=== PATIENT | male | born 1975 | race Caucasian/White ===

== ENCOUNTER 2021-08-07 06:22 | Outpatient (REF) | payer OTHER, SELFPAY ==
[2021-08-07 07:19] LABS: MANUAL DIFF FLAG NO
[2021-08-07 07:29] LABS: Basophils Percent Auto 0.8 % (0-2); Eosinophils Absolute Auto 0.1 X10*3/uL (0.0-0.4); Eosinophils Percent Auto 3.3 % (0-4); Hematocrit 48.2 % (42-52); Hemoglobin 16.3 g/dl (14.0-18.0); Imm Gran Abs Auto 0.02 X10*3/uL (0.00-0.03); Imm Gran Pct Auto 0.5 % (0.0-0.4); Lymphocytes Absolute Auto 1.2 X10*3/uL (1.2-4.9); Lymphocytes Percent Auto 30.5 % (20-40); Mean Corpuscular HGB Conc 33.8 g/dl (31.0-36.0); Mean Corpuscular Hemoglobin 33.2 pg (27.0-33.0); Mean Corpuscular Volume 98.2 fL (80-98); Mean Platelet Volume 10.4 fL (9.4-12.4); Monocytes Absolute Auto 0.6 X10*3/uL (0.1-1.2); Neutrophils Percent Auto 50.9 % (45-73); Platelet Count 190 X10*3/uL (160-400); Red Blood Count 4.91 X10*6/uL (4.60-5.80); Red Cell Distribution Width 12.1 % (11.0-16.0); White Blood Count 3.9 X10*3/uL (4.8-10.8)
[2021-08-07 07:57] LABS: Alanine Aminotransferase 101 U/L (0-40); Albumin Level 4.3 g/dL (3.5-5.0); Alkaline Phosphatase 64 U/L (39-117); Anion Gap 16 (12-20); Aspartate Amino Transferase 91 U/L (5-37); Bilirubin Total 0.4 mg/dL (0.0-1.0); Blood Urea Nitrogen 9 mg/dL (9-16); Calcium 9.1 mg/dL (8.4-10.2); Carbon Dioxide 24 mmol/L (22-29); Chloride 105 mmol/L (96-108); Cholesterol 131 mg/dL; Estimated Glomerular Filt Rate > 60; Glucose Random 103 mg/dL (60-115); HDL Cholesterol 44 mg/dL; Iron 99 mcg/dL (45-160); LDL Cholesterol Calculated 56 mg/dl; Percent Iron Saturation 26 % (15-50); Potassium 4.1 mmol/L (3.3-5.1); Sodium 141 mmol/L (135-145); Total Iron Binding Capacity 388 mcg/dL (228-428); Total Protein 7.3 g/dL (6.5-8.0); Triglycerides 159 mg/dL; Unsaturated Iron Binding 289 ug/dL
[2021-08-07 08:13] LABS: Ferritin 243 ng/mL (20-250); TSH reflex Free T4 1.36 uIU/mL (0.32-4.0)
== END 2021-08-07 06:23 | disposition home or self-care (01) ==
LOC: HO.LAB 06:22
PROVIDERS: PCP Internal Medicine; Visit Provider Internal Medicine
DX: Z00.00 Encounter for general adult medical examination without abnormal findings (principal); I10 Essential (primary) hypertension; K62.9 Disease of anus and rectum, unspecified; R53.0 Neoplastic (malignant) related fatigue
CPT/HCPCS: 36415; 80053; 80061; 82043; 82728; 83540; 84443; 85025

== ENCOUNTER → 2022-11-05 13:42 | Outpatient (BNVA) | payer SELFPAY | PROVIDERS: PCP Internal Medicine; Visit Provider Internal Medicine | DX: Z02.79 Encounter for issue of other medical certificate (principal) ==

== ENCOUNTER 2023-09-17 10:07 | Outpatient (REF) | payer OTHER, SELFPAY ==
--- NOTE | ~2023-09-17 | MR_ITS ---
EXAMINATION: MR ABDOMEN WITHOUT AND WITH CONTRAST CLINICAL INFORMATION: Colorectal carcinoma, history of perineal abscess, new liver lesion found on outside examination COMPARISON: CT scan of chest on 09/10/2023 at [facility] TECHNIQUE: Examination was performed in a high field strength MRI scanner. Multiplanar multiphasic imaging of the abdomen was performed without IV contrast enhancement. Multiphasic Axial T1 weighted fat suppressed images of the upper abdomen were obtained after IV injection of 10 mL Eovist. Coronal T1 weighted fat-suppressed images of the abdomen were obtained following the dynamic axial series. FINDINGS: LIVER: The liver is mildly enlarged, measuring 21.4 cm in vertical length. In anterior medial border of left hepatic lobe segment 3, a hypoenhancing observation is seen measuring 3.0 cm in AP and transverse diameter showing no signs of hepatobiliary phase signal hyperintensity. The lesion shows mild to moderate T2 hyperintensity, win enhancement. The calculated hepatic fat percentage is 0.7%, compatible with normal. HEPATOBILIARY: Gallbladder is normal without filling defects. Common bile duct is not dilated. PANCREAS: No focal pancreatic lesion with abnormal signal can be seen. SPLEEN: Spleen is borderline enlarged, measuring 12.8 cm in oblique vertical length without focal lesion. ADRENAL: Bilateral adrenal glands are normal in shape and size. KIDNEYS: Bilateral kidneys are normal in size without focal lesion. MR/MR abdomen wo/w con IMPRESSION: 1. Findings confirm the presence of mass lesion at anterior medial border of left hepatic lobe segment 3 showing no hepatobiliary contrast filling. Findings are not diagnostic for focal nodular hyperplasia. There are imaging findings favoring LR-M lesion. 2. No evidence of gallstones or hepatobiliary duct dilatation. 3. No focal pancreatic lesion is found.
[2023-09-17] MEDS: Gadoxetate Disodium 10 ML VIAL IVPUSH (11:30)
== END 2023-09-17 10:08 | disposition home or self-care (01) ==
LOC: HO.MRI 10:07
PROVIDERS: PCP Internal Medicine; Visit Provider Internal Medicine
DX: K76.9 Liver disease, unspecified (principal); C20 Malignant neoplasm of rectum
CPT/HCPCS: 74183; A9581

== ENCOUNTER → 2023-09-21 15:40 | Outpatient (BNV) | payer OTHER, SELFPAY | PROVIDERS: PCP Internal Medicine; Visit Provider Internal Medicine | DX: C20 Malignant neoplasm of rectum (principal) | CPT/HCPCS: 99214; 99215; G2211 ==

== ENCOUNTER → 2023-11-03 07:54 | Outpatient (BNVA) | payer SELFPAY | PROVIDERS: PCP Internal Medicine; Visit Provider Internal Medicine | DX: Z02.79 Encounter for issue of other medical certificate (principal) ==

== ENCOUNTER 2024-04-04 10:43 | Outpatient (AMB) | payer OTHER, SELFPAY ==
[2024-04-04 10:46] VITALS: BP 102/70; PULSE 90; O2SAT 97; BMI 33.7
--- NOTE | 2024-04-04 10:46 | MHC.OFFVIS ---
Vital Signs 04/04/24 10:46 Height 5 ft 11 in Weight 242 lb BMI 33.7 BP 102/70 Blood Pressure Location Lt brachial Position Sitting Pulse 90 Pulse Source Pulse Oximeter Pulse Oximetry (%) 97 Oxygen Delivery Method Room Air Intake Visit Reasons: sleep apnea Intake Note: pt is here new patient for KRYSTLE, pt has lost 40 lbs and is questioning if he still needs it. Has not used since February, post surgery. Foreign Student Adviser Required: No Allergies lisinopril Allergy (Verified 04/04/24 11:12) Cough Medication List - Last Reconciled 04/04/24 by Sujit Deleon MD losartan 100 mg PO DAILY metoprolol succinate ER 50 mg PO DAILY ondansetron 8 mg PO Q8H PRN Do you need a note to return to daycare/school/sports/work: No HPI HPI sleep apnea: Details: This the 1st visit of this 48 years old very pleasant gentleman, related to his history of obstructive sleep apnea.. Back in 2018 he had a home-based sleep study which was positive for severe obstructive sleep apnea with total sleep time RDI 68. He had symptoms of frequent snoring and respiratory pauses, as noted by his at that time. He also had some daytime sleepiness. After the diagnosis of obstructive sleep apnea he had CPAP titration in the sleep lab, and started on CPAP of 14 cm. He was followed up by sleep medicine services of [facility], he was very compliant and did well. In year 2022 he was diagnosed to have colon cancer with liver Mets. Initially treated at [facility] and received chemo radiation therapy. Then he went to [facility], where he had resection of the metastatic lesion in the liver and also colon resection. This was done only about 2 months ago. He is now receiving chemotherapy at our oncology service by Dr. Almaraz . He is tolerating the chemotherapy. And is very happy , not having any significant GI symptoms. He is also happy that he is not having any significant side effects from the chemotherapy. During all this ordeal he has lost more than 40 lb of weight. Since about 6 weeks he has not use the CPAP and is sleeping well. His has not complained to him about snoring or any respiratory pauses. He comes today to discuss if he would still need to use the CPAP are not. This gentleman is nonsmoker and also does not have any ongoing respiratory problems. [facility] Medical History KRYSTLE (obstructive sleep apnea) Obesity (BMI 30-39.9) Abscess, scrotum HBP (high blood pressure) Family History Brother Testicular cancer Maternal Aunt Breast CA Paternal Grandmother Uterine cancer Maternal Grandmother Cervical ca Social History Household Members: Spouse Patient Tobacco Use Status: Never used Tobacco service: Yes Current occupational status: employed Review of Systems Const All systems reviewed & are unremarkable except as noted in HPI and below Denies snoring Eyes Reports no additional complaints ENT Reports no additional complaints Card Denies chest pain, Denies syncope, Denies irregular heart rhythm, Denies leg edema and Denies dyspnea on exertion Resp Reports no additional complaints, Denies cough, Denies dyspnea on exertion, Denies snoring and Denies wheezing GI Reports no additional complaints Reports no additional complaints Musc Reports no additional complaints Skin/Breast Reports system reviewed and no additional complaints, except as documented Neuro Reports no additional complaints and Denies syncope Psych Reports no additional complaints Endo Reports no additional complaints Aller/Immun Denies wheezing Physical Exam Vital Signs: Last Vital Signs Pulse 90 04/04/24 10:46 BP 102/70 04/04/24 10:46 Pulse Ox 97 04/04/24 10:46 Oxygen Delivery Method Room Air 04/04/24 10:46 BMI result Body Mass Index 33.7 Const General: healthy appearing, comfortable, no acute distress, alert and awake Orientation/consciousness: patient oriented x3 HEENT Head: Yes normal to inspection General nose exam: No nasal polyps present and No nasal discharge present Face and sinus: Yes sinuses nontender Mouth: oropharynx normal (Mallampati class 2) Throat: Yes posterior oropharynx normal Eyes General: appearance normal, both eyes and all related structures Neck Neck: Yes normal visual inspection, Yes no lymphadenopathy, Yes trachea midline, Yes no JVD and Yes other (Neck circumference 17 in) Thyroid: Thyroid normal Chest Chest palpation & inspection: normal inspection of the chest, normal palpation of entire chest wall and no tenderness Resp Effort & Inspection: normal respiratory effort Auscultation: clear to auscultation bilaterally, no crackles, no rhonchi and no wheezes Cardio Palpation: normal PMI Rate: regular rate Rhythm: regular rhythm Heart sounds: no gallops and no murmurs Peripheral pulses: Peripheral pulses 2+ throughout GI Palpation (GI): Soft to palpation, nontender, No hepatosplenomegaly present and no masses Auscultation: normal bowel sounds Back/Spine/Pelvis Thoracic/Lumbar Spine: thoracic and lumbar spine normal to inspection Skin General skin exam: no rashes or lesions noted Neuro General: patient oriented x3 and no focal motor deficits Cranial nerves: Yes CN's II-XII intact bilaterally Extrem General: Yes normal to inspection, Yes no clubbing, cyanosis or edema and Yes no calf tenderness Psych Speech and movement: Normal speech and movement present Assessment & Plan Assessment & Plan (1) Obesity (BMI 30-39.9): Comment: He is only moderately overweight with BMI of 33.8. He has lost about 40+ lb in the last few months. Code(s): E66.9 - Obesity, unspecified Category: Medical Plan: Discussed about the weight and it will be beneficial if he could lose another 10-15 lb. But at least he should make sure he does not start putting on weight (2) KRYSTLE (obstructive sleep apnea): Comment: He does have history of obstructive sleep apnea which was relatively severe to start with. It responded very well to the treatment with CPAP, and he was very compliant before recent surgery. Now because of weight loss of more than 40 lb he is wondering if he still needs CPAP. At present he does not have any active symptoms of sleep apnea. Code(s): G47.33 - Obstructive sleep apnea (adult) (pediatric) Category: Medical Plan: Plan is to do a home-based sleep study, to see if he has and how much of residual sleep apnea. Then we can discuss and decide if he should restart using the CPAP. Orders: Orders RT home sleep study Today E66.9 - Obesity, unspecified, G47.33 - Obstructive sleep apnea (adult) (pediatric) Medications: Discontinued dexamethasone for 2 days after chemo Discontinued Reason: Patient Completed Course 4 mg PO BID 30 tabs 3RF Coding Level of Care Code New Pt Level 3 (33555) Diagnoses Obesity (BMI 30-39.9) E66.9 KRYSTLE (obstructive sleep apnea) G47.33
== END 2024-04-04 11:10 | disposition home or self-care (01) ==
PROVIDERS: PCP Internal Medicine; Visit Provider Internal Medicine
DX: E66.9 Obesity, unspecified (principal); G47.33 Obstructive sleep apnea (adult) (pediatric)
CPT/HCPCS: 99203

== ENCOUNTER → 2024-04-04 10:43 | Outpatient (BNVA) | payer OTHER, SELFPAY | PROVIDERS: PCP Internal Medicine; Visit Provider Internal Medicine ==

== ENCOUNTER → 2024-05-16 10:01 | Outpatient (REF) | payer OTHER, SELFPAY | LOC: HO.SL 10:01 | PROVIDERS: PCP Internal Medicine; Visit Provider Internal Medicine | DX: G47.33 Obstructive sleep apnea (adult) (pediatric) (principal); E66.9 Obesity, unspecified | CPT/HCPCS: 95806 ==

== ENCOUNTER → 2024-05-16 10:19 | Outpatient (BNV) | payer OTHER, SELFPAY | PROVIDERS: PCP Internal Medicine; Visit Provider Internal Medicine | DX: G47.33 Obstructive sleep apnea (adult) (pediatric) (principal) | CPT/HCPCS: 95806 ==

== ENCOUNTER 2024-06-05 15:51 | Outpatient (AMB) | payer OTHER, SELFPAY ==
[2024-06-05 16:01] VITALS: BP 110/80; PULSE 84; O2SAT 98; BMI 35.7
--- NOTE | 2024-06-05 16:01 | A.OFFVIS_ITS ---
Vital Signs 06/05/24 16:01 Height 5 ft 11 in Weight 255 lb 11.779 oz BMI 35.7 BP 110/80 Blood Pressure Location Lt brachial Position Sitting Pulse 84 Pulse Source Pulse Oximeter Pulse Oximetry (%) 98 Oxygen Delivery Method Room Air Intake Visit Reasons: Obstructive sleep apnea Intake Note: pt is here for follow up and feels good, here for follow up of sleep study. 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 In 2022 diagnosed to have colon cancer with Mets, treated with chemotherapy successfully. He had lost 40 lb of weight. And had stop using the CPAP. Recently seen by me because he started having increased snoring and fragmented of the sleep with some daytime sleepiness. We did his home-based sleep study and he is here to discuss the results. He claims that he sleeps most of the time on his back. And is sleeping fairly well. [facility] Medical History KRYSTLE (obstructive sleep apnea) Obesity (BMI 30-39.9) Abscess, scrotum HBP (high blood pressure) Family History Brother Testicular cancer Maternal Aunt Breast CA Paternal Grandmother Uterine cancer Maternal Grandmother Cervical ca Social History Household Members: Spouse Patient Tobacco Use Status: Never used Tobacco service: Yes Current occupational status: employed Review of Systems Const All systems reviewed & are unremarkable except as noted in HPI and below Denies snoring Eyes Reports no additional complaints ENT Reports no additional complaints Card Denies chest pain, Denies syncope, Denies irregular heart rhythm, Denies leg edema and Denies dyspnea on exertion Resp Reports no additional complaints, Denies cough, Denies dyspnea on exertion, Denies snoring and Denies wheezing GI Reports no additional complaints Reports no additional complaints Musc Reports no additional complaints Skin/Breast Reports system reviewed and no additional complaints, except as documented Neuro Reports no additional complaints and Denies syncope Psych Reports no additional complaints Endo Reports no additional complaints Aller/Immun Denies wheezing Physical Exam Vital Signs: Last Vital Signs Pulse 84 06/05/24 16:01 BP 110/80 06/05/24 16:01 Pulse Ox 98 06/05/24 16:01 Oxygen Delivery Method Room Air 06/05/24 16:01 BMI result Body Mass Index 35.7 Const General: healthy appearing, comfortable, no acute distress, alert and awake Orientation/consciousness: patient oriented x3 HEENT Head: Yes normal to inspection General nose exam: No nasal polyps present and No nasal discharge present Face and sinus: Yes sinuses nontender Mouth: oropharynx normal (Mallampati class 2) Throat: Yes posterior oropharynx normal Eyes General: appearance normal, both eyes and all related structures Neck Neck: Yes normal visual inspection, Yes no lymphadenopathy, Yes trachea midline, Yes no JVD and Yes other (Neck circumference 17 in) Thyroid: Thyroid normal Chest Chest palpation & inspection: normal inspection of the chest, normal palpation of entire chest wall and no tenderness Resp Effort & Inspection: normal respiratory effort Auscultation: clear to auscultation bilaterally, no crackles, no rhonchi and no wheezes Cardio Palpation: normal PMI Rate: regular rate Rhythm: regular rhythm Heart sounds: no gallops and no murmurs Peripheral pulses: Peripheral pulses 2+ throughout GI Palpation (GI): Soft to palpation, nontender, No hepatosplenomegaly present and no masses Auscultation: normal bowel sounds Back/Spine/Pelvis Thoracic/Lumbar Spine: thoracic and lumbar spine normal to inspection Skin General skin exam: no rashes or lesions noted Neuro General: patient oriented x3 and no focal motor deficits Cranial nerves: Yes CN's II-XII intact bilaterally Extrem General: Yes normal to inspection, Yes no clubbing, cyanosis or edema and Yes no calf tenderness Psych Speech and movement: Normal speech and movement present Results Reviewed Results Reviewed: Home-based sleep study, positive for rather severe degree of obstructive sleep apnea with nocturnal hypoxemia. O2 sat was below 88% for 51 minute. Assessment & Plan Assessment & Plan (1) Obesity (BMI 30-39.9): Comment: He is only moderately overweight with BMI of 35.7 He has lost about 40+ lb in the past 6 months . Now it is at a stand still . Code(s): E66.9 - Obesity, unspecified Category: Medical Plan: Advised to continue watching his diet and, make sure not to start putting on the weight again. (2) KRYSTLE (obstructive sleep apnea): Comment: He does have history of obstructive sleep apnea which was relatively severe to start with. It responded very well to the treatment with CPAP, and he was very compliant before recent surgery. Now because of weight loss of more than 40 lb he is wondering if he still needs CPAP. As noted above the repeat sleep study has shown that he still has rather severe degree of KRYSTLE, and nocturnal hypoxemia. Code(s): G47.33 - Obstructive sleep apnea (adult) (pediatric) Category: Medical Plan: Discuss the results with the patient and I have advise that he should go back on CPAP . Therapy CPAP with auto PAP mode and pressure setting 6-20 cm is ordered. He will start with fullface mask and later on may be changed to nasal mask or nasal pillows. Once he starts using CPAP regularly, we will get overnight oximetry recording to make sure that hypoxemia is corrected. Coding Level of Care Code Est Pt Level 3 (04454) Diagnoses Obesity (BMI 30-39.9) E66.9 KRYSTLE (obstructive sleep apnea) G47.33
== END 2024-06-05 16:28 | disposition home or self-care (01) ==
PROVIDERS: PCP Internal Medicine; Visit Provider Internal Medicine
DX: E66.9 Obesity, unspecified (principal); G47.33 Obstructive sleep apnea (adult) (pediatric)
CPT/HCPCS: 99213

== ENCOUNTER → 2024-06-05 15:51 | Outpatient (BNVA) | payer OTHER, SELFPAY | PROVIDERS: PCP Internal Medicine; Visit Provider Internal Medicine ==

== ENCOUNTER 2024-07-29 08:18 | Outpatient (REF) | payer OTHER, SELFPAY ==
[2024-07-29 08:46] LABS: MANUAL DIFF FLAG NO
[2024-07-29 09:26] LABS: Appearance Urine Clear; Color Urine Yellow; Glucose Urine UA Negative (Negative); Leukocyte Esterase Urine Negative (Negative); Nitrite Urine Negative (Negative); Specific Gravity - Urine <= 1.005 (1.005-1.025); Urine Blood Negative (Negative); Urine Ketones Negative (Negative); Urine Protein Negative (Neg-Trace)
[2024-07-29 09:29] LABS: Basophils Percent Auto 0.6 % (0-2); Eosinophils Absolute Auto 0.1 X10*3/uL (0.0-0.4); Eosinophils Percent Auto 1.9 % (0-4); Hematocrit 34.7 % (42.0-52.0); Hemoglobin 11.1 g/dl (14.0-18.0); Imm Gran Abs Auto 0.02 X10*3/uL (0.00-0.03); Imm Gran Pct Auto 0.6 % (0.0-0.4); Lymphocytes Absolute Auto 0.5 X10*3/uL (1.2-4.9); Lymphocytes Percent Auto 14.9 % (20-40); Mean Corpuscular Hemoglobin 26.2 pg (27.0-33.0); Mean Corpuscular Volume 81.8 fL (80.0-98.0); Mean Platelet Volume 9.5 fL (9.4-12.4); Monocytes Absolute Auto 0.6 X10*3/uL (0.1-1.2); Monocytes Percent Auto 17.1 % (2-11); Neutrophils Absolute Auto 2.4 x10*3/uL (2.0-8.3); Neutrophils Percent Auto 64.9 % (45-73); Platelet Count 208 X10*3/uL (160-400); Red Blood Count 4.24 X10*6/uL (4.60-5.80); Red Cell Distribution Width 20.4 % (11.0-16.0); White Blood Count 3.6 X10*3/uL (4.8-10.8)
[2024-07-29 10:02] LABS: Alanine Aminotransferase 17 U/L (0-40); Albumin Level 3.9 g/dL (3.5-5.0); Alkaline Phosphatase 120 U/L (39-117); Anion Gap 15 (12-20); Aspartate Amino Transferase 20 U/L (5-37); Bilirubin Total 0.3 mg/dL (0.0-1.0); Blood Urea Nitrogen 6 mg/dL (9-16); Calcium 9.2 mg/dL (8.4-10.2); Carbon Dioxide 24 mmol/L (22-29); Chloride 106 mmol/L (96-108); Estimated Glomerular Filt Rate > 60; Glucose Random 111 mg/dL (60-115); Potassium 3.6 mmol/L (3.3-5.1); Sodium 141 mmol/L (135-145); Total Protein 6.8 g/dL (6.5-8.0)
== END 2024-07-29 08:19 | disposition home or self-care (01) ==
LOC: HO.LAB 08:18
PROVIDERS: PCP Internal Medicine; Visit Provider Internal Medicine
DX: C20 Malignant neoplasm of rectum (principal)
CPT/HCPCS: 36415; 80053; 81003; 85025

== ENCOUNTER 2024-08-01 15:08 | Outpatient (AMB) | payer OTHER, SELFPAY ==
--- NOTE | 2024-08-01 15:10 | A.OFFVIS_ITS ---
Vital Signs 08/01/24 15:11 Weight 253 lb 8.505 oz BP 128/78 Blood Pressure Location Rt brachial Position Sitting Pulse 87 Pulse Source Pulse Oximeter Pulse Oximetry (%) 96 Oxygen Delivery Method Room Air Intake Visit Reasons: krystle Allergies lisinopril Allergy (Verified 08/01/24 15:26) Cough bee pollen [bee stings] Adverse Reaction (Verified 08/01/24 15:26) Swelling Medication List - Last Reconciled 08/01/24 by Teri Saravia LPN dexamethasone 4 mg PO BID diphenoxylate-atropine 2.5-0.025 mg (Lomotil) 1 tab PO DAILY metoprolol succinate ER 50 mg PO DAILY ondansetron 8 mg PO Q8H PRN Do you need a note to return to daycare/school/sports/work: No HPI HPI krystle: Details: Mitch, 48 years old gentleman, grossly obese, and has obstructive sleep apnea. Initially had stopped using the CPAP because he had lost about 40 lb of weight, during his ordeal with metastatic colon cancer. Repeat sleep study showed that he still had significant degree of obstructive sleep apnea. Since last visit he was prescribed CPAP device. He started using it on July 02 and since then has been using regularly. He loves his CPAP, and say is that actually without CPAP he would not be able to sleep. The current nasal mask that he has is much more comfortable than his previous 1. He sleeps good and denies any daytime sleepiness. His weight is holding at the same level , this is partly because he is on dexamethasone 4 mg b.i.d. as part of his ongoing chemotherapy for metastatic cancer. [facility] Medical History KRYSTLE (obstructive sleep apnea) Obesity (BMI 30-39.9) Abscess, scrotum HBP (high blood pressure) Family History Brother Testicular cancer Maternal Aunt Breast CA Paternal Grandmother Uterine cancer Maternal Grandmother Cervical ca Social History Household Members: Spouse Patient Tobacco Use Status: Never used Tobacco service: Yes Current occupational status: employed Review of Systems Const All systems reviewed & are unremarkable except as noted in HPI and below Denies snoring Eyes Reports no additional complaints ENT Reports no additional complaints Card Denies chest pain, Denies syncope, Denies irregular heart rhythm, Denies leg edema and Denies dyspnea on exertion Resp Reports no additional complaints, Denies cough, Denies dyspnea on exertion, Denies snoring and Denies wheezing GI Reports no additional complaints Reports no additional complaints Musc Reports no additional complaints Skin/Breast Reports system reviewed and no additional complaints, except as documented Neuro Reports no additional complaints and Denies syncope Psych Reports no additional complaints Endo Reports no additional complaints Aller/Immun Denies wheezing Physical Exam Vital Signs: Last Vital Signs Pulse 87 08/01/24 15:11 BP 128/78 08/01/24 15:11 Pulse Ox 96 08/01/24 15:11 Oxygen Delivery Method Room Air 08/01/24 15:11 Const General: healthy appearing, comfortable, no acute distress, alert and awake Orientation/consciousness: patient oriented x3 HEENT Head: Yes normal to inspection General nose exam: No nasal polyps present and No nasal discharge present Face and sinus: Yes sinuses nontender Mouth: oropharynx normal (Mallampati class 2) Throat: Yes posterior oropharynx normal Eyes General: appearance normal, both eyes and all related structures Neck Neck: Yes normal visual inspection, Yes no lymphadenopathy, Yes trachea midline, Yes no JVD and Yes other (Neck circumference 17 in) Thyroid: Thyroid normal Chest Chest palpation & inspection: normal inspection of the chest, normal palpation of entire chest wall and no tenderness Resp Effort & Inspection: normal respiratory effort Auscultation: clear to auscultation bilaterally, no crackles, no rhonchi and no wheezes Cardio Palpation: normal PMI Rate: regular rate Rhythm: regular rhythm Heart sounds: no gallops and no murmurs Peripheral pulses: Peripheral pulses 2+ throughout GI Palpation (GI): Soft to palpation, nontender, No hepatosplenomegaly present and no masses Auscultation: normal bowel sounds Back/Spine/Pelvis Thoracic/Lumbar Spine: thoracic and lumbar spine normal to inspection Skin General skin exam: no rashes or lesions noted Neuro General: patient oriented x3 and no focal motor deficits Cranial nerves: Yes CN's II-XII intact bilaterally Extrem General: Yes normal to inspection, Yes no clubbing, cyanosis or edema and Yes no calf tenderness Psych Speech and movement: Normal speech and movement present Results Reviewed Results Reviewed: Compliance report reviewed and he has used 18/30 nights because he started on July 10. Since then he is using 100% of the nights. Average use it per night 7 hours 7 minutes. Pressure used is 7-8 cm. There is minimal air leak, Residual AHI 0.4 Assessment & Plan Assessment & Plan (1) Obesity (BMI 30-39.9): Comment: He is only moderately overweight with BMI of 35.7 He had lost about 40+ lb in the past 6 months . Now it is at a stand still . Code(s): E66.9 - Obesity, unspecified Category: Medical Plan: I do not think he can be in active weight reduction program. Try to maintain. At a stable level (2) KRYSTLE (obstructive sleep apnea): Comment: He does have history of obstructive sleep apnea which was relatively severe to start with. It responded very well to the treatment with CPAP, and he was very compliant before recent surgery. Now because of weight loss of more than 40 lb he is wondering if he still needs CPAP. As noted above the repeat sleep study did show that he still has relatively severe KRYSTLE. Has been started on CPAP therapy which he likes very much, and feels better. Code(s): G47.33 - Obstructive sleep apnea (adult) (pediatric) Category: Medical Plan: Commended for good compliance and advised to continue using CPAP every night regularly (3) Rectal adenocarcinoma: Comment: He has history of metastatic adeno carcinoma of rectum. Being treated successfully with chemotherapy. He is very appreciative of the care that he is getting at oncology service. Code(s): C20 - Malignant neoplasm of rectum Category: Medical Plan: Continue close follow-up by the oncology service Coding Level of Care Code Est Pt Level 3 (08855) Diagnoses Obesity (BMI 30-39.9) E66.9 KRYSTLE (obstructive sleep apnea) G47.33 Rectal adenocarcinoma C20
[2024-08-01 15:11] VITALS: BP 128/78; PULSE 87; O2SAT 96
== END 2024-08-01 15:27 | disposition home or self-care (01) ==
PROVIDERS: PCP Internal Medicine; Visit Provider Internal Medicine
DX: E66.9 Obesity, unspecified (principal); G47.33 Obstructive sleep apnea (adult) (pediatric); C20 Malignant neoplasm of rectum
CPT/HCPCS: 99213

== ENCOUNTER → 2024-08-01 15:08 | Outpatient (BNVA) | payer OTHER, SELFPAY | PROVIDERS: PCP Internal Medicine; Visit Provider Internal Medicine ==

== ENCOUNTER 2024-10-07 07:54 | Outpatient (REF) | payer OTHER, SELFPAY ==
[2024-10-07 08:08] LABS: MANUAL DIFF FLAG NO
[2024-10-07 08:15] LABS: Appearance Urine Clear; Color Urine Yellow; Glucose Urine UA Negative (Negative); Leukocyte Esterase Urine Negative (Negative); Nitrite Urine Negative (Negative); Specific Gravity - Urine <= 1.005 (1.005-1.025); Urine Blood Negative (Negative); Urine Ketones Negative (Negative); Urine Protein Negative (Neg-Trace)
[2024-10-07 08:19] LABS: Basophils Percent Auto 0.6 % (0-2); Eosinophils Absolute Auto 0.1 X10*3/uL (0.0-0.4); Eosinophils Percent Auto 2.1 % (0-4); Hematocrit 34.2 % (42.0-52.0); Hemoglobin 11.2 g/dl (14.0-18.0); Imm Gran Abs Auto 0.01 X10*3/uL (0.00-0.03); Imm Gran Pct Auto 0.3 % (0.0-0.4); Lymphocytes Absolute Auto 0.6 X10*3/uL (1.2-4.9); Lymphocytes Percent Auto 18.3 % (20-40); Mean Corpuscular HGB Conc 32.7 g/dl (31.0-36.0); Mean Corpuscular Hemoglobin 29.3 pg (27.0-33.0); Mean Corpuscular Volume 89.5 fL (80.0-98.0); Mean Platelet Volume 9.1 fL (9.4-12.4); Monocytes Absolute Auto 0.6 X10*3/uL (0.1-1.2); Monocytes Percent Auto 18.3 % (2-11); Neutrophils Percent Auto 60.4 % (45-73); Platelet Count 161 X10*3/uL (160-400); Red Blood Count 3.82 X10*6/uL (4.60-5.80); Red Cell Distribution Width 21.2 % (11.0-16.0); White Blood Count 3.3 X10*3/uL (4.8-10.8)
[2024-10-07 08:27] LABS: Alanine Aminotransferase 23 U/L (0-40); Albumin Level 3.6 g/dL (3.5-5.0); Alkaline Phosphatase 108 U/L (39-117); Anion Gap 18 (12-20); Aspartate Amino Transferase 26 U/L (5-37); Bilirubin Total 0.4 mg/dL (0.0-1.0); Blood Urea Nitrogen 6 mg/dL (9-16); Calcium 8.9 mg/dL (8.4-10.2); Carbon Dioxide 20 mmol/L (22-29); Chloride 104 mmol/L (96-108); Estimated Glomerular Filt Rate > 60; Glucose Random 116 mg/dL (60-115); Sodium 138 mmol/L (135-145); Total Protein 6.2 g/dL (6.5-8.0)
== END 2024-10-07 07:55 | disposition home or self-care (01) ==
LOC: HO.LAB 07:54
PROVIDERS: PCP Internal Medicine; Visit Provider Internal Medicine
DX: C20 Malignant neoplasm of rectum (principal)
CPT/HCPCS: 36415; 80053; 81003; 85025

== ENCOUNTER 2024-10-21 07:11 | Outpatient (REF) | payer OTHER, SELFPAY ==
[2024-10-21 07:53] LABS: MANUAL DIFF FLAG NO
[2024-10-21 09:06] LABS: Basophils Percent Auto 0.3 % (0-2); Eosinophils Percent Auto 1.2 % (0-4); Hematocrit 33.7 % (42.0-52.0); Hemoglobin 11.1 g/dl (14.0-18.0); Imm Gran Abs Auto 0.02 X10*3/uL (0.00-0.03); Imm Gran Pct Auto 0.6 % (0.0-0.4); Lymphocytes Absolute Auto 0.4 X10*3/uL (1.2-4.9); Lymphocytes Percent Auto 13.6 % (20-40); Mean Corpuscular HGB Conc 32.9 g/dl (31.0-36.0); Mean Corpuscular Hemoglobin 30.5 pg (27.0-33.0); Mean Corpuscular Volume 92.6 fL (80.0-98.0); Mean Platelet Volume 9.7 fL (9.4-12.4); Monocytes Absolute Auto 0.6 X10*3/uL (0.1-1.2); Neutrophils Absolute Auto 2.2 x10*3/uL (2.0-8.3); Neutrophils Percent Auto 67.3 % (45-73); Platelet Count 156 X10*3/uL (160-400); Red Blood Count 3.64 X10*6/uL (4.60-5.80); Red Cell Distribution Width 19.9 % (11.0-16.0); White Blood Count 3.2 X10*3/uL (4.8-10.8)
[2024-10-21 09:44] LABS: Alanine Aminotransferase 17 U/L (0-40); Albumin Level 3.8 g/dL (3.5-5.0); Alkaline Phosphatase 88 U/L (39-117); Anion Gap 16 (12-20); Aspartate Amino Transferase 22 U/L (5-37); Bilirubin Total 0.3 mg/dL (0.0-1.0); Blood Urea Nitrogen 9 mg/dL (9-16); Calcium 8.9 mg/dL (8.4-10.2); Carbon Dioxide 23 mmol/L (22-29); Chloride 106 mmol/L (96-108); Estimated Glomerular Filt Rate > 60; Glucose Random 103 mg/dL (60-115); Potassium 3.8 mmol/L (3.3-5.1); Sodium 141 mmol/L (135-145); Total Protein 6.6 g/dL (6.5-8.0)
[2024-10-21 09:57] LABS: Appearance Urine Clear; Color Urine Yellow; Glucose Urine UA Negative (Negative); Leukocyte Esterase Urine Negative (Negative); Nitrite Urine Negative (Negative); PH 5.5 (5.0-9.0); Urine Blood Negative (Negative); Urine Ketones Negative (Negative); Urine Protein Trace mg/dL (Neg-Trace)
== END 2024-10-21 07:12 | disposition home or self-care (01) ==
LOC: HO.LAB 07:11
PROVIDERS: PCP Internal Medicine; Visit Provider Internal Medicine
DX: C20 Malignant neoplasm of rectum (principal)
CPT/HCPCS: 36415; 80053; 81003; 85025

== ENCOUNTER → 2024-10-27 12:56 | Outpatient (BNVA) | payer SELFPAY | PROVIDERS: PCP Internal Medicine; Visit Provider Registered Nurse | DX: Z02.79 Encounter for issue of other medical certificate (principal) ==

== ENCOUNTER 2024-12-04 15:20 | Outpatient (AMB) | payer OTHER, SELFPAY ==
[2024-12-04 15:29] VITALS: BP 110/72; PULSE 98; O2SAT 97; BMI 36.1
--- NOTE | 2024-12-04 15:29 | MHC.OFFVIS ---
Vital Signs 12/04/24 15:29 Height 5 ft 11 in Weight 259 lb 0.69 oz BMI 36.1 BP 110/72 Blood Pressure Location Lt brachial Position Sitting Pulse 98 Pulse Source Pulse Oximeter Pulse Oximetry (%) 97 Oxygen Delivery Method Room Air Intake Visit Reasons: krystle Intake Note: pt is here for follow up and states he is doing well with cpap Allergies lisinopril Allergy (Verified 12/04/24 15:49) Cough bee pollen [bee stings] Adverse Reaction (Verified 12/04/24 15:49) Swelling Medication List - Last Reviewed 12/04/24 by SARAHY Harkins apixaban 10 mg PO DAILY dexamethasone 4 mg PO BID diphenoxylate-atropine 2.5-0.025 mg 1 tab PO BID PRN metoprolol succinate ER 50 mg PO DAILY ondansetron 8 mg PO Q8H PRN Do you need a note to return to daycare/school/sports/work: No HPI HPI krystle: Details: TRISHA IS 48 YEARS OLD GENTLEMAN GROSSLY OBESE, WITH A KNOWN HISTORY OF COLON CANCER AND LIVER METS. HE HAS HAD RESECTION OF THE LIVER METS WELL RESECTION OF THE COLON AT [facility], AND IS BEING TREATED WITH CHEMOTHERAPY AT OUR ON ONCOLOGY SERVICE/ DR BROWN . HE IS DOING VERY WELL. HE HAS NOT LOST ANY WEIGHT. CONTINUES TO HAVE OBSTRUCTIVE SLEEP APNEA, WHICH IS WELL TREATED WITH THE USE OF CPAP. HIS CURRENT FULLFACE MASK IS VERY COMFORTABLE AND HE LIKES TO USE IT. RECENTLY FOUND TO HAVE PULMONARY EMBOLI ON THE CT SCAN . AT [facility] AND HE IS ON APIXABAN 10 MG DAILY. THIS GENTLEMAN DOES NOT HAVE ANY CHRONIC PULMONARY DISEASE SUCH ASTHMA OR COPD. [facility] Medical History KRYSTLE (obstructive sleep apnea) Obesity (BMI 30-39.9) Abscess, scrotum HBP (high blood pressure) Family History Brother Testicular cancer Maternal Aunt Breast CA Paternal Grandmother Uterine cancer Maternal Grandmother Cervical ca Social History Household Members: Spouse Patient Tobacco Use Status: Never used Tobacco service: Yes Current occupational status: employed Review of Systems Const All systems reviewed & are unremarkable except as noted in HPI and below Denies snoring Eyes Reports no additional complaints ENT Reports no additional complaints Card Denies chest pain, Denies syncope, Denies irregular heart rhythm, Denies leg edema and Denies dyspnea on exertion Resp Reports no additional complaints, Denies cough, Denies dyspnea on exertion, Denies snoring and Denies wheezing GI Reports no additional complaints Reports no additional complaints Musc Reports no additional complaints Skin/Breast Reports system reviewed and no additional complaints, except as documented Neuro Reports no additional complaints and Denies syncope Psych Reports no additional complaints Endo Reports no additional complaints Aller/Immun Denies wheezing Physical Exam Const General: healthy appearing, comfortable, no acute distress, alert and awake Orientation/consciousness: patient oriented x3 HEENT Head: Yes normal to inspection General nose exam: No nasal polyps present and No nasal discharge present Face and sinus: Yes sinuses nontender Mouth: oropharynx normal (Mallampati class 2) Throat: Yes posterior oropharynx normal Eyes General: appearance normal, both eyes and all related structures Neck Neck: Yes normal visual inspection, Yes no lymphadenopathy, Yes trachea midline, Yes no JVD and Yes other (Neck circumference 17 in) Thyroid: Thyroid normal Chest Chest palpation & inspection: normal inspection of the chest, normal palpation of entire chest wall and no tenderness Resp Effort & Inspection: normal respiratory effort Auscultation: clear to auscultation bilaterally, no crackles, no rhonchi and no wheezes Cardio Palpation: normal PMI Rate: regular rate Rhythm: regular rhythm Heart sounds: no gallops and no murmurs Peripheral pulses: Peripheral pulses 2+ throughout GI Palpation (GI): Soft to palpation, nontender, No hepatosplenomegaly present and no masses Auscultation: normal bowel sounds Back/Spine/Pelvis Thoracic/Lumbar Spine: thoracic and lumbar spine normal to inspection Skin General skin exam: no rashes or lesions noted Neuro General: patient oriented x3 and no focal motor deficits Cranial nerves: Yes CN's II-XII intact bilaterally Extrem General: Yes normal to inspection, Yes no clubbing, cyanosis or edema and Yes no calf tenderness Psych Speech and movement: Normal speech and movement present Results Reviewed Results Reviewed: COMPLIANCE REPORT FOR THE LAST 30 NIGHTS INDICATES THAT HE HAS USED 100% OF THE NIGHTS, AVERAGE USE IT PER NIGHT 6 HOURS 52 MINUTES. THERE IS NO SIGNIFICANT AIR LEAK AND RESIDUAL AHI IS ONLY 0.8 Assessment & Plan Assessment & Plan (1) Obesity (BMI 30-39.9): Comment: He is only moderately overweight with BMI of 36.1 He had lost about 40+ lb in the past 6 months . Now it is at a stand still . Code(s): E66.9 - Obesity, unspecified Category: Medical Plan: DISCUSSED ABOUT DIET, AND NEED TO LOSE WEIGHT. (2) KRYSTLE (obstructive sleep apnea): Comment: He does have history of obstructive sleep apnea which was relatively severe to start with. It responded very well to the treatment with CPAP, and he was very compliant before recent surgery. Now because of weight loss of more than 40 lb he was retested and found to severe obstructive sleep apnea. Since 2023 he is started on a new CPAP device with auto PAP settings. He uses CPAP very regularly and benefiting, with sleep of about 7 hours per night. No issues with the mask and CPAP device at this time. Code(s): G47.33 - Obstructive sleep apnea (adult) (pediatric) Category: Medical Plan: Commended for good compliance. Encouraged to keep on using the CPAP every night (3) Rectal adenocarcinoma: Comment: He has history of metastatic adeno carcinoma of rectum. Being treated successfully with chemotherapy. He is very appreciative of the care that he is getting at oncology service. Code(s): C20 - Malignant neoplasm of rectum Category: Medical Plan: Encouraged to keep on getting his treatment . Coding Level of Care Code Est Pt Level 3 (99146) Diagnoses Obesity (BMI 30-39.9) E66.9 KRYSTLE (obstructive sleep apnea) G47.33 Rectal adenocarcinoma C20
== END 2024-12-04 15:44 | disposition home or self-care (01) ==
PROVIDERS: PCP Internal Medicine; Visit Provider Internal Medicine
DX: E66.9 Obesity, unspecified (principal); G47.33 Obstructive sleep apnea (adult) (pediatric); C20 Malignant neoplasm of rectum
CPT/HCPCS: 99213

== ENCOUNTER 2024-12-09 07:22 | Outpatient (REF) | payer OTHER, SELFPAY ==
[2024-12-09 07:37] LABS: MANUAL DIFF FLAG NO
[2024-12-09 08:12] LABS: Appearance Urine Clear; Color Urine Yellow; Glucose Urine UA Negative (Negative); Leukocyte Esterase Urine Negative (Negative); Nitrite Urine Negative (Negative); PH 5.5 (5.0-9.0); Urine Blood Negative (Negative); Urine Ketones Negative (Negative); Urine Protein Negative (Neg-Trace)
[2024-12-09 08:17] LABS: Basophils Percent Auto 0.3 % (0-2); Eosinophils Percent Auto 0.9 % (0-4); Hematocrit 35.7 % (42.0-52.0); Hemoglobin 11.8 g/dl (14.0-18.0); Imm Gran Abs Auto 0.02 X10*3/uL (0.00-0.03); Imm Gran Pct Auto 0.6 % (0.0-0.4); Lymphocytes Absolute Auto 0.6 X10*3/uL (1.2-4.9); Lymphocytes Percent Auto 17.7 % (20-40); Mean Corpuscular HGB Conc 33.1 g/dl (31.0-36.0); Mean Corpuscular Hemoglobin 30.9 pg (27.0-33.0); Mean Corpuscular Volume 93.5 fL (80.0-98.0); Mean Platelet Volume 10.7 fL (9.4-12.4); Monocytes Absolute Auto 0.6 X10*3/uL (0.1-1.2); Neutrophils Percent Auto 62.5 % (45-73); Platelet Count 182 X10*3/uL (160-400); Red Blood Count 3.82 X10*6/uL (4.60-5.80); Red Cell Distribution Width 16.8 % (11.0-16.0); White Blood Count 3.3 X10*3/uL (4.8-10.8)
[2024-12-09 08:38] LABS: Alanine Aminotransferase 22 U/L (0-40); Albumin Level 3.7 g/dL (3.5-5.0); Alkaline Phosphatase 101 U/L (39-117); Anion Gap 11 (12-20); Aspartate Amino Transferase 28 U/L (5-37); Bilirubin Total 0.2 mg/dL (0.0-1.0); Blood Urea Nitrogen 5 mg/dL (9-16); Calcium 8.5 mg/dL (8.4-10.2); Carbon Dioxide 27 mmol/L (22-29); Chloride 105 mmol/L (96-108); Estimated Glomerular Filt Rate > 60; Glucose Random 113 mg/dL (60-115); Potassium 3.7 mmol/L (3.3-5.1); Sodium 139 mmol/L (135-145); Total Protein 6.6 g/dL (6.5-8.0)
== END 2024-12-09 07:23 | disposition home or self-care (01) ==
LOC: HO.LAB 07:22
PROVIDERS: PCP Internal Medicine; Visit Provider Internal Medicine
DX: C20 Malignant neoplasm of rectum (principal)
CPT/HCPCS: 36415; 80053; 81003; 85025

== ENCOUNTER 2025-01-06 07:18 | Outpatient (REF) | payer OTHER, SELFPAY ==
--- OUTSIDE RECORDS SUMMARY | 2025-01-06 07:21 | XMS_ITS ---
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 Past Plans ONCOLOGY INFUSION THERAPY Plan Name Start Date Discontinue Date Treatment Medications Discontinue Reason Plan Provider [facility] OP IV FLUIDS (HYDRATION) 06/07/2023 01/18/2024 sodium chloride 0.9% bolus (NS) Therapy Complete Quynh Dotson MD Radiation Treatments * No radiation treatments are documented for this patient in [facility]. Treatments may have been administered in another system.
--- OUTSIDE RECORDS SUMMARY | 2025-01-06 07:21 | XMS_ITS | Clinical Summary ---
Author Organization [facility] Address [address] [place] [address] Care Team Providers Care Program Advisor Name Role Phone Denis Issa MD Primary Care Provider Unavail able Allergies Active Allergy Reactions Criticality Noted Date Comments Bee Sting 05/21/2023 Medications Medication Sig Dispensed Refills Start Date End Date Status docusate sodium (COLACE) 100 MG capsule TAKE 1 CAPSULE BY MOUTH TWICE A DAY NEEDED FOR ADJUNCT TO NARCOTIC ANALGESIA 0 05/05/2023 Active losartan (COZAAR) 100 MG tablet Take 1 tablet (100 mg total) by mouth daily. 0 04/20/2023 Active metoprolol succinate (TOPROL-XL) 24 hr tablet 100 mg Take 1 tablet (100 mg total) by mouth daily. 0 04/20/2023 Active diphenoxylate-atropi ne (LOMOTIL) 2.5-0.025 MG per tablet Take 1 tablet by mouth 4 (four) times a day as needed for diarrhea. 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 06/18/2023 High creatinine 06/18/2023 Rectal cancer 05/07/2023 Family History Medical History Relation Name Comments Cancer Brother testicular Cancer Maternal Aunt Cancer Maternal Grandmother cevical Cancer Paternal Grandmother uterine Relation Name Status Comments Brother Maternal Aunt Maternal Grandmother Paternal Grandmother Social History Tobacco Use Types Packs/Day Years Used Date Smoking Tobacco: Never Smokeless Tobacco: Never Alcohol Use Standard Drinks/Week Comments Yes 5 (1 standard drink = 0.6 oz pur e alcohol) Sex and Gender Information Value Date Recorded Sex Assigned at Male 05/07/2023 1:26 PM EDT Gender Identity Not on file Sexual Orientation Not on file Job Start Date Occupation Industry Not on file Not on file Not on file Last Filed Vital Signs Vital Sign Reading Time Taken Comments Blood Pressure 103/53 07/16/2023 1:38 PM EDT Pulse 60 07/16/2023 1:38 PM EDT Temperature 37 ??C (98.6 ??F) 07/16/2023 1:38 PM EDT Respiratory Rate - - Oxygen Saturation 99% 07/16/2023 1:38 PM EDT Inhaled Oxygen Concentration - - Weight 122.5 kg (270 lb) 07/16/2023 1:38 PM EDT Height 179.1 cm (5' 10.5 ) 07/02/2023 1:09 PM ED T Body Mass Index 38.19 07/02/2023 1:09 PM EDT Plan of Treatment Health Maintenance Due Date Last Done Comments Hepatitis B Vaccines (1 of 3 - 3-dose series) 1974 Hepatitis C Screening 1974 COVID-19 Vaccine (#1) 1979 Pneumococcal Vaccine (1 of 2 - PCV) 1980 Depression Screening 1986 BMI Counseling 1992 Preventative Health Evaluation 1992 DTap / Tdap / Td (1 - Tdap) 1993 Shingrix-Zoster Vaccine (1 of 2) 1993 Colon Cancer Screening (Colonoscopy) 2019 Influenza Vaccine (#1) 2024 RSV Ped < 20 months Aged Out No longe r eligible based on patient's age to complete this topic Care Teams Program Advisor Relationship Specialty Start Date End Date Denis Issa MD PCP - General Internal Medicine 05/07/23
--- OUTSIDE RECORDS SUMMARY | 2025-01-06 07:21 | XMS_ITS | Clinical Summary ---
Author Organization [facility] [place] [address] Care Team Providers Care Automotive Accessory Installer Name Role Phone Denis Issa MD Primary Care Provider [phone] Surgical History Surgery Date Site/Laterality Comments VARICOCELECTOMY PROCEDURE:VARICOCELE EXCISION Medical History Medical History Date Comments Hypertension DX:Hypertension Enlarged aorta (CMS/HCC) DX:Enla rged aorta (HCC) Family History Medical History Relation Name Comments Cancer Brother testicular Cancer Maternal Grandmother cevical Cancer Mother's Sister Cancer Paternal Grandmother uterine Relation Name Status Comments Brother Maternal Grandmother Mother's Sister Paternal Grandmother Social History Tobacco Use Types Packs/Day Years Used Date Smoking Tobacco: Never Smokeless Tobacco: Never Alcohol Use Standard Drinks/Week Comments Yes 5 (1 standard drink = 0.6 oz pur e alcohol) Sex and Gender Information Value Date Recorded Sex Assigned at Not on file Legal Sex Male 10:56 PM EST Gender Identity Not on file Sexual Orientation Not on file Obstetrics History Last Filed Vital Signs Vital Sign Reading Time Taken Comments Blood Pressure 104/65 08/20/2023 8:33 AM EDT Pulse 64 08/20/2023 8:33 AM EDT Temperature - - Respiratory Rate - - Oxygen Saturation - - Inhaled Oxygen Concentration - - Weight 125 kg (275 lb 8 oz) 08/20/2023 8:33 AM E DT Height 180.3 cm (5' 11 ) 08/20/2023 8:33 AM EDT Body Mass Index 38.42 08/20/2023 8:33 AM EDT Plan of Treatment Health Maintenance Due Date Last Done Comments COVID-19 Vaccine (#1) 1979 DTaP,Tdap,and Td Vaccines (1 - Tdap) 1993 Hepatitis B Vaccines (1 of 3 - 19+ 3-dose series) 1993 Pneumococcal Vaccine: 50+ Ye ars (1 of 2 - PCV) 1993 Pneumococcal Vaccine: Pediat rics (0 to 5 Years) and At-Risk Patients (6 to 64 Years) (1 of 2 - PCV) 1993 Zoster Vaccines (1 of 2) 1993 Cholesterol Screening (Lipid Panel) 10/18/2022 Colorectal Cancer Screening: Colonoscopy 10/18/2022 Depression Screening 10/18/2022 HIV Screening 10/18/2022 Hepatitis C Screening 10/18/2022 Social Influencers of Health Screening 10/18/2022 Influenza Vaccine (#1) 2024 HIB Vaccines Aged Out No longer eligi ble based on patient's age to complete this topic HPV Vaccines Aged Out No longer eligi ble based on patient's age to complete this topic Hepatitis A Vaccines Aged Out No long er eligible based on patient's age to complete this topic IPV Vaccines Aged Out No longer eligi ble based on patient's age to complete this topic MMR Vaccines Aged Out No longer eligi ble based on patient's age to complete this topic Meningococcal ACWY Vaccine Aged Out N o longer eligible based on patient's age to complete this topic Meningococcal B Vacine Aged Out No lo nger eligible based on patient's age to complete this topic RSV Immunization Patients Un iban 20 months Aged Out No longer eligible b ased on patient's age to complete this topic Varicella Vaccines Aged Out No longer eligible based on patient's age to complete this topic Care Teams Automotive Accessory Installer Relationship Specialty Start Date End Date Denis Issa MD PCP - General Internal Medicine 04/03/21
[2025-01-06 08:09] LABS: Basophils Percent Auto 0.5 % (0-2); Eosinophils Absolute Auto 0.1 X10*3/uL (0.0-0.4); Eosinophils Percent Auto 2.6 % (0-4); Hematocrit 37.7 % (42.0-52.0); Hemoglobin 12.5 g/dl (14.0-18.0); Lymphocytes Absolute Auto 0.3 X10*3/uL (1.2-4.9); Lymphocytes Percent Auto 14.9 % (20-40); MANUAL DIFF FLAG SCAN; Mean Corpuscular HGB Conc 33.2 g/dl (31.0-36.0); Mean Corpuscular Hemoglobin 30.6 pg (27.0-33.0); Mean Corpuscular Volume 92.4 fL (80.0-98.0); Mean Platelet Volume 9.7 fL (9.4-12.4); Monocytes Absolute Auto 0.3 X10*3/uL (0.1-1.2); Monocytes Percent Auto 15.9 % (2-11); Neutrophils Absolute Auto 1.3 x10*3/uL (2.0-8.3); Neutrophils Percent Auto 66.1 % (45-73); Platelet Count 139 X10*3/uL (160-400); Red Blood Count 4.08 X10*6/uL (4.60-5.80); Red Cell Distribution Width 17.1 % (11.0-16.0); SCAN SMEAR FLAG 1
[2025-01-06 09:03] LABS: SLIDE REVIEW VERIFIED
[2025-01-06 09:14] LABS: Alanine Aminotransferase 22 U/L (0-40); Albumin Level 3.7 g/dL (3.5-5.0); Alkaline Phosphatase 100 U/L (39-117); Anion Gap 13 (12-20); Aspartate Amino Transferase 28 U/L (5-37); Bilirubin Total 0.4 mg/dL (0.0-1.0); Blood Urea Nitrogen 5 mg/dL (9-16); Calcium 8.9 mg/dL (8.4-10.2); Carbon Dioxide 25 mmol/L (22-29); Chloride 104 mmol/L (96-108); Estimated Glomerular Filt Rate > 60; Glucose Random 115 mg/dL (60-115); Potassium 3.4 mmol/L (3.3-5.1); Sodium 139 mmol/L (135-145); Total Protein 6.9 g/dL (6.5-8.0)
[2025-01-06 09:23] LABS: Appearance Urine Clear; Color Urine Yellow; Glucose Urine UA Negative (Negative); Leukocyte Esterase Urine Negative (Negative); Nitrite Urine Negative (Negative); PH 5.5 (5.0-9.0); Specific Gravity - Urine 1.015 (1.005-1.025); UMIC TRIGGER UA YES; Urine Blood Negative (Negative); Urine Ketones Negative (Negative); Urine Protein 30 (1+) mg/dL (Neg-Trace)
[2025-01-06 09:30] LABS: Bacteria Urine None Seen (None Seen); Hyaline Casts Urine 0-2 /LPF (0-2); RBC Urine 0-2 /HPF (0-2); WBC Urine 0-5 /HPF (0-5)
== END 2025-01-06 07:19 | disposition home or self-care (01) ==
LOC: HO.LAB 07:18
PROVIDERS: PCP Internal Medicine; Visit Provider Internal Medicine
DX: C20 Malignant neoplasm of rectum (principal)
CPT/HCPCS: 36415; 80053; 81001; 85025

== ENCOUNTER 2025-01-20 07:12 | Outpatient (REF) | payer OTHER, SELFPAY ==
[2025-01-20 07:48] LABS: MANUAL DIFF FLAG NO
[2025-01-20 08:29] LABS: Basophils Percent Auto 0.7 % (0-2); Eosinophils Absolute Auto 0.1 X10*3/uL (0.0-0.4); Eosinophils Percent Auto 2.9 % (0-4); Hematocrit 35.8 % (42.0-52.0); Hemoglobin 11.8 g/dl (14.0-18.0); Imm Gran Abs Auto 0.01 X10*3/uL (0.00-0.03); Imm Gran Pct Auto 0.4 % (0.0-0.4); Lymphocytes Absolute Auto 0.4 X10*3/uL (1.2-4.9); Lymphocytes Percent Auto 14.6 % (20-40); Mean Corpuscular Hemoglobin 30.4 pg (27.0-33.0); Mean Corpuscular Volume 92.3 fL (80.0-98.0); Mean Platelet Volume 9.9 fL (9.4-12.4); Monocytes Absolute Auto 0.5 X10*3/uL (0.1-1.2); Monocytes Percent Auto 19.7 % (2-11); Neutrophils Absolute Auto 1.7 x10*3/uL (2.0-8.3); Neutrophils Percent Auto 61.7 % (45-73); Platelet Count 133 X10*3/uL (160-400); Red Blood Count 3.88 X10*6/uL (4.60-5.80); Red Cell Distribution Width 17.9 % (11.0-16.0); White Blood Count 2.7 X10*3/uL (4.8-10.8)
[2025-01-20 08:41] LABS: Appearance Urine Clear; Color Urine Yellow; Glucose Urine UA Negative (Negative); Leukocyte Esterase Urine Negative (Negative); Nitrite Urine Negative (Negative); PH 5.5 (5.0-9.0); Specific Gravity - Urine 1.015 (1.005-1.025); UMIC TRIGGER UA YES; Urine Blood Negative (Negative); Urine Ketones Trace mg/dL (Negative); Urine Protein 30 (1+) mg/dL (Neg-Trace)
[2025-01-20 08:46] LABS: Bacteria Urine None Seen (None Seen); Hyaline Casts Urine 0-2 /LPF (0-2); RBC Urine 0-2 /HPF (0-2); WBC Urine 0-5 /HPF (0-5)
[2025-01-20 09:07] LABS: Alanine Aminotransferase 23 U/L (0-40); Albumin Level 3.7 g/dL (3.5-5.0); Alkaline Phosphatase 112 U/L (39-117); Anion Gap 14 (12-20); Aspartate Amino Transferase 35 U/L (5-37); Bilirubin Total 0.5 mg/dL (0.0-1.0); Blood Urea Nitrogen 5 mg/dL (9-16); Calcium 8.8 mg/dL (8.4-10.2); Carbon Dioxide 25 mmol/L (22-29); Chloride 103 mmol/L (96-108); Estimated Glomerular Filt Rate > 60; Glucose Random 154 mg/dL (60-115); Potassium 3.8 mmol/L (3.3-5.1); Sodium 138 mmol/L (135-145); Total Protein 6.9 g/dL (6.5-8.0)
== END 2025-01-20 07:13 | disposition home or self-care (01) ==
LOC: HO.LAB 07:12
PROVIDERS: PCP Internal Medicine; Visit Provider Internal Medicine
DX: C20 Malignant neoplasm of rectum (principal)
CPT/HCPCS: 36415; 80053; 81001; 85025

== ENCOUNTER 2025-03-31 07:14 | Outpatient (REF) | payer OTHER, SELFPAY ==
--- OUTSIDE RECORDS SUMMARY | 2025-03-31 07:16 | XMS_ITS | Clinical Summary ---
Author Organization [facility] Address [address] [place] [address] Care Team Providers Care Commercial Roofing Estimator Name Role Phone Denis Issa MD Primary [...] age to complete this topic Care Teams Commercial Roofing Estimator Relationship Specialty Start Date End Date Denis Issa MD PCP - General Internal Medicine 05/07/23
--- OUTSIDE RECORDS SUMMARY | 2025-03-31 07:16 | XMS_ITS ---
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 Past Plans ONCOLOGY INFUSION THERAPY Plan Name Start Date Discontinue Date Treatment Medications Discontinue Reason Plan Provider [facility] OP IV FLUIDS (HYDRATION) 06/07/2023 01/18/2024 sodium chloride 0.9% bolus (NS) Therapy Complete Quynh Dotson MD Radiation Treatments * No radiation treatments are documented for this patient in [facility]. Treatments may have been administered in another system.
--- OUTSIDE RECORDS SUMMARY | 2025-03-31 07:16 | XMS_ITS | Clinical Summary ---
Author Organization [facility] [place] [address] Care Team Providers Care Developer Architect Name Role Phone Denis Issa MD Primary Care Provider [phone] Surgical History Surgery Date Site/Laterality Comments VARICOCELECTOMY PROCEDURE:VARICOCELE EXCISION Medical History Medical History Date Comments Hypertension DX:Hypertension Enlarged aorta (CMS/HCC V24) DX: Enlarged aorta (HCC) Family History Medical History Relation [...] Td Vaccines (1 - Tdap) 1993 Hepatitis A Vaccines (1 of 2 - Risk 2-dose series) 1993 Hepatitis B Vaccines (1 of 3 [...] Influencers of Health Screening 10/18/2022 Influenza Vaccine (Season Ended) 2025 HIB Vaccines Aged Out No longer eligi [...] age to complete this topic Meningococcal B Vaccine Aged Out No l onger eligible based on patient's age to complete this topic RSV Immunization Patients Un iban 20 months Aged Out No longer eligible b ased on patient's age to complete this topic Varicella Vaccines Aged Out No longer eligible based on patient's age to complete this topic Care Teams Developer Architect Relationship Specialty Start Date End Date Denis Issa MD PCP - General Internal Medicine 04/03/21
[2025-03-31 08:13] LABS: Appearance Urine Clear; Color Urine Yellow; Glucose Urine UA Negative (Negative); Leukocyte Esterase Urine Negative (Negative); Nitrite Urine Negative (Negative); PH 5.5 (5.0-9.0); Urine Blood Negative (Negative); Urine Ketones Trace mg/dL (Negative); Urine Protein Trace mg/dL (Neg-Trace)
[2025-03-31 08:17] LABS: Basophils Percent Auto 0.4 % (0-2); Eosinophils Percent Auto 1.6 % (0-4); Hematocrit 34.5 % (42.0-52.0); Hemoglobin 11.3 g/dl (14.0-18.0); Imm Gran Abs Auto 0.01 X10*3/uL (0.00-0.03); Imm Gran Pct Auto 0.4 % (0.0-0.4); Lymphocytes Absolute Auto 0.6 X10*3/uL (1.2-4.9); Lymphocytes Percent Auto 24.3 % (20-40); MANUAL DIFF FLAG SCAN; Mean Corpuscular HGB Conc 32.8 g/dl (31.0-36.0); Mean Corpuscular Hemoglobin 31.6 pg (27.0-33.0); Mean Corpuscular Volume 96.4 fL (80.0-98.0); Mean Platelet Volume 11.1 fL (9.4-12.4); Monocytes Absolute Auto 0.7 X10*3/uL (0.1-1.2); Monocytes Percent Auto 25.5 % (2-11); Neutrophils Absolute Auto 1.2 x10*3/uL (2.0-8.3); Neutrophils Percent Auto 47.8 % (45-73); Platelet Count 137 X10*3/uL (160-400); Red Blood Count 3.58 X10*6/uL (4.60-5.80); Red Cell Distribution Width 18.7 % (11.0-16.0); SCAN SMEAR FLAG 1; White Blood Count 2.6 X10*3/uL (4.8-10.8)
[2025-03-31 08:22] LABS: NRBC Pct Auto 1.2 /100WBC (0.0-0.2)
[2025-03-31 08:54] LABS: Alanine Aminotransferase 43 U/L (0-40); Albumin Level 3.9 g/dL (3.5-5.0); Alkaline Phosphatase 121 U/L (39-117); Anion Gap 17 (12-20); Aspartate Amino Transferase 45 U/L (5-37); Bilirubin Total 0.6 mg/dL (0.0-1.0); Blood Urea Nitrogen 6 mg/dL (9-16); Calcium 8.9 mg/dL (8.4-10.2); Carbon Dioxide 23 mmol/L (22-29); Chloride 104 mmol/L (96-108); Estimated Glomerular Filt Rate > 60; Glucose Random 120 mg/dL (60-115); Magnesium 1.7 mg/dL (1.6-2.6); Potassium 3.5 mmol/L (3.3-5.1); Sodium 140 mmol/L (135-145); Total Protein 6.6 g/dL (6.5-8.0)
[2025-03-31 08:57] LABS: SLIDE REVIEW VERIFIED
== END 2025-03-31 07:15 | disposition home or self-care (01) ==
LOC: HO.LAB 07:14
PROVIDERS: PCP Internal Medicine; Visit Provider Internal Medicine
DX: C20 Malignant neoplasm of rectum (principal)
CPT/HCPCS: 36415; 80053; 81003; 83735; 85025

== ENCOUNTER 2025-06-02 07:03 | Outpatient (REF) | payer OTHER, SELFPAY ==
--- OUTSIDE RECORDS SUMMARY | 2025-06-02 07:05 | XMS_ITS | Encounter Summary ---
Author Organization [facility] Address [address] [place] [id number] Phone Care Team Providers Care Microsoft Crm Developer Name Role Phone Denis Issa MD Primary Care Provider [phone] August Tolliver MD Unavailable [phone] Teri Nova MD Unavailable [phone] Willian Moss MD Unavailable [phone] Guerita Madrid MD Unavailable [phone] Quynh Chapman MD Unavailable [phone] Guerita Clayton MD Unavailable Conchita Almaraz MD Unavailable [phone] Encounter Details Date Type Department Care Team (Late st Contact Info) Description 05/17/2025 Documentation [facility] Blood Donor [facility] [address] [facility] 1st [place] [address] Palma Venegas PA-C [address] [facility] Transfusion Med, [facility] [place] [address] [email or web address] Social History Tobacco Use Types Packs/Day Years Used Date Smoking Tobacco: Some Days Cigars Passive Smoke Exposure: Past Smokeless Tobacco: Never Comments:Cigar on special oc casions Alcohol Use Standard Drinks/Week Comments Not Currently 2 (1 standard drink = 0.6 oz pur e alcohol) Child or Family Care Answer Date Record ed Do you have problems with on e of the following making it difficult for you to work, study, or receive health care? No 09/04/2023 Education Answer Date Recorded Are you interested in help w ith more adult education (for example, completing high school, GED, job training, learning the [place] language, technical skills, or developing parenting skills)? No 09/04/2023 Are you concerned about learning? Not on file 09/04/2023 No 09/04/2023 Yes 09/04/2023 Food Answer Date Recorded Within the past 6 months we worried whether our food would run out before we got money to buy more. Never True 02/16/2024 Within the past 6 months the food we bought just didn't last and we didn't have enough money to get more. Never True Residential Stability Answer Date Recor ded What is your housing situation today? I have [facility] 02/16/2024 How many times have you move d in the past 12 months? Zero (I did not move) 02/16/2024 Paying for Meds Answer Date Recorded Do you have trouble paying for medicines? No 02/16/2024 Paying Utility Bills Answer Date Record ed Do you have trouble paying your heating or elect ricity bill? No 02/16/2024 Transportation Answer Date Recorded Has the lack of transportati on kept you from medical appointments or from getting medications? No 02/16/2024 Digital Access Answer Date Recorded No 02/16/2024 Yes 02/16/2024 Do you have reliable internet access at home? Ye s 02/16/2024 Do you have a device (e.g., phone, tablet, computer) with a working camera? Yes 02/16/2024 Intimate Partner Violence Answer Date R ecorded Are you denied basic needs s uch as food, clothing, or medical care? No 10/17/2024 In the past 12 months have y ou been in a relationship with a person who hurts, threatens, or tries to control you? No 10/17/2024 Are you denied basic needs s uch as food, clothing, or medical care? No 10/17/2024 In the past 12 months have y ou been in a relationship with a person who hurts, threatens, or tries to control you? No 10/17/2024 Sex and Gender Information Value Date Recorded Sex Assigned at Male 08/05/2023 1:17 PM EDT Legal Sex Male 9:29 PM EDT Gender Identity Male 08/05/2023 1:17 PM EDT Sexual Orientation Straight 08/05/2023 1: 17 PM EDT documented as of this encounter Progress Notes * Palma Venegas PA-C - 05/17/2025 8:58 AM EDT Apheresis Collection Suitability Name: ?Mitch Barton MRN: ?[id number] Indication: ?[facility] research [id number] iso rectal adenocarcinoma Tentative Collection Date: ?05/21/25 Date of mobilization: N/A Has the donor been tested for evidence of communicable infectious diseases in accordance with FDA/AABB guidelines: ?yes ?If female, is the donor surgically sterile? N/A If yes, explain: If female, is the donor older than 54? N/A If female, is the donor post menopausal? N/A HCG: N/A ? Relevant Past Medical History: ?Cardiac (Atrial fibrillation or flutter, sick sinus syndrome, or ventricular arrhythmias, CAD/AZ, CHF, HTN, heart valve disease, diastolic dysfunction, peripheral edema). None Endocrine (NIDDM/IDDM, thyroid disease, Adrenal disorders, ???). None Heme (Coagulopathy, Anemia, Hemoglobinopathies, ITP/TTP,???). ? None Neuro (Cerebrovascular disease-TIA/CVA, Seizure disorders, Migraine headaches). None Psychiatric disorders (Mood disorders, Substance Abuse/Dependence???). None Pulmonary (Asthma, COPD, Pulmonary Embolism, Interstitial lung disease, Pleural/Mediastinal disorders, Tumor). Hx of PE (10/2024), on apixaban ?I, the Transfusion Medicine PA, have deemed the above donor to be medically suitable for [facility] research collection. The information above was collected from a review of patient records. Palma Venegas PA-C Transfusion Medicine PA [facility] Transfusion Medicine Pager: [phone] documented in this encounter Plan of Treatment Upcoming Encounters Date Type Department Care Team (Late st Contact Info) Description 05/21/2025 Procedure Pass [facility] Imaging Department, [facility] [place] [address] [facility], [address] [place] [address] 05/21/2025 Procedure Pass [facility] Imaging Department, [facility] [place] [address] [facility], [address] [place] [address] 07/18/2025 1:40 PM EDT Appointment [facility] Imaging Department, [facility] [place] [address] [facility], [address] [place] [address] Cristian Black MD [address] [place] [phone] [email or web address] 07/18/2025 3:00 PM EDT Office Visit [facility], [address], 10th [place] [address] Cristian Black MD [address] [place] [phone] [email or web address] [email or web address] documented as of this encounter Visit Diagnoses Not on filedocumented in this encounter Care Teams Microsoft Crm Developer Relationship Specialty Start Date End Date Denis Issa MD [address] [facility] [address] [place] [address] PCP - General Internal Medicine 08/05/23 August Tolliver MD [address] [facility] [address] [place] [address] General Surgery 08/05/23 Teri Nova MD [address] [place] [phone] [email or web address] 08/27/23 Willian Moss MD [address] [place] [phone] [email or web address] 10/13/23 Guerita Madrid MD [address] [place] [address] [place] [address] [email or web address] 10/13/23 Quynh Chapman MD [address] [place] [phone] [email or web address] 10/13/23 Guerita Clayton MD [address] [place] [address] [email or web address] 10/13/23 Conchita Almaraz MD [address] [place] [phone] [email or web address] Internal Medicine 10/13/23 documented as of this encounter Additional Source Comments The information contained in this document represents components of the legal health record. It is not the complete legal health record.[facility]
[2025-06-02 08:27] LABS: Hematocrit 36.7 % (42.0-52.0); Hemoglobin 12.5 g/dl (14.0-18.0); Imm Gran Abs Auto 0.01 X10*3/uL (0.00-0.03); Imm Gran Pct Auto 0.5 % (0.0-0.4); Lymphocytes Absolute Auto 0.5 X10*3/uL (1.2-4.9); MANUAL DIFF FLAG SCAN; Mean Corpuscular HGB Conc 34.1 g/dl (31.0-36.0); Mean Corpuscular Hemoglobin 33.7 pg (27.0-33.0); Mean Corpuscular Volume 98.9 fL (80.0-98.0); NRBC Abs Auto 0.020 X10*3/uL (0.0-0.012); NRBC Pct Auto 0.9 /100WBC (0.0-0.2); Platelet Count 149 X10*3/uL (160-400); Red Blood Count 3.71 X10*6/uL (4.60-5.80); SCAN SMEAR FLAG 1
[2025-06-02 08:32] LABS: White Blood Count 2.2 X10*3/uL (4.8-10.8)
[2025-06-02 08:38] LABS: Appearance Urine Clear; Glucose Urine UA Negative (Negative); PH 5.5 (5.0-9.0); Specific Gravity - Urine 1.015 (1.005-1.025)
[2025-06-02 09:12] LABS: Alanine Aminotransferase 120 U/L (0-40); Albumin Level 4.0 g/dL (3.5-5.0); Alkaline Phosphatase 144 U/L (39-117); Anion Gap 15 (12-20); Aspartate Amino Transferase 84 U/L (5-37); Blood Urea Nitrogen 5 mg/dL (9-16); Calcium 8.7 mg/dL (8.4-10.2); Carbon Dioxide 27 mmol/L (22-29); Chloride 101 mmol/L (96-108); Estimated Glomerular Filt Rate > 60; Magnesium 1.6 mg/dL (1.6-2.6); Potassium 3.0 mmol/L (3.3-5.1); Sodium 140 mmol/L (135-145); Total Protein 6.7 g/dL (6.5-8.0)
== END 2025-06-02 07:04 | disposition home or self-care (01) ==
LOC: HO.LAB 07:03
PROVIDERS: Nurse Practitioner Family; PCP Internal Medicine; Visit Provider Internal Medicine
DX: C20 Malignant neoplasm of rectum (principal)
CPT/HCPCS: 36415; 80053; 81003; 83735; 85025

== ENCOUNTER 2025-06-16 07:50 | Outpatient (REF) | payer OTHER, SELFPAY ==
[2025-06-16 08:36] LABS: Hematocrit 35.0 % (42.0-52.0); Hemoglobin 12.0 g/dl (14.0-18.0); Imm Gran Abs Auto 0.01 X10*3/uL (0.00-0.03); Imm Gran Pct Auto 0.4 % (0.0-0.4); Lymphocytes Absolute Auto 0.5 X10*3/uL (1.2-4.9); MANUAL DIFF FLAG SCAN; Mean Corpuscular HGB Conc 34.3 g/dl (31.0-36.0); Mean Corpuscular Hemoglobin 33.7 pg (27.0-33.0); Mean Corpuscular Volume 98.3 fL (80.0-98.0); NRBC Abs Auto 0.020 X10*3/uL (0.0-0.012); NRBC Pct Auto 0.9 /100WBC (0.0-0.2); Platelet Count 131 X10*3/uL (160-400); Red Blood Count 3.56 X10*6/uL (4.60-5.80); SCAN SMEAR FLAG 1
[2025-06-16 08:37] LABS: White Blood Count 2.3 X10*3/uL (4.8-10.8)
[2025-06-16 08:53] LABS: Appearance Urine Clear; Glucose Urine UA Negative (Negative); PH 6.0 (5.0-9.0); Specific Gravity - Urine <= 1.005 (1.005-1.025)
[2025-06-16 09:08] LABS: Alanine Aminotransferase 55 U/L (0-40); Albumin Level 3.7 g/dL (3.5-5.0); Alkaline Phosphatase 144 U/L (39-117); Anion Gap 16 (12-20); Aspartate Amino Transferase 58 U/L (5-37); Blood Urea Nitrogen < 3 mg/dL (9-16); Calcium 8.6 mg/dL (8.4-10.2); Carbon Dioxide 26 mmol/L (22-29); Chloride 102 mmol/L (96-108); Estimated Glomerular Filt Rate > 60; Magnesium 1.7 mg/dL (1.6-2.6); Potassium 3.6 mmol/L (3.3-5.1); Sodium 140 mmol/L (135-145); Total Protein 6.4 g/dL (6.5-8.0)
== END 2025-06-16 07:51 | disposition home or self-care (01) ==
LOC: HO.LAB 07:50
PROVIDERS: PCP Internal Medicine; Visit Provider Internal Medicine
DX: C20 Malignant neoplasm of rectum (principal)
CPT/HCPCS: 36415; 80053; 81003; 83735; 85025

== ENCOUNTER 2025-06-30 07:14 | Outpatient (REF) | payer OTHER, SELFPAY ==
[2025-06-30 07:32] LABS: MANUAL DIFF FLAG NO
[2025-06-30 07:50] LABS: Hematocrit 36.1 % (42.0-52.0); Hemoglobin 12.4 g/dl (14.0-18.0); Imm Gran Abs Auto 0.01 X10*3/uL (0.00-0.03); Imm Gran Pct Auto 0.3 % (0.0-0.4); Lymphocytes Absolute Auto 0.5 X10*3/uL (1.2-4.9); Mean Corpuscular HGB Conc 34.3 g/dl (31.0-36.0); Mean Corpuscular Hemoglobin 33.5 pg (27.0-33.0); Mean Corpuscular Volume 97.6 fL (80.0-98.0); NRBC Abs Auto 0.030 X10*3/uL (0.0-0.012); NRBC Pct Auto 0.9 /100WBC (0.0-0.2); Platelet Count 113 X10*3/uL (160-400); Red Blood Count 3.70 X10*6/uL (4.60-5.80); White Blood Count 3.4 X10*3/uL (4.8-10.8)
[2025-06-30 07:55] LABS: Appearance Urine Clear; Glucose Urine UA Negative (Negative); PH 6.0 (5.0-9.0); Specific Gravity - Urine <= 1.005 (1.005-1.025)
[2025-06-30 08:35] LABS: Alanine Aminotransferase 65 U/L (0-40); Albumin Level 4.0 g/dL (3.5-5.0); Alkaline Phosphatase 149 U/L (39-117); Anion Gap 20 (12-20); Aspartate Amino Transferase 69 U/L (5-37); Blood Urea Nitrogen 3 mg/dL (9-16); Calcium 8.9 mg/dL (8.4-10.2); Carbon Dioxide 28 mmol/L (22-29); Chloride 96 mmol/L (96-108); Estimated Glomerular Filt Rate > 60; Potassium 3.6 mmol/L (3.3-5.1); Sodium 140 mmol/L (135-145); Total Protein 6.5 g/dL (6.5-8.0)
[2025-06-30 08:44] LABS: Magnesium 1.5 mg/dL (1.6-2.6)
== END 2025-06-30 07:15 | disposition home or self-care (01) ==
LOC: HO.LAB 07:14
PROVIDERS: PCP Internal Medicine; Visit Provider Internal Medicine
DX: C20 Malignant neoplasm of rectum (principal)
CPT/HCPCS: 36415; 80053; 81003; 83735; 85025

== ENCOUNTER 2025-07-14 07:22 | Outpatient (REF) | payer OTHER, SELFPAY ==
--- OUTSIDE RECORDS SUMMARY | 2025-07-14 07:24 | XMS_ITS | Encounter Summary ---
Author Organization [facility] Address [address] [address] Phone Care Team Providers Care Replacer Name Role Phone Denis Issa MD Primary Care Provider [phone] August Tolliver MD Unavailable Teri Nova MD Unavailable [phone] Willian Moss MD Unavailable Guerita Madrid MD Unavailable Quynh Chapman MD Unavailable [phone] Guerita Clayton MD Unavailable [phone] Conchita Almaraz MD Unavailable [phone] Encounter Details Date Type Department Care Team (Late st Contact Info) Description 02/16/2025 Procedure Pass [facility] Imaging [facility], [facility] [place], MRI [address] [address] Social History Tobacco Use Types Packs/Day Years [...] high school, GED, job training, learning the Finnish language, technical skills, or developing parenting skills)? [...] PM EDT documented as of this encounter Plan of Treatment Upcoming Encounters Date Type Department Care Team (Late st Contact Info) Description 05/21/2025 Procedure Pass [facility] Imaging Department, [facility], [place] 450 [facility], Floor L1 [place] [address] 05/21/2025 Procedure Pass [facility] Imaging Department, [facility] [place] 450 [facility], Floor [address]1 [place] [address] 07/31/2025 7:40 AM EDT Appointment [facility] Imaging Department, [facility], [place] 450 [facility], Floor L1 [place] [address] Cristian Black MD [address] [place] [address] Geoff contreras@[facility] 07/31/2025 12:00 PM EDT Office Visit [facility], [address], 10th [place] [address] Cristian Black MD [address] [place] [address] Geoff contreras@[facility] documented as of this encounter Visit Diagnoses Not on filedocumented in this encounter Care Teams Replacer Relationship Specialty Start Date End Date Denis Issa MD 222 [facility] 301 [place] [address] PCP - General Internal Medicine 08/05/23 August Tolliver MD 175 [facility] 110 [place] [address] General Surgery 08/05/23 Teri Nova MD [address] [place] [address] Jocelyn@[facility] Medical Oncology 08/27/23 Willian Moss MD [address] [place] [address] honey@[email or web address] Surgical Oncology 10/13/23 Guerita Madrid MD [address] [place] [address] [place] [address] [email or web address] Gastrointestinal Surgery 10/13/23 Quynh Chapman MD [address] [place] [phone] Landy@ [facility] Internal Medicine 10/13/23 Guerita Clayton MD [address] [place] [address] [email or web address] Radiation Oncology 10/13/23 Conchita Almaraz MD [address] [place] [address] [email or web address] Internal Medicine 10/13/23 documented as of this encounter Additional Source Comments The information contained in this document represents components of the legal health record. It is not the complete legal health record.[facility]
--- OUTSIDE RECORDS SUMMARY | 2025-07-14 07:24 | XMS_ITS | Encounter Summary ---
Author Organization [facility] Address 399 [facility] [address] [place] [address] Phone Care Team Providers Care Supervisor Meter Shop Name Role Phone Denis Issa MD Primary Care Provider [phone] August Tolliver MD Unavailable [phone] Teri Nova MD Unavailable Willian Moss MD Unavailable [phone] Guerita Madrid MD Unavailable [phone] Quynh Chapman MD Unavailable [phone] Guerita Clayton MD Unavailable [phone] Conchita Almaraz MD Unavailable [phone] Encounter Details Date Type Department Care Team (Late st Contact Info) Description 03/23/2024 Procedure Pass [facility] Radiology [address] [place] [address] Social History Tobacco Use Types Packs/Day Years [...] high school, GED, job training, learning the Puerto Rican language, technical skills, or developing parenting skills)? [...] computer) with a working camera? Yes 02/16/2024 Sex and Gender Information Value Date Recorded Sex Assigned at Male 08/05/2023 1:17 PM EDT Legal Sex Male 9:29 PM EDT Gender Identity Male 08/05/2023 1:17 PM EDT Sexual Orientation Straight 08/05/2023 1: 17 PM EDT documented as of this encounter Plan of Treatment Upcoming Encounters Date Type Department Care Team (Late st Contact Info) Description 05/21/2025 [facility], [facility] [place] 450 [facility], Floor L1 [place] [address] 05/21/2025 Procedure Pass [facility] Imaging Department, [facility] [place] 450 [facility], Floor L1 [place] [address] 07/31/2025 7:40 AM EDT Appointment [facility] Imaging [facility], [facility], [place] 450 [facility], Floor L1 [place] [address] Cristian Black MD 450 [place] [address] Geoff contreras@[facility] 07/31/2025 12:00 PM EDT Office Visit [facility], [address], 10th [place] [address] Cristian Black MD 450 [place] [address] Geoff contreras@[facility] documented as of this encounter Visit Diagnoses Not on filedocumented in this encounter Care Teams Supervisor Meter Shop Relationship Specialty Start Date End Date Denis Issa MD 222 [facility] 301 [place] [address] PCP - General Internal Medicine 08/05/23 August Tolliver MD 175 [facility] 110 [place] [address] General Surgery 08/05/23 Teri Nova MD [address] [place] [address] Jocelyn@[email or web address] Medical Oncology 08/27/23 Willian Moss MD [address] [place] [address] [email or web address]@[email or web address] Surgical Oncology 10/13/23 Guerita Madrid MD 45 [facility] 3rd [place] [address] [email or web address] Gastrointestinal Surgery 10/13/23 Quynh Chapman MD 271 [place] [phone] Landy@ [facility] Internal Medicine 10/13/23 Guerita Clayton MD 271 [place] [address] [email or web address] Radiation Oncology 10/13/23 Conchita Almaraz MD [address] [place] [address] [email or web address] Internal Medicine 10/13/23 documented as of this encounter Additional Source Comments The information contained in this document represents components of the legal health record. It is not the complete legal health record.[facility]
--- OUTSIDE RECORDS SUMMARY | 2025-07-14 07:24 | XMS_ITS | Encounter Summary ---
Author Organization [facility] Address 399 [facility] [address] [place] [address] Phone Care Team Providers Care Web Solutions Architect Name Role Phone Denis Issa MD Primary Care Provider [phone] August Tolliver MD Unavailable [phone] Teri Nova MD Unavailable [phone] Willian Moss MD Unavailable [phone] Guerita Madrid MD Unavailable [phone] Quynh Chapman MD Unavailable [phone] Guerita Clayton MD Unavailable Conchita Almaraz MD Unavailable [phone] Encounter Details Date Type Department Care Team (Late st Contact Info) Description 06/21/2024 Procedure Pass [facility] Radiology [address] [place] [address] Social History Tobacco Use Types Packs/Day Years [...] high school, GED, job training, learning the Cuban language, technical skills, or developing parenting skills)? [...] st Contact Info) Description 05/21/2025 [facility], [facility] [place] [place] 450 [facility], Floor L1 [place] [address] 05/21/2025 Procedure Pass [facility] Imaging Department, [facility] [place] [place] 450 [facility], Floor L1 [place] [address] 07/31/2025 7:40 AM EDT Appointment [facility] Imaging Department, [facility], [place] 450 [facility], Floor L1 [place] [address] Cristian Black MD 450 [place] [address] Geoff contreras@[facility] 07/31/2025 12:00 PM EDT Office Visit [facility], [address], 10th [place] [address] Cristian Black MD 450 [place] [address] Geoff contreras@[facility] documented as of this encounter Visit Diagnoses Not on filedocumented in this encounter Care Teams Web Solutions Architect Relationship Specialty Start Date End Date Denis Issa MD 222 [facility] 301 [place] [address] PCP - General Internal Medicine 08/05/23 August Tolliver MD 175 [facility] 110 [place] [address] General Surgery 08/05/23 Teri Nova MD [address] [place] [address] Jocelyn@[facility] Medical Oncology 08/27/23 Willian Moss MD [address] [place] [address] [email or web address]@[email or web address] Surgical Oncology 10/13/23 Guerita Madrid MD [address] [facility] 3rd [place] [address] [email or web address] Gastrointestinal Surgery 10/13/23 Quynh Chapman MD 271 [place] [address] Landy@ [facility] Internal Medicine 10/13/23 Guerita Clayton MD 271 [place] [address] [email or web address] Radiation Oncology 10/13/23 Conchita Almaraz MD [address] [place] [address] [email or web address] Internal Medicine 10/13/23 documented as of this encounter Additional Source Comments The information contained in this document represents components of the legal health record. It is not the complete legal health record.[facility]
--- OUTSIDE RECORDS SUMMARY | 2025-07-14 07:24 | XMS_ITS | Encounter Summary ---
Author Organization [facility] Address 399 [facility] [address] [place] [address] Phone Care Team Providers Care Locomotive Repairer Diesel Name Role Phone Denis Issa MD Primary Care Provider [phone] August Tolliver MD Unavailable [phone] Teri Nova MD Unavailable [phone] Willian Moss MD Unavailable [phone] Guerita Madrid MD Unavailable [phone] Quynh Chapman MD Unavailable [phone] Guerita Clayton MD Unavailable [phone] Conchita Almaraz MD Unavailable [phone] Encounter Details Date Type Department Care Team (Late st Contact Info) Description 03/23/2024 Procedure Pass [facility] MR Imaging, [place] [address] [place] [address] Social History Tobacco Use Types Packs/Day Years [...] high school, GED, job training, learning the Zambian language, technical skills, or developing parenting skills)? [...] st Contact Info) Description 05/21/2025 Procedure Pass [facility] Imaging Department, [facility] [place] 450 [facility], Floor L1 [place] [address] 05/21/2025 Procedure Pass [facility] Imaging Department, [facility] [place] [place] 450 [facility], Floor L1 [place] [address] 07/31/2025 7:40 AM EDT Appointment [facility] Imaging Department, [facility], [place] 450 [facility], Floor L1 [place] [address] Cristian Black MD 450 [place] [address] Geoff contreras@[facility] 07/31/2025 12:00 PM EDT Office Visit [facility], [facility] 450 [facility], 10th [place] [address] Cristian Black MD 450 [place] [address] Geoff contreras@[facility] documented as of this encounter Visit Diagnoses Not on filedocumented in this encounter Care Teams Locomotive Repairer Diesel Relationship Specialty Start Date End Date Denis Issa MD [address] [facility] 301 [place] [address] PCP - General Internal Medicine 08/05/23 August Tolliver MD 175 [facility] 110 [place] [address] General Surgery 08/05/23 Teri Nova MD [address] [place] [address] Jocelyn@[email or web address] Medical Oncology 08/27/23 Willian Moss MD [address] [place] [address] [email or web address]@[facility] Surgical Oncology 10/13/23 Guerita Madrid MD 45 [facility] 3rd [place] [address] [email or web address] Gastrointestinal Surgery 10/13/23 Quynh Chapman MD 271 [place] [address] Landy@ [facility] Internal Medicine 10/13/23 Guerita Clayton MD 271 [place] [address] [email or web address] Radiation Oncology 10/13/23 Conchita Almaraz MD [address] [place] [address] [email or web address] Internal Medicine 10/13/23 documented as of this encounter Additional Source Comments The information contained in this document represents components of the legal health record. It is not the complete legal health record.[facility]
--- OUTSIDE RECORDS SUMMARY | 2025-07-14 07:24 | XMS_ITS | Encounter Summary ---
Author Organization [facility] Address 399 [facility] [address] [place] [address] Phone Care Team Providers Care Pompom Maker Name Role Phone Denis Issa MD Primary Care Provider [phone] August Tolliver MD Unavailable Teri Nova MD Unavailable [phone] Willian Moss MD Unavailable [phone] Guerita Madrid MD Unavailable [phone] Quynh Chapman MD Unavailable [phone] Guerita Clayton MD Unavailable [phone] Conchita Almaraz MD Unavailable [phone] Encounter Details Date Type Department Care Team (Late st Contact Info) Description 05/25/[address] [facility] Periop [address] [place] [address] Social History Tobacco Use Types Packs/Day Years [...] high school, GED, job training, learning the Welsh language, technical skills, or developing parenting skills)? [...] PM EDT documented as of this encounter Functional Status * Calculated C-SSRS Risk Score (Lifetime/Recent) Answer Date of Assessment Author No Risk Indicated 05/25/2024 1:00 PM EDT Adri Alicea RN * [place] Suicide Severity Rating Scale (Screener/Recent Self-Report) Question Answer Date of Assessment Author 1. Wish to be (Past 1 Month) No 05/25/2024 1:00 PM EDT Adri Alicea RN 2. Non-Specific Active Suicidal Thoughts (Past 1 Month) No 05/25/2024 1:00 PM EDT Adri Alicea RN 6. Suicidal Behavior (Lifetime) No 05/25/2024 1:00 PM EDT Adri Alicea RN documented as of this encounter Plan of Treatment Upcoming Encounters Date Type Department Care Team (Late st Contact Info) Description 05/21/2025 Procedure Pass [facility] Imaging Department, [facility] [place] 450 [facility], Floor L1 [place] [address] 05/21/2025 Procedure Pass [facility] Imaging Department, [facility] [place] 450 [facility], Floor L1 [place] [address] 07/31/2025 7:40 AM EDT Appointment [facility] Imaging Department, [facility], [place] 450 [facility], Floor L1 [place] [address] Cristian Black MD [address] [place] [address] Geoff contreras@[email or web address] 07/31/2025 12:00 PM EDT Office Visit [facility], [address], 10th [place] [address] Cristian Black MD [address] [place] [address] Geoff contreras@[email or web address] documented as of this encounter Visit Diagnoses Not on filedocumented in this encounter Care Teams Pompom Maker Relationship Specialty Start Date End Date Denis Issa MD [address] [place] [address] PCP - General Internal Medicine 08/05/23 August Tolliver MD [address] [address] General Surgery 08/05/23 Teri Nova MD 450 [place] [address] [email or web address] Medical Oncology 08/27/23 Willian Moss MD [address] [place] [address] [email or web address]@[facility] Surgical Oncology 10/13/23 Guerita Madrid MD [address] [place] [address] [place] [address] [email or web address] Gastrointestinal Surgery 10/13/23 Quynh Chapman MD 271 [place] [address] Landy@ [facility] Internal Medicine 10/13/23 Guerita [place] MD 271 [place] [address] [email or web address] Radiation Oncology 10/13/23 Conchita Almaraz MD [address] [place] [address] [email or web address]@[facility] Internal Medicine 10/13/23 documented as of this encounter Additional Source Comments The information contained in this document represents components of the legal health record. It is not the complete legal health record.[facility]
--- OUTSIDE RECORDS SUMMARY | 2025-07-14 07:24 | XMS_ITS | Encounter Summary ---
Author Organization [facility] Address 399 [facility] [address] [place] [address] Phone Care Team Providers Care Lead Web Developer Name Role Phone Denis Issa MD Primary Care Provider [phone] August Tolliver MD Unavailable Teri Nova MD Unavailable [phone] Willian Moss MD Unavailable [phone] Guerita Madrid MD Unavailable [phone] Quynh Chapman MD Unavailable [phone] Guerita Clayton MD Unavailable Conchita Almaraz MD Unavailable [phone] Encounter Details Date Type Department Care Team (Late st Contact Info) Description 02/16/2024 Procedure Pass [facility] Periop 75 [place] [address] Social History Tobacco Use Types Packs/Day Years Used Date Smoking Tobacco: Some Days Cigars Smokeless Tobacco: Never Comments:Cigar on special oc [...] high school, GED, job training, learning the Nepalese language, technical skills, or developing parenting skills)? [...] Date of Assessment Author No Risk Indicated 02/16/2024 9:00 PM EDT Urmila Abarca, SALINA * [facility] Suicide Severity Rating Scale (Screener/Recent Self-Report) Question Answer Date of Assessment Author 1. Wish to be (Past 1 Month) No 02/16/2024 9:00 PM EDT Andres Abarca, SALINA 2. Non-Specific Active Suicidal Thoughts (Past 1 Month) No 02/16/2024 9:00 PM EDT Andres Abarca, RN 6. Suicidal Behavior (Lifetime) No 02/16/2024 9:00 PM EDT Andres Abarca RN documented as of this encounter Plan of Treatment Upcoming Encounters Date Type Department Care Team (Late st Contact Info) Description 05/21/2025 Procedure Pass [facility] Imaging Department, [facility], [place] 450 [facility], Floor L1 [place] [address] 05/21/2025 Procedure Pass [facility] Imaging Department, [facility], [place] 450 [facility], Floor L1 [place] [address] 07/31/2025 7:40 AM EDT Appointment [facility] Imaging Department, [facility], [place] 450 [facility], Floor L1 [place] [address] Cristian Black MD [address] [place] [address] Geoff contreras@[email or web address] 07/31/2025 12:00 PM EDT Office Visit [facility], [address], 10th [place] [address] Cristian Black MD [address] [place] [address] Geoff contreras@[email or web address] documented as of this encounter Visit Diagnoses Not on filedocumented in this encounter Care Teams Lead Web Developer Relationship Specialty Start Date End Date Denis Issa MD 222 [facility] 301 [place] [address] PCP - General Internal Medicine 08/05/23 August Tolliver MD 175 [facility] 110 [place] [address] General Surgery 08/05/23 Teri Nova MD [address] [place] [address] Jocelyn@[facility] Medical Oncology 08/27/23 Willian Moss MD [address] [place] [address] [email or web address]@[facility] Surgical Oncology 10/13/23 Guerita Madrid MD [address] [place] [address] [address] Elevators [place], [place] [email or web address]@[facility] Gastrointestinal Surgery 10/13/23 Quynh Chapman MD 271 [place] [address] Landy@ [facility] Internal Medicine 10/13/23 Guerita Clayton MD 271 [place] [address] [email or web address] Radiation Oncology 10/13/23 Conchita Almaraz MD [address] [place] [address] [email or web address] Internal Medicine 10/13/23 documented as of this encounter Additional Source Comments The information contained in this document represents components of the legal health record. It is not the complete legal health record.[facility]
--- OUTSIDE RECORDS SUMMARY | 2025-07-14 07:24 | XMS_ITS | Encounter Summary ---
Author Organization [facility] Address [address] [facility] [address] [place] [address] Phone Care Team Providers Care Stiff Leg Derrick Operator Name Role Phone Denis Issa MD Primary Care Provider [phone] August Tolliver MD Unavailable Teri Nova MD Unavailable [phone] Willian Moss MD Unavailable [phone] Guerita Madrid MD Unavailable [phone] Quynh Chapman MD Unavailable [phone] Guerita Clayton MD Unavailable [phone] Conchita Almaraz MD Unavailable [phone] Encounter Details Date Type Department Care Team (Late st Contact Info) Description 06/21/2024 Procedure Pass [facility]'s Web Development Instructor [place] [address] [place] [address] Social History Tobacco Use Types Packs/Day Years [...] st Contact Info) Description 05/21/2025 Procedure Pass [facility] Imaging Department, [facility] [place] [address] [facility], [place] [address]1 [place] [address] 05/21/2025 Procedure Pass [facility] Imaging Department, [facility] [place] [address] [facility], Floor [address]1 [place] [address] 07/31/2025 7:40 AM EDT Appointment [facility], [facility], [place] [address] [facility], Floor [address]1 [place] [address] Cristian Black MD [address] [place] [address] Geoff contreras@[facility] 07/31/2025 12:00 PM EDT Office Visit [facility], [address], 10th [place] [address] Cristian Black MD [address] [place] [address] Geoff contreras@[facility] documented as of this encounter Visit Diagnoses Not on filedocumented in this encounter Care Teams Stiff Leg Derrick Operator Relationship Specialty Start Date End Date Denis Issa MD 222 [facility] 301 [place] [address] PCP - General Internal Medicine 08/05/23 August Tolliver MD 175 [facility] 110 [place] [address] General Surgery 08/05/23 Teri Nova MD [address] [place] [address] Jocelyn@[facility] Medical Oncology 08/27/23 Willian Moss MD [address] [place] [address] [email or web address]@[facility] Surgical Oncology 10/13/23 Guerita Madrid MD [address] [place] [address] [email or web address]@[facility] Gastrointestinal Surgery 10/13/23 Quynh Chapman MD 271 [place] [id number] Landy@ [facility] Internal Medicine 10/13/23 Guerita Clayton MD [address] [place] [address] [email or web address] Radiation Oncology 10/13/23 Conchita Almaraz MD [address] [place] [address] [email or web address] Internal Medicine 10/13/23 documented as of this encounter Additional Source Comments The information contained in this document represents components of the legal health record. It is not the complete legal health record.[facility]
--- OUTSIDE RECORDS SUMMARY | 2025-07-14 07:24 | XMS_ITS | Encounter Summary ---
Author Organization [facility] Address [address] [facility] [address] [place] [address] Phone Care Team Providers Care Correctional Nurse Name Role Phone Deins Issa MD Primary Care Provider [phone] August Tolliver MD Unavailable Teri Nova MD Unavailable [phone] Willian Moss MD Unavailable [phone] Guerita Madrid MD Unavailable [phone] Quynh Chapman MD Unavailable [phone] Guerita Clayton MD Unavailable Conchita Almaraz MD Unavailable [phone] Encounter Details Date Type Department Care Team (Late st Contact Info) Description 05/29/2024 Procedure Pass [facility] Cross Sectional Interventional Radiology [address] [place] [address] Social History Tobacco Use Types Packs/Day Years [...] high school, GED, job training, learning the Panamanian language, technical skills, or developing parenting skills)? [...] st Contact Info) Description 05/21/[address] [facility] Imaging Department, [facility] [place], [place] [address] [facility], Floor [address]1 [place] [address] 05/21/[address] [facility] Imaging Department, [facility] [place] [place] [address] [facility], Floor [address]1 [place] [address] 07/31/2025 7:40 AM EDT Appointment [facility], [facility], [place] [address] [facility], [address]1 [place] [address] Cristian Black MD 450 [place] [address] Geoff contreras@[facility] 07/31/2025 12:00 PM EDT Office Visit [facility], [facility] [address] [facility], 10th [place] [address] Cristian Black MD 450 [place] [address] Geoff contreras@[facility] documented as of this encounter Visit Diagnoses Not on filedocumented in this encounter Care Teams Correctional Nurse Relationship Specialty Start Date End Date Denis Issa MD 222 [facility] 301 [place] [address] PCP - General Internal Medicine 08/05/23 August Tolliver MD 175 [facility] 110 [place] [address] General Surgery 08/05/23 Teri Nova MD [address] [place] [address] Jocelyn@[facility] Medical Oncology 08/27/23 Willian Moss MD [address] [place] [address] [email or web address]@[facility] Surgical Oncology 10/13/23 Guerita Madrid MD 45 [facility] 3rd [place] [address] gopi@[facility] Gastrointestinal Surgery 10/13/23 Quynh Chapman MD 271 [place] [phone] Landy@ [facility].[employer] Internal Medicine 10/13/23 Guerita Clayton MD 271 [place] [address] [email or web address]@[facility] Radiation Oncology 10/13/23 Conchita Almaraz MD [address] [place] [address] [email or web address] hospitalOncoFusion Therapeutics[facility] hospital Internal Medicine 10/13/23 documented as of this encounter Additional Source Comments The information contained in this document represents components of the legal health record. It is not the complete legal health record.[facility]
--- OUTSIDE RECORDS SUMMARY | 2025-07-14 07:24 | XMS_ITS | Encounter Summary ---
Author Organization [facility] Address [address] [facility] [address] [place] [address] Phone Care Team Providers Care Machine Hose Cutter Name Role Phone Denis Issa MD Primary Care Provider [phone] August Tolliver MD Unavailable Teri Nova MD Unavailable [phone] Willian Moss MD Unavailable [phone] Guerita Madrid MD Unavailable [phone] Quynh Chapman MD Unavailable [phone] Guerita Clayton MD Unavailable Conchita Almaraz MD Unavailable [phone] Encounter Details Date Type Department Care Team (Late st Contact Info) Description 04/11/2024 Procedure Pass [facility] Cross Sectional Interventional Radiology [address] [place] [address] Social History Tobacco Use Types Packs/Day Years [...] high school, GED, job training, learning the Nicaraguan language, technical skills, or developing parenting skills)? [...] st Contact Info) Description 05/21/2025 Procedure Pass [facility] Imaging Department, [facility] [place], [place] [address] [facility], Floor [address]1 [place] [address] 05/21/2025 Procedure Pass [facility] Imaging Department, [facility] [place], [place] [address] [facility], Floor [address]1 [place] [address] 07/31/2025 7:40 AM EDT Appointment [facility] Imaging [facility], [facility], [place] [address] [facility], Floor [address]1 [place] [address] Cristian Black MD 450 [place] [address] Geoff contreras@[facility] 07/31/2025 12:00 PM EDT Office Visit [facility], [facility] 450 [facility], 10th [place] [address] Cristian Black MD 450 [place] [address] Geoff contreras@[facility] documented as of this encounter Visit Diagnoses Not on filedocumented in this encounter Care Teams Machine Hose Cutter Relationship Specialty Start Date End Date Denis Issa MD 222 [facility] 301 [place] [address] PCP - General Internal Medicine 08/05/23 August Tolliver MD 175 [facility] 110 [place] [address] General Surgery 08/05/23 Teri Nova MD [address] [place] [address] Jocelyn@[email or web address] Medical Oncology 08/27/23 Willian Moss MD [address] [place] [address] honey@[email or web address] Surgical Oncology 10/13/23 Guerita Madrid MD 45 [facility] 3rd [place] [address] [email or web address]@[email or web address] Gastrointestinal Surgery 10/13/23 Quynh Chapman MD 271 [place] [phone] Landy@ [facility].[employer] Internal Medicine 10/13/23 Guerita Clayton MD 271 [place] [address] [email or web address]@[facility] Radiation Oncology 10/13/23 Conchita Almaraz MD [address] [place] [address] clarence@[facility] medical centerSenova Systemsshriners hospitals for children Internal Medicine 10/13/23 documented as of this encounter Additional Source Comments The information contained in this document represents components of the legal health record. It is not the complete legal health record.[facility]
--- OUTSIDE RECORDS SUMMARY | 2025-07-14 07:24 | XMS_ITS | Encounter Summary ---
Author Organization [facility] Address [address] [facility] [address] [place] [address] Phone Care Team Providers Care Poolroom/Poolhall Manager Name Role Phone Denis Issa MD Primary Care Provider [phone] August Tolliver MD Unavailable Teri Nova MD Unavailable [phone] Willian Moss MD Unavailable [phone] Guerita Madrid MD Unavailable [phone] Quynh Chapman MD Unavailable [phone] Guerita Clayton MD Unavailable [phone] Conchita Almaraz MD Unavailable [phone] Encounter Details Date Type Department Care Team (Late st Contact Info) Description 03/23/2024 Procedure Pass [facility] MR Imaging, [place] [address] [place] [address] Social History Tobacco Use Types Packs/Day Years [...] high school, GED, job training, learning the Emirati language, technical skills, or developing parenting skills)? [...] Info) Description 05/21/2025 Procedure Pass [facility] Imaging Department, [facility] [place], [place] [address] [facility], Floor L1 [place] [address] 05/21/2025 Procedure Pass [facility] Imaging Department, [facility] [place], [place] [address] [facility], Floor L1 [place] [address] 07/31/2025 7:40 AM EDT Appointment [facility], [facility] [facility], Floor L1 [place] [address] Cristian Black MD 450 [place] [address] Geoff contreras@[facility] 07/31/2025 12:00 PM EDT Office Visit [facility], [facility] 450 [facility], 10th [place] [address] Cristian Black MD 450 [place] [address] Geoff contreras@[facility] documented as of this encounter Visit Diagnoses Not on filedocumented in this encounter Care Teams Poolroom/Poolhall Manager Relationship Specialty Start Date End Date Denis Issa MD 222 [facility] 301 [place] [address] PCP - General Internal Medicine 08/05/23 August Tolliver MD 175 [facility] 110 [place] [address] General Surgery 08/05/23 Teri Nova MD [address] [place] [address] Jocelyn@[facility] Medical Oncology 08/27/23 Willian Moss MD [address] [place] [address] honey@[facility] Surgical Oncology 10/13/23 Guerita Madrid MD [address] [facility] 3rd [place] [address] [email or web address] Gastrointestinal Surgery 10/13/23 Quynh Chapman MD 271 [place] [address] Landy@ [facility] Internal Medicine 10/13/23 Guerita Clayton MD 271 [place] [address] [email or web address]@[facility] Radiation Oncology 10/13/23 Conchita Almaraz MD [address] [place] [address] clarence@[facility] Internal Medicine 10/13/23 documented as of this encounter Additional Source Comments The information contained in this document represents components of the legal health record. It is not the complete legal health record.[facility]
--- OUTSIDE RECORDS SUMMARY | 2025-07-14 07:24 | XMS_ITS | Encounter Summary ---
Author Organization [facility] Address 399 [facility] [address] [place] [address] Phone Care Team Providers Care Screw Machine Operator Swiss Type Name Role Phone Denis Issa MD Primary Care Provider [phone] August Tolliver MD Unavailable [phone] Teri Nova MD Unavailable [phone] Willian Moss MD Unavailable [phone] Guerita Madrid MD Unavailable [phone] Quynh Chapman MD Unavailable [phone] Guerita Clayton MD Unavailable Conchita Almaraz MD Unavailable [phone] Encounter Details Date Type Department Care Team (Late st Contact Info) Description 06/21/2024 Procedure Pass [facility] [address] [place] [address] Social History Tobacco Use Types Packs/Day Years [...] high school, GED, job training, learning the Northern Irish language, technical skills, or developing parenting skills)? [...] st Contact Info) Description 05/21/2025 Procedure Pass [facility] Imaging Department, [facility] [place], [place] 450 [facility], Floor L1 [place] [address] 05/21/2025 Procedure Pass [facility] Imaging Department, [facility] [place] [address] [facility], Floor L1 [place] [address] 07/31/2025 7:40 AM EDT Appointment [facility] Imaging [facility], [facility], [place] [address] [facility], Floor L1 [place] [address] Cristian Black MD 450 [place] [address] Geoff contreras@[facility] 07/31/2025 12:00 PM EDT Office Visit [facility], [facility] 450 [facility], 10th [place] [address] Cristian Black MD 450 [place] [address] Geoff contreras@[facility] documented as of this encounter Visit Diagnoses Not on filedocumented in this encounter Care Teams Screw Machine Operator Swiss Type Relationship Specialty Start Date End Date Denis Issa MD 222 [facility] 301 [place] [address] PCP - General Internal Medicine 08/05/23 August Tolliver MD 175 [facility] 110 [place] [address] General Surgery 08/05/23 Teri Nova MD [address] [place] [address] Jocelyn@[facility] Medical Oncology 08/27/23 Willian Moss MD [address] [place] [address] honey@[facility] Surgical Oncology 10/13/23 Guerita Madrid MD 45 [facility] 3rd [place] [address] gopi@[facility] Gastrointestinal Surgery 10/13/23 Quynh Chapman MD 271 [place] [address] Landy@ [facility] Internal Medicine 10/13/23 Guerita Clayton MD 271 [place] [address] racheal@[facility] Radiation Oncology 10/13/23 Conchita Almaraz MD [address] [place] [address] [email or web address]@[email or web address] Internal Medicine 10/13/23 documented as of this encounter Additional Source Comments The information contained in this document represents components of the legal health record. It is not the complete legal health record.[facility]
--- OUTSIDE RECORDS SUMMARY | 2025-07-14 07:24 | XMS_ITS | Encounter Summary ---
Author Organization [facility] Address [address] [facility] [address] [place] [address] Phone Care Team Providers Care Consulting Services Associate Name Role Phone Denis Issa MD Primary Care Provider [phone] August Tolliver MD Unavailable [phone] Teri Nova MD Unavailable [phone] Willian Moss MD Unavailable Guerita Madrid MD Unavailable Quynh Chapman MD Unavailable [phone] Guerita Clayton MD Unavailable Conchita Almaraz MD Unavailable [phone] Encounter Details Date Type Department Care Team (Late st Contact Info) Description 02/28/2025 Procedure Pass [facility] Imaging Department, [facility] [place] 450 [facility], Floor L1 [place] [address] Social History Tobacco Use Types Packs/Day Years [...] high school, GED, job training, learning the Egyptian language, technical skills, or developing parenting skills)? [...] st Contact Info) Description 05/21/2025 Procedure Pass [facility] Imaging Department, [facility] [place] 450 [facility], Floor L1 [place] [address] 05/21/2025 Procedure Pass [facility] Imaging Department, [facility], [place] [address] [facility], Floor L1 [place] [address] 07/31/2025 7:40 AM EDT Appointment [facility] Imaging Department, [facility], [place] [address] [facility], Floor L1 [place] [address] Cristian Black MD [address] [place] [address] Geoff contreras@[facility] 07/31/2025 12:00 PM EDT Office Visit [facility], [address], 10th [place] [address] Cristian Black MD [address] [place] [address] Geoff contreras@[facility] documented as of this encounter Visit Diagnoses Not on filedocumented in this encounter Care Teams Consulting Services Associate Relationship Specialty Start Date End Date Denis Issa MD 222 [facility] 301 [place] [address] PCP - General Internal Medicine 08/05/23 August Tolliver MD 175 [facility] 110 [place] [address] General Surgery 08/05/23 Teri Nova MD 450 [place] [address] Jocelyn@[facility] Medical Oncology 08/27/23 Willian Moss MD [address] [place] [address] honey@[facility] Surgical Oncology 10/13/23 Guerita Madrid MD [address] [place] [address] [place] [address] gopi@[facility] Gastrointestinal Surgery 10/13/23 Quynh Chapman MD 271 [place] [address] Landy@ [facility] Internal Medicine 10/13/23 Guerita Clayton MD 271 [place] [address] [email or web address]@[facility] Radiation Oncology 10/13/23 Conchita Almaraz MD [address] [place] [address] clarence@[email or web address] Internal Medicine 10/13/23 documented as of this encounter Additional Source Comments The information contained in this document represents components of the legal health record. It is not the complete legal health record.[facility]
--- OUTSIDE RECORDS SUMMARY | 2025-07-14 07:24 | XMS_ITS | Encounter Summary ---
Author Organization [facility] Address 399 [facility] [address] [place] [address] Phone Care Team Providers Care Powder Blender Name Role Phone Denis Issa MD Primary Care Provider [phone] August Tolliver MD Unavailable Teri Nova MD Unavailable [phone] Willian Moss MD Unavailable Guerita Madrid MD Unavailable [phone] Quynh Chapman MD Unavailable [phone] Guerita Clayton MD Unavailable [phone] Conchita Almaraz MD Unavailable [phone] Encounter Details Date Type Department Care Team (Late st Contact Info) Description 02/28/2025 Procedure Pass [facility] Imaging Department, [facility] [place], [place] [address] [facility], Floor L1 [place] [address] Social History Tobacco Use Types Packs/Day [...] high school, GED, job training, learning the Gibraltarian language, technical skills, or developing parenting skills)? [...] st Contact Info) Description 05/21/2025 Procedure Pass [facility] Imaging Department, [facility] [place] [address] [facility], Floor L1 [place] [address] 05/21/2025 Procedure Pass [facility] Imaging Department, [facility], [place] [address] [facility], Floor L1 [place] [address] 07/31/2025 7:40 AM EDT Appointment [facility] Imaging Department, [facility], [place] [address] [facility], Floor L1 [place] [address] Cristian Black MD [address] [place] [address] Geoff contreras@[facility] 07/31/2025 12:00 PM EDT Office Visit [facility], [address], 10th [place] [address] Cristian Black MD [address] [place] [address] Geoff contreras@[facility] documented as of this encounter Visit Diagnoses Not on filedocumented in this encounter Care Teams Powder Blender Relationship Specialty Start Date End Date Denis Issa MD 222 [facility] 301 [place] [address] PCP - General Internal Medicine 08/05/23 August Tolliver MD 175 [facility] 110 [place] [address] General Surgery 08/05/23 Teri Nova MD 450 [place] [address] Jocelyn@[facility] Medical Oncology 08/27/23 Willian Moss MD [address] [place] [address] honey@[facility] Surgical Oncology 10/13/23 Guerita Madrid MD [address] [place] [address] [place] [address] gopi@[facility] Gastrointestinal Surgery 10/13/23 Quynh Chapman MD 271 [place] [address] Landy@ [facility] Internal Medicine 10/13/23 Guerita Clayton MD 271 [place] [address] [email or web address]@[facility] Radiation Oncology 10/13/23 Conchita Almaraz MD [address] [place] [address] clarence@[email or web address] Internal Medicine 10/13/23 documented as of this encounter Additional Source Comments The information contained in this document represents components of the legal health record. It is not the complete legal health record.[facility]
--- OUTSIDE RECORDS SUMMARY | 2025-07-14 07:24 | XMS_ITS | Encounter Summary ---
Author Organization [facility] Address [address] [facility] [address] [place] [id number] Phone Care Team Providers Care [employer] Supervisor Name Role Phone Denis Issa MD Primary Care Provider [phone] August Tolliver MD Unavailable Teri Nova MD Unavailable [phone] Willian Moss MD Unavailable [phone] Guerita Madrid MD Unavailable [phone] Quynh Chapman MD Unavailable [phone] Guerita Clayton MD Unavailable Conchita Almaraz MD Unavailable [phone] Encounter Details Date Type Department Care Team (Late st Contact Info) Description 04/28/2024 Procedure Pass [facility] [address] [place] [address] Social History Tobacco Use Types Packs/Day Years [...] high school, GED, job training, learning the [place]ian language, technical skills, or developing parenting skills)? [...] st Contact Info) Description 05/21/2025 Procedure Pass [facility] Imaging Department, [facility] [place], [place] [address] [place] [address] 05/21/2025 Procedure Pass [facility] Imaging Department, [facility] [place], [place] [address] [place] [address] 07/31/2025 7:40 AM EDT Appointment [facility] Imaging Department, [facility], [place] [address] [place] [address] Cristian Black MD [address] [place] [address] [email or web address] 07/31/2025 12:00 PM EDT Office Visit [facility] [address] [facility] [place] [address] Cristian Black MD [address] [place] [address] [email or web address] documented as of this encounter Visit Diagnoses Not on filedocumented in this encounter Care Teams [employer] Supervisor Relationship Specialty Start Date End Date Denis Issa MD [address] [facility] [address] [place] [address] PCP - General Internal Medicine 08/05/23 August Tolliver MD [address] [facility] [address] [place] [address] General Surgery 08/05/23 Teri Nova MD [address] [place] [id number] [email or web address] Oncology 08/27/23 Willian Moss MD [address] [place] [address] [email or web address] 10/13/23 Guerita Madrid MD [address] [place] [address] [email or web address] 10/13/23 Quynh Chapman MD [address] [place] [id number] [email or web address] Medicine 10/13/23 Guerita Clayton MD [address] [place] [address] [email or web address] [email or web address] 10/13/23 Conchita Almaraz MD [address] [place] [id number] [email or web address] Internal Medicine 10/13/23 documented as of this encounter Additional Source Comments The information contained in this document represents components of the legal health record. It is not the complete legal health record.[facility]
--- OUTSIDE RECORDS SUMMARY | 2025-07-14 07:24 | XMS_ITS ---
Author Organization [facility] Address [address] [facility] [address] [place] [address] Phone Care Team Providers Care Heating And Air Conditioning Mechanic Name Role Phone Denis Issa MD Primary Care Provider [phone] August Tolliver MD Unavailable [phone] Teri Nova MD Unavailable [phone] Willian Moss MD Unavailable [phone] Guerita Madrid MD Unavailable Quynh Chapman MD Unavailable [phone] Guerita Clayton MD Unavailable Conchita Almaraz MD Unavailable [phone] Active Problems Problem Noted Date Diagnosed Date Ileostomy in place 05/25/2024 Rectal cancer 02/16/2024 Rectal carcinoma 12/17/2023 Current Treatment and Therapy Plans [facility] Cellular Therapy Collection* Plan Start Date:05/21/2025 Plan Provider:Palma Venegas PA-C Linked Problems Rectal carcinoma Treatment Medications No medications scheduled. Past Treatment and Therapy Plans No past plan information found.
--- OUTSIDE RECORDS SUMMARY | 2025-07-14 07:24 | XMS_ITS | Clinical Summary ---
Author Organization [facility] Address [address] [address] Phone Care Team Providers Care Field Marketing Specialist Name Role Phone Denis Issa MD Primary Care Provider [phone] August Tolliver MD Unavailable [phone] Teri Nova MD Unavailable [phone] Willian Moss MD Unavailable Guerita Madrid MD Unavailable [phone] Quynh Chapman MD Unavailable [phone] Guerita Clayton MD Unavailable Conchita Almaraz MD Unavailable [phone] Allergies Active Allergy Reactions Criticality Noted Date Comments Bee Sting Kit Neuropathy,Swelling Medium 02/09/2024 Bee Pollen 09/06/2023 Lisinopril Cough 09/06/2023 Medications metoprolol succinate (TOPROL-XL) 50 MG 24 hr tablet Take 50 mg by mouth daily. 04/20/2023 Active apixaban (ELIQUIS) 5 mg tabletIndication s:Rectal cancer Take 1 tablet (5 mg total) by mouth 2 (two) times a day. 180 tablet 3 01/31/2025 Active loperamide (IMODIUM) 2 mg capsule Take 2 mg by mouth 4 (four) times a day as needed for diarrhea. Active magnesium chloride 64 mg TbEC Take 1,066 mg by mouth daily. Active potassium chloride (KLOR-CON) 20 mEq packet Take 20 mEq by mouth 2 (two) times a day. Active dexAMETHasone (DECADRON) 4 MG tablet Take 4 mg by mouth as needed. Active diphenoxylate-at ropine (LOMOTIL) 2.5-0.025 mg per tablet Take 1 tablet by mouth 4 (four) times a day as needed for diarrhea. Active Active Problems Problem Noted Date Diagnosed Date Ileostomy in place 05/25/2024 Rectal cancer 02/16/2024 Rectal carcinoma 12/17/2023 Encounters Date Type Department Care Team Description 05/21/2025 7:30 AM EDT Nurse Only [facility], Division of Hematologic Oncology, [address], [address] [place] [address] Cristian Black MD Kineavy, Brendan Edward, SALINA 05/21/2025 7:30 AM EDT Office Visit [facility], [address], [address] [place] [address] Cristian Black MD Rectal carcinoma (Primary Dx) 05/21/2025 Orders Only [facility], Division of Hematologic Oncology, [address], [address] [place] [address] Cristian Black MD Metastasis from rectal cancer (Primary Dx) 05/17/2025 Telephone [facility] for Multiple Myeloma, Division of Hematologic Oncology, [address], [address] [place] [address] Cassius Benitez, SALINA 05/17/2025 Documentation [facility] Blood Donor Center [address] [facility] [address] [place] [address] Palma Venegas PA-C 05/15/2025 Orders Only [facility], Division of Hematologic Oncology, [address], [address] [place] [address] Cristian Black MD Metastasis from rectal cancer (Primary Dx) 05/14/2025 Documentation [facility]eloma, Division of Hematologic Oncology, [facility] [place] [address] [facility], [address] [place] [address] Cassius Benitez RN 05/14/2025 Documentation [facility] Multiple Myeloma, Division of Hematologic Oncology, [facility] [place] [address] [facility], [address] [place] [address] Cassius Benitez RN 05/11/2025 10:26 AM EDT - 05/11/2025 11:59 PM EDT Hospital Encounter [facility] Imaging Department, [facility], MRI [address] [facility], [address] [place] [address] Cristian Black MD Discharge Disposition: Home or Self Care 05/11/2025 8:29 AM EDT - 05/11/2025 10:25 AM EDT Hospital Encounter [facility] Imaging Department, [facility], Nuclear Medicine [address], [address] [place] [address] Cristian Black MD Discharge Disposition: Home or Self Care 05/09/2025 Telephone [facility]etics and Prevention, [facility] [address] [facility], 10[address] [place] [address] Rosalina Peace [facility] Results 05/08/2025 Orders Only [facility] for Multiple Myeloma, Division of Hematologic Oncology, [facility] [address] [facility], [address]th [place] [address] Cassius Benitez RN Rectal carcinoma (Primary Dx) 05/07/2025 3:30 PM EDT Infusion [facility] Imaging Department, [facility], Imaging [id number] [address], [address] [place] [address] Cristian Black MD Kirrane, Susan, RN 05/07/2025 2:32 PM EDT - 05/07/2025 11:59 PM EDT Hospital Encounter [facility] Imaging Department, [facility], PET/CT [address] [place] [address] Cristian Black MD Discharge Disposition: Home or Self Care 05/04/2025 Orders Only [facility], Division of Hematologic Oncology, [facility] [address] [facility], [address] [place] [address] Cristian Black MD Metastasis from rectal cancer (Primary Dx); Need for hepatitis C screening test; Need for hepatitis B screening test 05/02/2025 Orders Only [facility], Division of Hematologic Oncology, [facility] [address], [address] [place] [address] Cristian Black MD Metastasis from rectal cancer (Primary Dx) 05/01/2025 Orders Only [facility] Blood Donor [address] [place] [address] Cristian Black MD Autologous donor of stem cells (Primary Dx) 04/30/2025 Procedure Pass [facility] Imaging Department, [facility], MRI [address], [address] [place] [address] 04/30/2025 Orders Only [facility], Division of Hematologic Oncology, [facility] [address] [facility], [address] [place] [address] Cristian Black MD Metastasis from rectal cancer (Primary Dx) 04/25/2025 4:30 PM EDT Office Visit [facility], [facility] [address], [address] [place] [address] Cristian Black MD Rectal cancer (Primary Dx) 04/25/2025 12:40 PM EDT - 04/25/2025 11:59 PM EDT Hospital Encounter [facility] Imaging Department, [facility], [place] [address], [address] [place] [address] Cristian Black MD Discharge Disposition: Home or Self Care 02/28/2025 Procedure Pass [facility] Imaging Department, [facility], [place] [address], [address] [place] [address] 02/28/2025 Procedure Pass Elzbieta Lank Imaging Department, [facility], [place] [address], [address] [place] [address] from Last 3 Months Family History Medical History Relation Comments Testicular cancer Brother Heart attack Father Breast cancer Maternal Aunt Cervical cancer Maternal Grandmother from c ervical cancer Uterine cancer Paternal Grandmother Colon cancer Neg Hx Relation Status Comments Brother Alive Father Maternal Aunt Alive Maternal Grandmother Paternal Grandmother Social History Tobacco Use Types Packs/Day Years Used Date Smoking Tobacco: Some Days Cigars Passive Smoke Exposure: Past Smokeless Tobacco: Never Tobacco Cessation:Ready to Q uit: Not Asked; Counseling Given: Not Answered Comments:Cigar on special occasions Alcohol Use Standard Drinks/Week Comments Not Currently [...] Orientation Straight 08/05/2023 1: 17 PM EDT Last Filed Vital Signs Vital Sign Reading Time Taken Comments Blood Pressure 132/89 05/21/2025 7:27 AM EDT Pulse 81 05/21/2025 7:27 AM EDT Temperature 36.5 C (97.7 F) 05/21/2025 7:27 AM EDT Respiratory Rate 18 05/21/2025 7:27 AM EDT Oxygen Saturation 98% 05/21/2025 7:27 AM EDT Inhaled Oxygen Concentration - - Weight 115 kg (253 lb 8.5 oz) 05/21/2025 7:27 AM EDT Height 177.8 cm (5' 10 ) 02/15/2025 10:56 AM EDT Body Mass Index 36.38 02/15/2025 10:56 AM EDT Plan of Treatment Upcoming Encounters Date Type Department Care Team (Late st Contact Info) Description 05/21/2025 Procedure Pass [facility] Imaging Department, [facility], [place] [address], [address] [place] [address] 05/21/2025 Procedure Pass [facility] Imaging Department, [facility], [place] [address], [address] [place] [address] 07/31/2025 7:40 AM EDT Appointment [facility] Imaging Department, [facility], [place] [address], [address] [place] [address] Cristian Black MD [address] [place] [id number] [email or web address] 07/31/2025 12:00 PM EDT Office Visit [facility], [address], [address] [place] [address] Cristian Black MD [address] [place] [id number] [email or web address] Health Maintenance Due Date Last Done Comments Adult Td,Tdap Booster 1974 LIPID PANEL 1974 DEPRESSION SCREENING 1986 SMOKING Hx and SMOKELESS TOBACCO SCREENING 1987 HEPATITIS A VACCINES (1 of 2 - Risk 2-dose series) 1993 PNEUMOCOCCAL VACCINES (50+ years) (1 of 2 - PCV) 1993 ZOSTER VACCINES (1 of 2) 1993 COLOGUARD 2019 COLONOSCOPY 2019 COLORECTAL CANCER SCREENING 2019 FIT TEST 2019 FOBT 2019 SIGMOIDOSCOPY 2019 VIRTUAL COLONOSCOPY 2019 COVID-19 VACCINE ( season) 2024 02/28/2021, 02/06/2021 POTASSIUM LEVEL 05/07/2026 05/07/2025, 04/15, 02/21/2025, Additional history exists SCREENING FOR DIABETES 05/07/2028 05/07/2025 HEPATITIS C SCREENING Completed 05/07/2025, 025 HIV ONE-TIME SCREENING (18-65 YEARS) Completed 05/07/2025 HIB VACCINES Aged Out No longer eligi ble based on patient's age to complete this topic MENINGOCOCCAL VACCINES (ACWY) Aged Out No longer eligible based on patient's age to complete this topic MENINGOCOCCAL VACCINES (B) Aged Out N o longer eligible based on patient's age to complete this topic Medical Devices Implanted Type Area Internal Medicine Doctor Device Identifier Shelf Expiration Date Model / Serial / Lot Port Port Right: Chest Wall Description:Power port per c brandt verification Cartridge Placement 1x5mm Fusion Coil Marker Sterile Pouch Of 1 - [id number] Implanted:Qty: 1 on 10/01/2023 by Lydia Zaragoza MD at [facility] Right: Liver [employer]IVCO RADIOTHERAPY 11/14/2026 [id number] / / [id number] Procedures Procedure Name Priority Date/Time Associated Diagnosis Comments MRI BRAIN WITH AND WITHOUT CONTRAST Routine 05/11/2025 11:34 AM EDT Metastasis from rectal cancer HC BLOOD COUNT COMPLETE AUTO&AUTO DIFRNTL WBC Routine 05/11/2025 10:33 AM EDT Rectal carcinoma NM ONCOLOGY GATED CARD BLOOD POOL SCAN (MUGA) - DFCI ONLY Routine 05/11/2025 10:25 AM EDT Metastasis from rectal cancer NM PET CT SCALP TO TOES Routine 05/07/20 4:22 PM EDT Metastasis from rectal cancer POCT GLUCOSE Routine 05/07/2025 2:45 PM EDT ECG 12-LEAD Routine 05/07/2025 2:25 PM EDT Metastasis from rectal cancer X-LABEL/STUDY Routine 05/07/2025 1:54 PM EDT Metastasis from rectal cancer PROCALCITONIN Routine 05/07/2025 1:54 PM EDT Metastasis from rectal cancer INTERLEUKIN 6 Routine 05/07/2025 1:54 PM EDT Metastasis from rectal cancer URINALYSIS Routine 05/07/2025 1:54 PM EDT Metastasis from rectal cancer AMYLASE Routine 05/07/2025 1:54 PM EDT Metastasis from rectal cancer LIPASE Routine 05/07/2025 1:54 PM EDT Metastasis from rectal cancer IMMUNOGLOBULINS IGG, IGA, IGM Routine 05/07/2025 1:54 PM EDT Metastasis from rectal cancer PTT Routine 05/07/2025 1:54 PM EDT Metastasis from rectal cancer PT-INR Routine 05/07/2025 1:54 PM EDT Metastasis from rectal cancer FERRITIN Routine 05/07/2025 1:54 PM EDT Metastasis from rectal cancer C-REACTIVE PROTEIN Routine 05/07/2025 1: 54 PM EDT Metastasis from rectal cancer URIC ACID Routine 05/07/2025 1:54 PM EDT Metastasis from rectal cancer LDH Routine 05/07/2025 1:54 PM EDT Metastasis from rectal cancer BILIRUBIN, DIRECT Routine 05/07/2025 1:5 4 PM EDT Metastasis from rectal cancer MAGNESIUM Routine 05/07/2025 1:54 PM EDT Metastasis from rectal cancer PHOSPHORUS Routine 05/07/2025 1:54 PM EDT Metastasis from rectal cancer HC BLOOD COUNT COMPLETE AUTO&AUTO DIFRNTL WBC Routine 05/07/2025 1:54 PM EDT Metastasis from rectal cancer COMPREHENSIVE METABOLIC PANEL Routine 05/07/2025 1:54 PM EDT Metastasis from rectal cancer HEPATITIS C ANTIBODY, QUALITATIVE Routine 05/07/2025 1:54 PM EDT Need for hepatitis C screening test Metastasis from rectal cancer HEPATITIS B CORE ANTIBODY, TOTAL Routine 05/07/2025 1:54 PM EDT Need for hepatitis B screening test Metastasis from rectal cancer HEPATITIS B SURFACE ANTIGEN Routine 05/07/2025 1:54 PM EDT Need for hepatitis B screening test Metastasis from rectal cancer Cytomegalovirus (CMV) PCR, blood Routine 05/07/2025 1:54 PM EDT Metastasis from rectal cancer Martell-Wyman virus (EBV) PCR, blood Routine 05/07/2025 1:54 PM EDT Metastasis from rectal cancer HIV-1/2 ANTIGEN/ANTIBODY Routine 025 1:54 PM EDT Metastasis from rectal cancer HIV-1 VIRAL LOAD (PCR) Routine 5 1:54 PM EDT Metastasis from rectal cancer CT ABDOMEN/PELVIS WITH CONTRAST Routine 04/25/2025 2:05 PM EDT Rectal cancer CT CHEST WITH CONTRAST Routine 2:05 PM EDT Rectal cancer FERRITIN Routine 04/25/2025 12:55 PM EDT Rectal cancer C-REACTIVE PROTEIN Routine 04/25/2025 12 :55 PM EDT Rectal cancer PHOSPHORUS Routine 04/25/2025 12:55 PM EDT Rectal cancer MAGNESIUM Routine 04/25/2025 12:55 PM EDT Rectal cancer COMPREHENSIVE METABOLIC PANEL Routine 04/25/2025 12:55 PM EDT Rectal cancer HC BLOOD COUNT COMPLETE AUTO&AUTO DIFRNTL WBC Routine 04/25/2025 12:55 PM EDT Rectal cancer CARCINOEMBRYONIC ANTIGEN (CEA) Routine 04/25/2025 12:55 PM EDT Rectal cancer from Last 3 Months Results * MRI BRAIN WITH AND WITHOUT CONTRAST (05/11/2025 11:34 AM EDT) Anatomical Region Laterality Modality Head Magnetic Resonan ce Other 05/11/2025 11:3 5 AM EDT Impressions 05/11/2025 11:36 AM EDT No evidence of acute intracranial findings or intracranial metastases. Narrative 05/11/2025 11:36 AM EDT MRI BRAIN WITH AND WITHOUT CONTRAST Referring clinician's provided indication for this examination in [facility]: Research Study TECHNIQUE: MRI BRAIN WITH AND WITHOUT CONTRAST Multi-sequence, multi-planar MRI of the brain was performed before and after intravenous contrast. COMPARISON: Brain MRI 02/27/25 FINDINGS: Brain Parenchyma: No evidence of acute infarct, mass lesion, or hemorrhage. No evidence of enhancing lesions. Ventricular System and Extra-Axial Spaces: Mild trace of extra-axial CSF spaces over the left greater than right cerebellar convexities. No evidence of midline shift or hydrocephalus. Extracranial Structures: Expected arterial flow signal is observed at the skull base. Mild mucosal thickening in the maxillary sinuses with small retention cyst in the right maxillary sinus. Procedure Note Teofilo Michel MD - 05/11/2025 MRI BRAIN WITH AND WITHOUT CONTRAST Referring clinician's provided indication for this examination in [facility]:Research Study TECHNIQUE: MRI BRAIN WITH AND WITHOUT CONTRAST Multi-sequence, multi-planar MRI of the brain was performed before andafter intravenous contrast. COMPARISON: Brain MRI 02/27/25 FINDINGS: Brain Parenchyma: No evidence of acute infarct, mass lesion, orhemorrhage. No evidence of enhancing lesions. Ventricular System and Extra-Axial Spaces: Mild trace of extra-axial CSFspaces over the left greater than right cerebellar convexities. No evidence of midline shift or hydrocephalus. Extracranial Structures: Expected arterial flow signal is observed at theskull base. Mild mucosal thickening in the maxillary sinuses with small retention cystin the right maxillary sinus. IMPRESSION: No evidence of acute intracranial findings or intracranial metastases. us Cristian Black MD IMG MR HEAD/NECK Final Result * (ABNORMAL) CBC and differential (05/11/2025 10:33 AM EDT) Only the most recent of3 resultswithin the time period is included. WBC 3.68(L) 4.00 - 10.00 K/uL [facility] LIC# [id number] RBC 3.64(L) 4.50 - 6.40 M/uL [facility] LIC# [id number] HGB 12.1(L) 13.5 - 18.0 g/dL [facility] LIC# [id number] HCT 37.1(L) 40.0 - 54.0 % [facility] LIC# [id number] PLT 162 150 - 450 K/uL [facility] LIC# [id number] MCV 101.9(H) 80.0 - 100.0 fL [facility] LIC# [id number] MCH 33.2(H) 27.0 - 32.0 pg [facility] LIC# [id number] MCHC 32.6 32.0 - 36.0 g/dL [facility] LIC# [id number] RDW 18.8(H) 11.5 - 14.5 % [facility] LIC# [id number] MPV 10.1 8.4 - 12.0 fL [facility] LIC# [id number] NRBC 0.50(H) 0 /100 WBCs [facility] LIC# [id number] ABSOLUTE NRBC 0.02(H) 0 K/uL [facility] LIC# [id number] DIFF METHOD Auto [facility] LIC# [id number] NEUTS 65.7 48.0 - 76.0 % [facility] LIC# [id number] LYMPHS 15.8(L) 18.0 - 41.0 % [facility] LIC# [id number] MONOS 16.3(H) 4.0 - 11.0 % [facility] LIC# [id number] EOS 1.1 0.0 - 5.0 % [facility] LIC# [id number] BASOS 0.3 0.0 - 1.5 % [facility] LIC# [id number] % IMMATURE GRANS 0.8 0.0 - 1.0 % [facility] LIC# [id number] ABSOLUTE NEUTS 2.42 1.92 - 7.60 K/uL [facility] LIC# [id number] ABSOLUTE LYMPHS 0.58(L) 0.72 - 4.10 K/uL [facility] LIC# [id number] ABSOLUTE MONOS 0.60 0.16 - 1.10 K/uL [facility] LIC# [id number] ABSOLUTE EOS 0.04 0.00 - 0.50 K/uL [facility] LIC# [id number] ABSOLUTE BASOS 0.01 0.00 - 0.15 K/uL [facility] LIC# [id number] ABS IMMATURE GRANS 0.03 0.00 - 0.10 K/uL [facility] LIC# [id number] Blood 05/11/2025 10:3 3 AM EDT 05/11/2025 11:02 AM EDT us Cristian Black MD LAB BLOOD ORDERABLES Fi nal Result [facility] LIC# [id number] [address] [place] [address] * NM Oncology Gated Card Blood Pool Scan (MUGA) - DFCI ONLY (05/11/2025 10:25 AM EDT) Anatomical Region Laterality Modality Vascular, Heart, Thoracic Vasculature Nuclear Medicine Other 05/11/2025 10:2 6 AM EDT Impressions 05/11/2025 10:37 AM EDT 1. Normal left ventricular wall motion and function. 2. Estimated LVEF = 72%. 3. Compared to 02/27/2025, there is no significant change in the estimated LVEF. ATTESTATION: Nasrin Aranda, as teaching physician have reviewed the images, if any, for this patient's exam, and if necessary, have edited the report originally created by Alexis Packer. Narrative 05/11/2025 10:37 AM EDT Reason for exam (per EHR order): Research Study Additional clinical information obtained from the EHR: 49-year-old male. Metastatic rectal cancer. Presents for evaluation of cardiac ejection fraction. TECHNIQUE: Radiopharmaceutical: Tc-99m RBCs. Dose: 27.0 mCi. Image acquisition and processing: Following IV tracer administration of tracer, gated planar cardiac images were obtained in three standard projections (anterior, modified SALVADOREAN, LPO) immediately following IV administration of tracer. The left ventricular ejection fraction (LVEF) was estimated from the 41-degree modified SALVADOREAN images. COMPARISON: The study is compared to the most recent prior RVG of 02/27/2025 at which time the LVEF was estimated to be 68%. FINDINGS: Cinematic images show normal diastolic filling and systolic emptying of the ventricles without evidence of focal wall motion abnormality. The left ventricular ejection fraction (LVEF) is estimated to be 72%. Procedure Note Nasrin Murguia MD - 05/11/2025 Reason for exam (per EHR order): Research Study Additional clinical information obtained from the EHR: 49-year-old male.Metastatic rectal cancer. Presents for evaluation of cardiac ejectionfraction. TECHNIQUE: Radiopharmaceutical: Tc-99m RBCs. Dose: 27.0 mCi. Image acquisition and processing: Following IV tracer administration oftracer, gated planar cardiac images were obtained in three standardprojections (anterior, modified SALVADOREAN, LPO) immediately following IVadministration of tracer. The left ventricular ejection fraction (LVEF)was estimated from the 41-degree modified SALVADOREAN images. COMPARISON: The study is compared to the most recent prior RVG of02/27/2025 at which time the LVEF was estimated to be 68%. FINDINGS: Cinematic images show normal diastolic filling and systolicemptying of the ventricles without evidence of focal wall motionabnormality. The left ventricular ejection fraction (LVEF) is estimated patrick 72%. IMPRESSION: 1. Normal left ventricular wall motion and function. 2. Estimated LVEF = 72%. 3. Compared to 02/27/2025, there is no significant change in theestimated LVEF. ATTESTATION: Nasrin Aranda, as teaching physician have reviewed theimages, if any, for this patient's exam, and if necessary, have edited thereport originally created by Alexis Packer. us Cristian Black MD IMG NM LUNG SCAN Final Result * NM PET CT Scalp to Toes (05/07/2025 4:22 PM EDT) Anatomical Region Laterality Modality Positron Emissio n Tomography (PET) Other 05/10/2025 3:40 PM EDT Impressions 05/11/2025 12:45 PM EDT Compared to FDG PET/CT scan from 02/29/2024, 1. Overall slight decrease in FDG avid hepatic metastatic disease burden as well as FDG uptake in the left common iliac lymph node. 2. New/more conspicuous focal areas of FDG uptake in the left lower omentum, and peritoneum along the right common iliac vasculature, most likely small volume peritoneal carcinomatosis. 3. Slightly more conspicuous focal FDG uptake in the rest of the sites including lower presacral region, right perirectal nodule as well as soft tissue nodularity/lymph nodes along the left internal iliac vasculature and right paracolic gutter nodule, also likely metastatic. 4. Focal FDG uptake at the anorectum l, more conspicuous compared to prior scan. Consider direct clinical examination/biopsy correlation. Narrative 05/11/2025 12:45 PM EDT Reason for exam (per EHR order): Research Study Additional clinical information obtained from the EHR: 49-year-old male with history of rectal adenocarcinoma with oligometastatic disease to the liver, status post chemoradiotherapy, FOLFOX x8 cycles, status post low anterior resection and left hepatectomy, complicated by new metastatic disease to the liver, status post FOLFIRI and bevacizumab, with worsening metastatic disease, possibly enrolling in the [facility] [id number]. He is currently on FOLFOX rechallenge, status post 4 cycles on 04/16/2025. Subsequent treatment strategy. TECHNIQUE: Radiopharmaceutical: F-18-FDG. Dose: 9.98 mCi. Blood glucose: 107 mg/dL. TECHNIQUE: At 60 minutes following IV tracer administration via a port catheter vein, positron emission tomography was performed from the vertex of the skull through the toes. Non-contrast low-dose helical CT imaging was performed over the same range without breath-hold for attenuation correction of PET images and anatomic correlation. COMPARISON: FDG PET/CT scan dated 02/28/2025, CT chest, abdomen and pelvis dated 04/25/2025 FINDINGS: HEAD AND NECK: Resolution of previously seen focal FDG uptake in the right cheek. FDG uptake associated with bilateral temporomandibular joints, degenerative/inflammatory. Mild FDG uptake in the nasopharynx, likely inflammatory. FDG uptake in the palatine tonsils, also likely inflammatory. Subcentimeter right supraclavicular lymph node with mild FDG uptake similar to that of blood pool, likely reactive (image [phone]). CHEST: Ports and devices: Right internal jugular approach intravenous catheter with tip terminating in the lower SVC. Lungs: No abnormal FDG uptake. Pleura: No abnormal FDG uptake. Lymph Nodes: No abnormal FDG uptake. Mediastinum: No abnormal FDG uptake. Mild coronary calcification. Pericardial lipomatosis, physiologic variant, unchanged compared to prior. Breasts/Chest Wall: No abnormal FDG uptake. Asymmetric right greater than left gynecomastia with no focal FDG uptake, unchanged compared to prior. ABDOMEN/PELVIS: Liver/biliary system: No new FDG avid hepatic lesion. Overall slightly decreased FDG avid hepatic lesions, including: * Similar sized approximately 2.4 cm hypodense lesion within the caudate lobe with SUV max 8.7, previously 13.6 * Approximately 3.1 cm segment 3 hypodense lesion with SUV max 9.7, previously 13.1 * Focal FDG uptake along the dome of the liver with SUV max 5.7, previously 5.8 * Focal FDG uptake in segment 6/7 of the liver with SUV max 4.5, previously 5.4. Pancreas: No abnormal FDG uptake. Spleen: No abnormal FDG uptake. Adrenal Glands: No abnormal FDG uptake. Kidneys: No abnormal FDG uptake. Bowel: Diffuse FDG uptake in the underdistended descending colon as well as rectosigmoid, physiological. Focal FDG uptake at the anorectum, more conspicuous/clinical compared to prior scan, is max 12.3, previously 11.6. Anastomotic suture line in the right lower quadrant ileum. FDG uptake in the perianal skin, most likely inflammatory. Mesentery, Omentum and Peritoneum: 0.9 cm right paracolic nodule with SUV max 2.9 (image 260), similar to slightly more conspicuous compared to prior. Perirectal and presacral fat haziness with ill-defined presacral soft tissue with heterogeneous FDG uptake, overall similar size compared to prior scan however, with slightly more conspicuous focal FDG uptake in the subcentimeter lower presacral lesion abutting the rectum (image 320), SUV max 5.7, previously 3.8. Scattered other pelvic nodules/lymph nodes including * Right perirectal 1.5 x 1.0 cm nodule also more conspicuous compared to prior scan (image 321), SUV max 6.3, previously 3.6. * Similar subcentimeter mildly FDG avid nodule abutting the posterolateral right seminal vesicle (image 315), SUV max 2.9. New/more conspicuous focal FDG uptake in the left lower omentum, correlating with an ill-defined area fat haziness and nodularity measuring 1.7 x 1.1 cm with SUV max 6.3 (image 298), previously 2.6. More superiorly, contiguous mild areas of FDG uptake extending up to the midline omentum (image 294). Mildly FDG avid new peritoneal fat haziness also seen in the upper pelvis along the right common iliac vasculature (image 288). Pelvis Organs: FDG activity along the penile urethra, most likely physiological excreted tracer. Lymph Nodes: Decreased focal FDG uptake in the left common iliac lymph node, subcentimeter in size, SUV max 3.3, previously 5.0. Soft tissue nodularity/lymph nodes along the left internal iliac vasculature, subcentimeter in size measuring up to 0.9 cm probable with more conspicuous focal FDG uptake, SUV max 5.5 (image 304), previously 5.0. Prominent activity along the medial left external iliac vasculature (image 298), physiological excreted tracer in the urine in within the ureter. MUSCULOSKELETAL: Diffuse FDG uptake in the bone marrow is most likely reactive. LOWER EXTREMITIES: Circumscribed osseous lesion with thin rim of sclerosis within the proximal tibial metadiaphysis with mild FDG uptake, may represent a benign cartilaginous lesion. Mild FDG uptake in the the right upper anterior abdominal wall linear subcutaneous haziness extending up to the musculature as well as mild FDG uptake in the region of the umbilicus, most likely inflammatory related to prior procedure. Decreased FDG uptake in the sacral spine, related to prior radiation. Procedure Note Madison Winkler MD - 05/11/2025 Reason for exam (per EHR order): Research Study Additional clinical information obtained from the EHR: 49-year-old malewith history of rectal adenocarcinoma with oligometastatic disease to theliver, status post chemoradiotherapy, FOLFOX x8 cycles, status post lowanterior resection and left hepatectomy, complicated by new metastaticdisease to the liver, status post FOLFIRI and bevacizumab, with worseningmetastatic disease, possibly enrolling in the [facility] [id number]. He iscurrently on FOLFOX rechallenge, status post 4 cycles on 04/16/2025.Subsequent treatment strategy. TECHNIQUE: Radiopharmaceutical: F-18-FDG. Dose: 9.98 mCi. Blood glucose: 107 mg/dL. TECHNIQUE: At 60 minutes following IV tracer administration via a portcatheter vein, positron emission tomography was performed from the vertexof the skull through the toes. Non-contrast low-dose helical CT imagingwas performed over the same range without breath-hold for attenuationcorrection of PET images and anatomic correlation. COMPARISON: FDG PET/CT scan dated 02/28/2025, CT chest, abdomen and pelvisdated 04/25/2025 FINDINGS: HEAD AND NECK: Resolution of previously seen focal FDG uptake in the rightcheek. FDG uptake associated with bilateral temporomandibular joints,degenerative/inflammatory. Mild FDG uptake in the nasopharynx, likely inflammatory. FDG uptake in thepalatine tonsils, also likely inflammatory. Subcentimeter right supraclavicular lymph node with mild FDG uptakesimilar to that of blood pool, likely reactive (image 104). CHEST: Ports and devices: Right internal jugular approach intravenous catheterwith tip terminating in the lower SVC. Lungs: No abnormal FDG uptake. Pleura: No abnormal FDG uptake. Lymph Nodes: No abnormal FDG uptake. Mediastinum: No abnormal FDG uptake. Mild coronary calcification.Pericardial lipomatosis, physiologic variant, unchanged compared toprior. Breasts/Chest Wall: No abnormal FDG uptake. Asymmetric right greater thanleft gynecomastia with no focal FDG uptake, unchanged compared to prior. ABDOMEN/PELVIS: Liver/biliary system: No new FDG avid hepatic lesion. Overall slightlydecreased FDG avid hepatic lesions, including: * Similar sized approximately 2.4 cm hypodense lesion within the caudatelobe with SUV max 8.7, previously 13.6 * Approximately 3.1 cm segment 3 hypodense lesion with SUV max 9.7,previously 13.1 * Focal FDG uptake along the dome of the liver with SUV max 5.7,previously 5.8 * Focal FDG uptake in segment 6/7 of the liver with SUV max 4.5,previously 5.4. Pancreas: No abnormal FDG uptake. Spleen: No abnormal FDG uptake. Adrenal Glands: No abnormal FDG uptake. Kidneys: No abnormal FDG uptake. Bowel: Diffuse FDG uptake in the underdistended descending colon as wellas rectosigmoid, physiological. Focal FDG uptake at the anorectum, more conspicuous/clinical compared toprior scan, is max 12.3, previously 11.6. Anastomotic suture line in the right lower quadrant ileum. FDG uptake in the perianal skin, most likely inflammatory. Mesentery, Omentum and Peritoneum: 0.9 cm right paracolic nodule with SUVmax 2.9 (image 260), similar to slightly more conspicuous compared toprior. Perirectal and presacral fat haziness with ill-defined presacral softtissue with heterogeneous FDG uptake, overall similar size compared toprior scan however, with slightly more conspicuous focal FDG uptake in thesubcentimeter lower presacral lesion abutting the rectum (image 320), SUVmax 5.7, previously 3.8. Scattered other pelvic nodules/lymph nodes including * Right perirectal 1.5 x 1.0 cm nodule also more conspicuous compared toprior scan (image 321), SUV max 6.3, previously 3.6. * Similar subcentimeter mildly FDG avid nodule abutting theposterolateral right seminal vesicle (image 315), SUV max 2.9. New/more conspicuous focal FDG uptake in the left lower omentum,correlating with an ill-defined area fat haziness and nodularity measuring1.7 x 1.1 cm with SUV max 6.3 (image 298), previously 2.6. Moresuperiorly, contiguous mild areas of FDG uptake extending up to themidline omentum (image 294). Mildly FDG avid new peritoneal fat haziness also seen in the upper pelvisalong the right common iliac vasculature (image 288). Pelvis Organs: FDG activity along the penile urethra, most likelyphysiological excreted tracer. Lymph Nodes: Decreased focal FDG uptake in the left common iliac lymphnode, subcentimeter in size, SUV max 3.3, previously 5.0. Soft tissue nodularity/lymph nodes along the left internal iliacvasculature, subcentimeter in size measuring up to 0.9 cm probable withmore conspicuous focal FDG uptake, SUV max 5.5 (image 304), previously5.0. Prominent activity along the medial left external iliac vasculature (), physiological excreted tracer in the urine in within the ureter. MUSCULOSKELETAL: Diffuse FDG uptake in the bone marrow is most likelyreactive. LOWER EXTREMITIES: Circumscribed osseous lesion with thin rim of sclerosiswithin the proximal tibial metadiaphysis with mild FDG uptake, mayrepresent a benign cartilaginous lesion. Mild FDG uptake in the the right upper anterior abdominal wall linearsubcutaneous haziness extending up to the musculature as well as mild FDGuptake in the region of the umbilicus, most likely inflammatory related toprior procedure. Decreased FDG uptake in the sacral spine, related to prior radiation. IMPRESSION: Compared to FDG PET/CT scan from 02/29/2024, 1. Overall slight decrease in FDG avid hepatic metastatic disease burdenas well as FDG uptake in the left common iliac lymph node. 2. New/more conspicuous focal areas of FDG uptake in the left loweromentum, and peritoneum along the right common iliac vasculature, mostlikely small volume peritoneal carcinomatosis. 3. Slightly more conspicuous focal FDG uptake in the rest of the sitesincluding lower presacral region, right perirectal nodule as well as softtissue nodularity/lymph nodes along the left internal iliac vasculatureand right paracolic gutter nodule, also likely metastatic. 4. Focal FDG uptake at the anorectum l, more conspicuous compared toprior scan. Consider direct clinical examination/biopsy correlation. us Cristian Black MD IMG NM PET Final R esult * POCT Glucose (05/07/2025 2:45 PM EDT) WHOLE BLOOD GLUCOSE 107 70 - 110 mg/dL [facility] LIC# [id number] 05/07/2025 2:45 PM EDT 05/10/2025 12:55 PM EDT us Cristian Black MD POINT OF CARE TEST ORDZonia SCANLON Final Result [facility] LIC# [id number] [address] [place], [place] [id number] * ECG 12-LEAD (05/07/2025 2:25 PM EDT) Ventricular Rate EKG/MIN 66 BPM [facility] Atrial Rate 66 BPM [facility] GA Interval 206 ms [facility] QRS Duration 120 ms [facility] QT Interval 438 ms [facility] QTC Interval 459 ms [facility] P [place] -12 degrees [facility] R Wave [place] -44 degrees [facility] T Wave [place] 9 degrees [facility] Other 05/07/2025 2:25 PM EDT Narrative [facility] - 05/08/2025 10:45 AM EDT Normal sinus rhythm Left axis deviation Low voltage QRS, consider pulmonary disease, pericardial effusion, or normal variant Nonspecific intraventricular conduction delay Abnormal ECG When compared with ECG of 21-Feb-2025 16:51, Nonspecific intraventricular conduction delay has replaced Right bundle branch block us Cristian Black MD ECG ORDERABLES Final R esult [facility] * X-Label/study (05/07/2025 1:54 PM EDT) EXTRA TUBES NEEDED FOR RESEARCH STUDY [facility] LIC# [id number] Resulting Agency [facility] LIC# [id number] Blood 05/07/2025 1:54 PM EDT 05/07/2025 2:11 PM EDT us Cristian Black MD LAB BLOOD ORDERABLES Fi nal Result Performing Organization Address [facility] Co de Phone Number [facility] LIC# [id number] [address] [place] [address] * Procalcitonin (05/07/2025 1:54 PM EDT) Pathologist [facility] PROCALCITONIN 0.12 0.00 - 0.24 ng/mL [facility] DPT OF LAB MED AND PAT+ Comment: (NOTE) Procalcitonin <0.25 ng/mL may indicate lower probability of bacteremia or bacterial pneumonia. Intracellular bacteria, viruses, and fungi do not cause elevation of procalcitonin, so low values (<0.25 ng/mL) do not rule out other infections. Blood 05/07/2025 1:54 PM EDT 05/07/2025 2:14 PM EDT us Cristian Black MD LAB BLOOD ORDERABLES Fi nal Result Performing Organization Address [facility] Co de Phone Number [facility] DPT OF LAB MED AND PAT+ [address] [place] [address] * (ABNORMAL) LDH (05/07/2025 1:54 PM EDT) Pathologist [facility] LDH 250(H) 135 - 225 U/L [facility] LIC# [id number] Blood 05/07/2025 1:54 PM EDT 05/07/2025 2:14 PM EDT us Cristian Black MD LAB BLOOD ORDERABLES Fi nal Result Performing Organization Address City/[facility] Co de Phone Number [facility] LIC# [id number] [address] [place] [address] * (ABNORMAL) Interleukin 6 (05/07/2025 1:54 PM EDT) Interleukin 6 11.6(H) <7.1 pg/mL [facility] Comment: Blood 05/07/2025 1:54 PM EDT 05/07/2025 2:15 PM EDT Cristian Black MD LAB BLOOD ORDERABLES Fi nal Result Performing Organization Address [facility] Co de Phone Number [facility] [address] [place] [address] * (ABNORMAL) Immunoglobulins IgG, IgA, IgM (05/07/2025 1:54 PM EDT) IMMUNOGLOBULIN G 544(L) 700 - 1,600 mg/dL [facility] IgA 283 70 - 400 mg/dL [facility] IMMUNOGLOBULIN M 157 40 - 230 mg/dL [facility] Blood 05/07/2025 1:54 PM EDT 05/07/2025 2:15 PM EDT Cristian Black MD LAB BLOOD ORDERABLES Fi nal Result Performing Organization Address [facility] de Phone Number [facility] [address] [place] [address] * (ABNORMAL) Comprehensive metabolic panel (05/07/2025 1:54 PM EDT) Only the most recent of2 resultswithin the time period is included. SODIUM 142 136 - 145 mmol/L [facility] LIC# [id number] POTASSIUM 3.4 3.4 - 5.1 mmol/L [facility] LIC# [id number] CHLORIDE 98 98 - 107 mmol/L [facility] LIC# [id number] CO2 25 22 - 31 mmol/L [facility] LIC# [id number] BUN 4(L) 6 - 23 mg/dL [facility] LIC# [id number] CREATININE 0.63 0.50 - 1.20 mg/dL [facility] LIC# [id number] GLUCOSE 98 70 - 100 mg/dL [facility] LIC# [id number] ALBUMIN 3.8 3.5 - 5.2 g/dL [facility] LIC# [id number] TOTAL PROTEIN 6.3(L) 6.4 - 8.3 g/dL [facility] LIC# [id number] CALCIUM 8.7(L) 8.8 - 10.7 mg/dL [facility] LIC# [id number] ALKALINE PHOSPHATASE 152(H) 40 - 129 U/L [facility] LIC# [id number] TOTAL BILIRUBIN 0.5 0.2 - 1.2 mg/dL [facility] LIC# [id number] AST 48(H) <41 U/L [facility] LIC# [id number] ALT 34 <42 U/L [facility] LIC# [id number] GLOBULIN 2.5 2.3 - 4.2 g/dL [facility] LIC# [id number] EGFR 116 >59 mL/min/1.7 3m2 [facility] LIC# [id number] Comment:Estimated glomerular filtration rate calculated using the CKD-EPI refit equation. ANION GAP 19(H) 7 - 17 mmol/L [facility] LIC# [id number] Blood 05/07/2025 1:54 PM EDT 05/07/2025 2:14 PM EDT Cristian Black MD LAB BLOOD ORDERABLES Fi nal Result Performing Organization Address [facility] Co de Phone Number [facility] LIC# [id number] [address] [place] [address] * HIV-1/2 antigen/antibody (05/07/2025 1:54 PM EDT) HIV 1/2 AB/AG Nonreactive Nonreactive [facility] Comment:No HIV 1/2 antibody or HIV 1 antigen detected. Blood 05/07/2025 1:54 PM EDT 05/07/2025 2:14 PM EDT Cristian Black MD LAB BLOOD ORDERABLES Fi nal Result [facility] [address] [place] [address] * HIV-1 viral load (PCR) (05/07/2025 1:54 PM EDT) [facility] HIV-1 RNA QUANT Undetected Undetected COPIES/ML [facility] Comment: (NOTE) Result in log copies/mL is Undetected. ADDITIONAL INFORMATION The quantification range of this assay is 20 to 10,000,000 copies/mL (1.30 log to 7.00 log copies/mL). Testing was performed using the linn HIV-1 test ([employer] Blood (Blood) 05/07/2025 1:5 4 PM EDT 05/07/2025 2:15 PM EDT us Cristian Black MD NON CULTURE MICROBIOLOG Y Final Result Performing Organization Address [facility] Co de Phone Number [facility] MED/[facility] [address] [place] [address] * Hepatitis C antibody, qualitative (05/07/2025 1:54 PM EDT) [facility] HCV Nonreactive Nonreactive [facility] LIC# [id number] Comment:Antibodies to HCV no t detected. Does not exclude the possibility of exposure to HCV. Blood 05/07/2025 1:54 PM EDT 05/07/2025 2:15 PM EDT us Cristian Black MD LAB BLOOD ORDERABLES Fi nal Result Performing Organization Address [facility] Co de Phone Number [facility] LIC# [id number] [address] [place] [address] * Martell-Wyman virus (EBV) PCR, blood (05/07/2025 1:54 PM EDT) [facility] EBV Blood, PCR Undetected Undetected IU/mL [facility] Comment: (NOTE) Result in log IU/mL is Undetected. ADDITIONAL INFORMATION The quantification range of this assay is 35 to 100,000,000 IU/mL (1.54 log to 8.00 log IU/mL). Testing was performed using the linn EBV test ([employer] Blood (Blood) 05/07/2025 1:5 4 PM EDT 05/07/2025 2:15 PM EDT Cristian Black MD NON CULTURE MICROBIOLOG Y Final Result Performing Organization Address [facility] Co de Phone Number [facility] [address] [place] [address] * Hepatitis B core antibody, total (05/07/2025 1:54 PM EDT) [facility] HEP B CORE AB, TOT Nonreactive Nonreactive [facility] LIC# [id number] Comment:Antibodies to HBc we re not detected, does not exclude the possibility of exposure to HBV. Blood 05/07/2025 1:54 PM EDT 05/07/2025 2:15 PM EDT Cristian Black MD LAB BLOOD ORDERABLES Fi nal Result Performing Organization Address [facility] Co de Phone Number [facility] LIC# [id number] [address] [place] [address] * Cytomegalovirus (CMV) PCR, blood (05/07/2025 1:54 PM EDT) Pathologist [facility] CMV VIRAL LOAD TARGET NOT DETECTED TARGET NOT DETECTED IU/mL [facility] CMV Viral Load Log 10 TARGET NOT DETECTED TARGET NOT DETECTED log IU/mL [facility] Comment: NO VIRAL DNA DETECTED ASSAY RANGE: 35-10,000,000 IU/mL (1.54 log - 7 log IU/mL) Blood (Blood) 05/07/2025 1:5 4 PM EDT 05/07/2025 2:13 PM EDT us Cristian lBack MD NON CULTURE MICROBIOLOG Y Final Result [facility] [address] [place] [address] * Hepatitis B surface antigen (05/07/2025 1:54 PM EDT) HBV SURFACE ANTIGEN Nonreactive Nonreactive [facility] LIC# [id number] Comment:HBsAg not detected , does not exclude the possibility of exposure to HBV. Blood 05/07/2025 1:54 PM EDT 05/07/2025 2:15 PM EDT us Cristian Black MD LAB BLOOD ORDERABLES Fi nal Result Performing Organization Address [facility] Co de Phone Number [facility] LIC# [id number] [address] [place] [address] * (ABNORMAL) Urinalysis (05/07/2025 1:54 PM EDT) COLOR LT YELLOW(A) Yellow [facility] LIC# [id number] CLARITY Clear Clear [facility] LIC# [id number] GLUCOSE NORMAL NORMAL [facility] LIC# [id number] BILI Negative Negative [facility] LIC# [id number] KETONES Negative Negative [facility] LIC# [id number] SPECIFIC GRAVITY 1.004 1.003 - 1.035 [facility] LIC# [id number] BLOOD Negative Negative [facility] LIC# [id number] PH 6.0 4.6 - 8.0 [facility] LIC# [id number] Protein-UA Negative Negative [facility] LIC# [id number] UROBILINOGEN NORMAL NORMAL [facility] LIC# [id number] NITRITE Negative Negative [facility] LIC# [id number] Leukocyte esterase, ur Negative Negative [facility] LIC# [id number] WBC None 0 - 9 /hpf [facility] LIC# [id number] RBC None 0 - 2 /hpf [facility] LIC# [id number] BACTERIA None None /hpf [facility] LIC# [id number] SQUAMOUS CELLS <1(A) None /hpf [facility] LIC# [id number] Urine (Urine) 05/07/2025 1:5 4 PM EDT 05/07/2025 2:12 PM EDT us Cristian Black MD URINE ORDERABLES Final Result Performing Organization Address [facility] Co de Phone Number [facility] LIC# [id number] [address] [place] [address] * PTT (05/07/2025 1:54 PM EDT) APTT 27.5 22.7 - 35.9 sec [facility] LIC# [id number] Blood 05/07/2025 1:54 PM EDT 05/07/2025 2:14 PM EDT us Cristian Black MD LAB BLOOD ORDERABLES Fi nal Result Performing Organization Address [facility] Co de Phone Number [facility] LIC# [id number] [address] [place] [address] * (ABNORMAL) PT-INR (05/07/2025 1:54 PM EDT) PT 15.0(H) 12.1 - 14.8 sec [facility] LIC# [id number] INR 1.2(H) 0.9 - 1.1 [facility] LIC# [id number] Blood 05/07/2025 1:54 PM EDT 05/07/2025 2:14 PM EDT us Cristian Black MD LAB BLOOD ORDERABLES Fi nal Result Performing Organization Address [facility] Co de Phone Number [facility] LIC# [id number] [address] [place] [address] * C-Reactive Protein (05/07/2025 1:54 PM EDT) Only the most recent of2 resultswithin the time period is included. C REACTIVE PROTEIN 3.8 0.0 - 10.0 mg/L [facility] LIC# [id number] Blood 05/07/2025 1:54 PM EDT 05/07/2025 2:14 PM EDT Cristian Black MD LAB BLOOD ORDERABLES Fi nal Result Performing Organization Address [facility] Co de Phone Number [facility] LIC# [id number] [address] [place] [address] * (ABNORMAL) Uric acid (05/07/2025 1:54 PM EDT) URIC ACID 8.7(H) 3.4 - 7.0 mg/dL [facility] LIC# [id number] Blood 05/07/2025 1:54 PM EDT 05/07/2025 2:14 PM EDT Cristian Black MD LAB BLOOD ORDERABLES Fi nal Result Performing Organization Address [facility] Co de Phone Number [facility] LIC# [id number] [address] [place] [address] * Phosphorus (05/07/2025 1:54 PM EDT) Only the most recent of2 resultswithin the time period is included. PHOSPHORUS 3.9 2.5 - 4.5 mg/dL [facility] LIC# [id number] Blood 05/07/2025 1:54 PM EDT 05/07/2025 2:14 PM EDT us Cristian Black MD LAB BLOOD ORDERABLES Fi nal Result Performing Organization Address City/[facility] Co de Phone Number [facility] LIC# [id number] [address] [place] [address] * Magnesium (05/07/2025 1:54 PM EDT) Only the most recent of2 resultswithin the time period is included. MAGNESIUM 1.8 1.7 - 2.6 mg/dL [facility] LIC# [id number] Blood 05/07/2025 1:54 PM EDT 05/07/2025 2:14 PM EDT us Cristian Black MD LAB BLOOD ORDERABLES Fi nal Result Performing Organization Address [facility] Co de Phone Number [facility] LIC# [id number] [address] [place] [address] * Lipase (05/07/2025 1:54 PM EDT) LIPASE 24 13 - 60 U/L [facility] LIC# [id number] Blood 05/07/2025 1:54 PM EDT 05/07/2025 2:14 PM EDT Cristian Black MD LAB BLOOD ORDERABLES Fi nal Result Performing Organization Address [facility] Co de Phone Number [facility] LIC# [id number] [address] [place] [address] * Ferritin (05/07/2025 1:54 PM EDT) Only the most recent of2 resultswithin the time period is included. FERRITIN 327 30 - 400 ug/L [facility] LIC# [id number] Blood 05/07/2025 1:54 PM EDT 05/07/2025 2:14 PM EDT us Cristian Black MD LAB BLOOD ORDERABLES Fi nal Result Performing Organization Address [facility] Co de Phone Number [facility] LIC# [id number] [address] [place] [address] * Bilirubin, direct (05/07/2025 1:54 PM EDT) DIRECT BILIRUBIN 0.2 0.0 - 0.3 mg/dL [facility] LIC# [id number] Blood 05/07/2025 1:54 PM EDT 05/07/2025 2:14 PM EDT Cristian Black MD LAB BLOOD ORDERABLES Fi nal Result Performing Organization Address [facility] Co de Phone Number [facility] LIC# [id number] [address] [place] [address] * Amylase (05/07/2025 1:54 PM EDT) AMYLASE 38 28 - 100 U/L [facility] LIC# [id number] Blood 05/07/2025 1:54 PM EDT 05/07/2025 2:14 PM EDT Crsitian Black MD LAB BLOOD ORDERABLES Fi nal Result Performing Organization Address [facility] Co de Phone Number [facility] LIC# [id number] [address] [place], [place] [id number] * CT CHEST WITH CONTRAST (04/25/2025 2:05 PM EDT) Anatomical Region Laterality Modality Chest Computed Tomogra phy Other 04/26/2025 11:2 8 AM EDT Impressions 04/26/2025 12:01 PM EDT 1. No evidence of metastatic disease in the chest. 2. Resolving bibasilar groundglass opacities, were likely inflammatory. Narrative 04/26/2025 12:[address] CHEST WITH CONTRAST Referring clinician's provided indication for this examination in Epic: * Rectal cancer, metastatic; restaging met rectal cancer TECHNIQUE: Multidetector CT of the chest was performed with intravenous contrast using tailored dose modulation techniques. COMPARISON: NM PET CT SCALP TO TOES FINDINGS: Devices/Tubes/Lines: Right internal jugular port catheter terminates at the superior cavoatrial junction. Lungs: No new suspicious nodule. Scattered calcified granulomas. No suspicious pulmonary nodule. Resolved ill-defined subpleural lower lobe ground glass opacities, more likely inflammatory. Pleura: No pleural effusion or pneumothorax. Mediastinum: Heart is normal in size. No pericardial effusion. Moderate coronary atherosclerotic calcifications. Lymph Nodes: Similarly prominent subcentimeter multiple paraesophageal, subcarinal, and bilateral interlobar lymph nodes (2:68, 69, 89), which were not FDG avid on recent PET/CT. Upper Abdomen: Please see concurrent abdominal CT for abdominal findings. Chest Wall: Similar mild to moderate right and mild left gynecomastia. Bones: No suspicious osseous lesion. Procedure Note Linda Patel MD - 04/26/2025 CT CHEST WITH CONTRAST Referring clinician's provided indication for this examination in Epic: *Rectal cancer, metastatic; restaging met rectal cancer TECHNIQUE: Multidetector CT of the chest was performed with intravenouscontrast using tailored dose modulation techniques. COMPARISON: NM PET CT SCALP TO TOES 2024- FINDINGS: Devices/Tubes/Lines: Right internal jugular port catheter terminates atthe superior cavoatrial junction. Lungs: No new suspicious nodule. Scattered calcified granulomas. Nosuspicious pulmonary nodule. Resolved ill-defined subpleural lower lobeground glass opacities, more likely inflammatory. Pleura: No pleural effusion or pneumothorax. Mediastinum: Heart is normal in size. No pericardial effusion. Moderatecoronary atherosclerotic calcifications. Lymph Nodes: Similarly prominent subcentimeter multiple paraesophageal,subcarinal, and bilateral interlobar lymph nodes (2:68, 69, 89), whichwere not FDG avid on recent PET/CT. Upper Abdomen: Please see concurrent abdominal CT for abdominalfindings. Chest Wall: Similar mild to moderate right and mild left gynecomastia. Bones: No suspicious osseous lesion. IMPRESSION: 1. No evidence of metastatic disease in the chest. 2. Resolving bibasilar groundglass opacities, were likely inflammatory. us Cristian Black MD IMG CT CHEST Final R esult * CT ABDOMEN/PELVIS WITH CONTRAST (04/25/2025 2:05 PM EDT) Anatomical Region Laterality Modality Abdomen, Pelvis Computed Tomogra phy Other 04/25/2025 2:20 PM EDT Impressions 04/25/2025 5:18 PM EDT 1. Similar tumor burden, characterized by hepatic and daniel metastases and pelvic nodularity. ATTESTATION: Alejandra Aranda, as teaching physician have reviewed the images, if any, for this patient's exam, and if necessary, have edited the report originally created by Mar Miner. Narrative 04/25/2025 5:[address] ABDOMEN/PELVIS WITH CONTRAST Referring clinician's provided indication for this examination in Epic: * Rectal cancer, metastatic; restaging met rectal cancer Review of the Electronic Medical Record reveals an additional history of: Biopsy-proven metastatic rectal cancer post anterior resection with coloanal anastomosis, diverting loop ileostomy and partial left hepatectomy (02/16/2024). Increasing tumor markers. TECHNIQUE: Multidetector-row CT of the abdomen and pelvis was performed after administration of intravenous contrast using tailored dose modulation techniques. Images were reconstructed in the axial, coronal, and sagittal planes. COMPARISON: CT ABDOMEN/PELVIS WITH CONTRAST ; MRI ABDOMEN (LIVER) WITH AND WITHOUT CONTRAST FINDINGS: Lower Chest: CT chest from the same day is reported separately. Liver: Liver lesions are also compared to MRI of 02/15/2025 since they are better marginated on that exam than on 02/28/2025 CT. Similar hypoattenuating hepatic lesions, for example: * 2.6 x 2.2 cm lesion in the hepatic dome (2:6). * 3.0 x 2.5 cm lesion in segment 2 (2:14). * 1.6 x 1.5 cm segment 1 lesion (2:19). No new focal lesions. Biliary: Contracted gallbladder. No focal intrahepatic biliary ductal dilatation in segment 2 (4:45). Spleen: No splenomegaly or focal lesions. Pancreas: No masses or ductal dilatation. Adrenal Glands: No nodules. Kidneys/Ureters: No solid masses, stones, or hydronephrosis. Bowel: Post low anterior resection with patent coloanal anastomosis. Patent small bowel anastomosis in the right lower quadrant. No distention or wall thickening. Peritoneum/Retroperitoneum: Similar presacral soft tissue and fluid, measuring up to 1.5 cm (2:76) with difficulty visualizing focal nodular enhancement, better evaluated of 02/15/2025. Similar peritoneal and pelvic nodules, for example: * 0.8 cm nodule in the right paracolic gutter (2:49) with no FDG uptake on the PET/CT of 12/31/2024, however new since 11/2023. * 1.5 x 1.0 cm right perirectal nodule (2:84), with increased FDG uptake on the PET/CT of 02/28/2025 * Similar 0.9 cm focal nodularity along the posterior right seminal vesicle (2:80). No pneumoperitoneum or fluid. Lymph Nodes: Unchanged 0.5 x 0.7 cm left common iliac node (2:57), with increased FDG uptake on the PET/CT of 02/28/2025. Pelvic Organs/Bladder: Urinary bladder is partially filled. Prostate is nonenlarged. Vessels: No abdominal aortic aneurysm. Bones/Soft Tissues: No destructive osseous lesions. Surgical changes in the anterior abdominal wall. Procedure Note Alejandra Smith MD - 04/25/2025 CT ABDOMEN/PELVIS WITH CONTRAST Referring clinician's provided indication for this examination in Epic: *Rectal cancer, metastatic; restaging met rectal cancer Review of the Electronic Medical Record reveals an additional history of:Biopsy-proven metastatic rectal cancer post anterior resection withcoloanal anastomosis, diverting loop ileostomy and partial lefthepatectomy (02/16/2024). Increasing tumor markers. TECHNIQUE: Multidetector-row CT of the abdomen and pelvis was performedafter administration of intravenous contrast using tailored dosemodulation techniques. Images were reconstructed in the axial, coronal,and sagittal planes. COMPARISON: CT ABDOMEN/PELVIS WITH CONTRAST ; MRI ABDOMEN(LIVER) WITH AND WITHOUT CONTRAST FINDINGS: Lower Chest: CT chest from the same day is reported separately. Liver: Liver lesions are also compared to MRI of 02/15/2025 since they arebetter marginated on that exam than on 02/28/2025 CT. Similarhypoattenuating hepatic lesions, for example: * 2.6 x 2.2 cm lesion in the hepatic dome (2:6). * 3.0 x 2.5 cm lesion in segment 2 (2:14). * 1.6 x 1.5 cm segment 1 lesion (2:19). No new focal lesions. Biliary: Contracted gallbladder. No focal intrahepatic biliary ductaldilatation in segment 2 (4:45). Spleen: No splenomegaly or focal lesions. Pancreas: No masses or ductal dilatation. Adrenal Glands: No nodules. Kidneys/Ureters: No solid masses, stones, or hydronephrosis. Bowel: Post low anterior resection with patent coloanal anastomosis.Patent small bowel anastomosis in the right lower quadrant. No distentionor wall thickening. Peritoneum/Retroperitoneum: Similar presacral soft tissue and fluid,measuring up to 1.5 cm (2:76) with difficulty visualizing focal nodularenhancement, better evaluated of 02/15/2025. Similar peritoneal and pelvicnodules, for example: * 0.8 cm nodule in the right paracolic gutter (2:49) with no FDG uptakeon the PET/CT of 12/31/2024, however new since 11/2023. * 1.5 x 1.0 cm right perirectal nodule (2:84), with increased FDG uptakeon the PET/CT of 02/28/2025 * Similar 0.9 cm focal nodularity along the posterior right seminalvesicle (2:80). No pneumoperitoneum or fluid. Lymph Nodes: Unchanged 0.5 x 0.7 cm left common iliac node (2:57), withincreased FDG uptake on the PET/CT of 02/28/2025. Pelvic Organs/Bladder: Urinary bladder is partially filled. Prostate isnonenlarged. Vessels: No abdominal aortic aneurysm. Bones/Soft Tissues: No destructive osseous lesions. Surgical changes inthe anterior abdominal wall. IMPRESSION: 1. Similar tumor burden, characterized by hepatic and daniel metastasesand pelvic nodularity. ATTESTATION: Alejandra Aranda, as teaching physician have reviewedthe images, if any, for this patient's exam, and if necessary, have editedthe report originally created by Mar Miner. us Cristian Black MD IMG CT ABD/PELVIS Final Result * (ABNORMAL) Carcinoembryonic antigen (CEA) (04/25/2025 12:55 PM EDT) CEA 6.3(H) 0 - 3.7 ng/mL [facility] LIC# [id number] Comment: CEA REFERENCE RANGE: NON-SMOKERS: < 3.8 ng/mL SMOKERS: < 5.0 ng/mL Blood 04/25/2025 12:5 5 PM EDT 04/25/2025 1:12 PM EDT us Cristian Black MD LAB BLOOD ORDERABLES Fi nal Result [facility] LIC# [id number] [address] [place] [address] from Last [address] [place] [address] POS [facility] POS [facility] POS [facility] POS [facility] POS Advance Directives For more information, please contact: [phone] (9AM - 5PM Jael/[facility], Wednesday-Wednesday) Documents on File Type Date Recorded Patient Simulation Engineer Expl anation Healthcare Proxy 02/16/2024 * Full Code (Latest Code Status on File) Date Activated Date Inactivated Comments 02/20/2024 8:54 AM Question Answer Comments Code Status Confirmed With: Patient * Full Code Date Activated Date Inactivated Comments 02/16/2024 8:46 AM 02/20/2024 8:53 AM Question Answer Comments Code Status Confirmed With: Patient Care Teams Field Marketing Specialist Relationship Specialty Start Date End Date Denis Issa MD 222 [facility] 301 [place] [address] PCP - General Internal Medicine 08/05/23 August Tolliver MD 175 [facility] 110 [place] [address] General Surgery 08/05/23 Teri Nova MD 450 [place] [address] [email or web address] Medical Oncology 08/27/23 Willian Moss MD [address] [place] [address] [email or web address] Surgical Oncology 10/13/23 Guerita Madrid MD [address] [facility] 3rd [place] [address] [email or web address] Surgery 10/13/23 Quynh Chapman MD [address] [place] [id number] [email or web address] Internal Medicine 10/13/23 Guerita Clayton MD [address] [place] [address] [email or web address] Radiation Oncology 10/13/23 Conchita Almaraz MD [address] [place] [address] [email or web address] Internal Medicine 10/13/23 Additional Source Comments The information contained in this document represents components of the legal health record. It is not the complete legal health record.[facility]
--- OUTSIDE RECORDS SUMMARY | 2025-07-14 07:24 | XMS_ITS | Encounter Summary ---
Author Organization [facility] Address [address] [facility] [address] [place] [address] Phone Care Team Providers Care Associate Account Manager Name Role Phone Denis Issa MD Primary Care Provider [phone] August Tolliver MD Unavailable [phone] Teri Nova MD Unavailable [phone] Willian Moss MD Unavailable [phone] Guerita Madrid MD Unavailable Quynh Chapman MD Unavailable [phone] Guerita Clayton MD Unavailable Conchita Almaraz MD Unavailable [phone] Encounter Details Date Type Department Care Team (Late st Contact Info) Description 02/16/2025 Procedure Pass [facility] Imaging [facility], [facility] [place] [place] [address] [facility], Floor [address] [place] [address] Social History Tobacco Use Types Packs/Day [...] high school, GED, job training, learning the [place] language, technical skills, or developing parenting skills)? [...] st Contact Info) Description 05/21/2025 Procedure Pass [facility] [place] Imaging Department, [facility], [place] [address] [facility], Floor [address] [place] [address] 05/21/2025 Procedure Pass [facility] [place] Imaging Department, [facility] [place] [address] [facility], [address] [place] [address] 07/31/2025 7:40 AM EDT Appointment [facility] [place] Imaging Department, [facility], [place] [address] [facility], [address] [place] [address] Cristian Black MD [address] [place] [address] Geoff [email or web address] 07/31/2025 12:00 PM EDT Office [facility], [address], 10th [place] [address] Cristian Black MD [address] [place] [address] Geoff [email or web address] documented as of this encounter Visit Diagnoses Not on filedocumented in this encounter Care Teams Associate Account Manager Relationship Specialty Start Date End Date Denis Issa MD 222 [facility] 301 [place] [address] PCP - General Internal Medicine 08/05/23 August Tolliver MD 175 [facility] 110 [place] [address] General Surgery 08/05/23 Teri Nova MD 450 [place] [address] [email or web address] Medical Oncology 08/27/23 Willian Moss MD [address] [place] [address] [email or web address] Surgical [email or web address] 10/13/23 Guerita Madrid MD [address] [place] [address] [place] [address] [email or web address] Gastrointestinal Surgery 10/13/23 Quynh Chapman MD [address] [place] [address] Landy@ [email or web address] Internal Medicine 10/13/23 Guerita Clayton MD [address] [place] [address] [email or web address] Radiation Oncology 10/13/23 Conchita Almaraz MD [address] [place] [address] [email or web address] Internal Medicine 10/13/23 documented as of this encounter Additional Source Comments The information contained in this document represents components of the legal health record. It is not the complete legal health record.[facility]
--- OUTSIDE RECORDS SUMMARY | 2025-07-14 07:24 | XMS_ITS | Encounter Summary ---
Author Organization [facility] Address [address] [facility] [address] [place] [address] Phone Care Team Providers Care Marketing Analyst Name Role Phone Denis Issa MD Primary Care Provider [phone] August Tolliver MD Unavailable Teri Nova MD Unavailable [phone] Willian Moss MD Unavailable [phone] Guerita Madrid MD Unavailable [phone] Quynh Chapman MD Unavailable [phone] Guerita Clayton MD Unavailable [phone] Conchita Almaraz MD Unavailable [phone] Encounter Details Date Type Department Care Team (Late st Contact Info) Description 06/21/2024 Procedure Pass [facility] [employer] [place] [address] [place] [address] Social History Tobacco Use Types Packs/Day Years [...] Contact Info) Description 05/21/2025 Procedure Pass [facility], [facility] [place], [place] [address] [facility], Floor [address]1 [place] [address] 05/21/2025 Procedure Pass [facility] Imaging Department, [facility] [place], [place] [address] [facility], Floor [address] [place] [address] 07/31/2025 7:40 AM EDT Appointment [facility] Imaging Department, [facility], [place] [address] [facility], [address] [place] [address] Cristian Black MD 450 [place] [address] Geoff [email or web address] 07/31/2025 12:00 PM EDT Office Visit [facility], [address], 10th [place] [address] Cristian Black MD 450 [place] [address] Geoff [email or web address] documented as of this encounter Visit Diagnoses Not on filedocumented in this encounter Care Teams Marketing Analyst Relationship Specialty Start Date End Date Denis Issa MD 222 [facility] 301 [place] [address] PCP - General Internal Medicine 08/05/23 August Tolliver MD 175 [facility] 110 [place] [address] General Surgery 08/05/23 Teri Nova MD [address] [place] [address] [email or web address] Medical Oncology 08/27/23 Willian Moss MD [address] [place] [address] [email or web address] Surgical Oncology 10/13/23 Guerita Madrid MD [address] [place] [address] [email or web address] Gastrointestinal Surgery 10/13/23 Quynh Chapman MD 271 [place] [phone] Landy@ [email or web address] Internal Medicine 10/13/23 Guerita Clayton MD [address] [place] [address] [email or web address] Radiation Oncology 10/13/23 Conchita Almaraz MD [address] [place] [address] [email or web address] Internal Medicine 10/13/23 documented as of this encounter Additional Source Comments The information contained in this document represents components of the legal health record. It is not the complete legal health record[facility]
--- OUTSIDE RECORDS SUMMARY | 2025-07-14 07:24 | XMS_ITS | Encounter Summary ---
Author Organization [facility] Address [address] [facility] [address] [place] [address] Phone Care Team Providers Care Electrochemist Name Role Phone Denis Issa MD Primary Care Provider [phone] August Tolliver MD Unavailable Teri Nova MD Unavailable [phone] Willian Moss MD Unavailable [phone] Guerita Madrid MD Unavailable [phone] Quynh Chapman MD Unavailable [phone] Guerita Clayton MD Unavailable Conchita Almaraz MD Unavailable [phone] Encounter Details Date Type Department Care Team (Late st Contact Info) Description 12/09/2023 [facility], MRI [address] [facility] 4th [place] [address] Social History Tobacco Use Types Packs/Day Years Used Date Smoking Tobacco: Former Cigars Smokeless Tobacco: Never Comments:Cigar on special [...] high school, GED, job training, learning the Mongolian language, technical skills, or developing parenting skills)? No 09/04/2023 Are you concerned about learning? Not on file 09/04/2023 No 09/04/2023 Yes 09/04/2023 Food Answer Date Recorded Within the past 6 months we worried whether our food would run out before we got money to buy more. Never True 09/04/2023 Within the past 6 months the food we bought just didn't last and we didn't have enough money to get more. Never True Residential Stability Answer Date Recor ded What is your housing situation today? I have [facility] 09/04/2023 How many times have you move d in the past 12 months? Zero (I did not move) 09/04/2023 Paying for Meds Answer Date Recorded Do you have trouble paying for medicines? No 09/04/2023 Paying Utility Bills Answer Date Record ed Do you have trouble paying your heating or elect ricity bill? No 09/04/2023 Transportation Answer Date Recorded Has the lack of transportati on kept you from medical appointments or from getting medications? No 09/04/2023 Digital Access Answer Date Recorded No 08/05/2023 No 08/05/2023 Reliable internet access at home? Not on file 08/05/2023 Device with a working camera? Not on file Sex and Gender Information Value Date Recorded Sex Assigned at Male 08/05/2023 1:17 PM EDT Legal Sex Male 9:29 PM EDT Gender Identity Male 08/05/2023 1:17 PM EDT Sexual Orientation Straight 08/05/2023 1: 17 PM EDT documented as of this encounter Plan of Treatment Upcoming Encounters Date Type Department Care Team (Late st Contact Info) Description 05/21/2025 Procedure Pass [facility] Imaging Department, [facility] [place], [place] [address] [facility], Floor [address]1 [place] [address] 05/21/2025 Procedure Pass [facility] Imaging Department, [facility] [place], [place] [address] [facility], Floor [address]1 [place] [address] 07/31/2025 7:40 AM EDT Appointment [facility] Imaging Department, [facility], [place] [address] [facility], Floor [address]1 [place] [address] Cristian Black MD 450 [place] [address] Geoff contreras@[email or web address] 07/31/2025 12:00 PM EDT Office Visit [facility], [facility] [address] [facility], 10th [place] [address] Cristian Black MD 450 [place] [address] Geoff [email or web address] documented as of this encounter Visit Diagnoses Not on filedocumented in this encounter Care Teams Electrochemist Relationship Specialty Start Date End Date Denis Issa MD 222 [facility] 301 [place] [address] PCP - General Internal Medicine 08/05/23 August Tolliver MD 175 [facility] 110 [place] [address] General Surgery 08/05/23 Teri Nova MD [address] [place] [address] Jocelyn@[facility] Medical Oncology 08/27/23 Willian Moss MD [address] [place] [address] [email or web address] Surgical Oncology 10/13/23 Guerita Madrid MD [address] [place] [address] 3rd [place] [address] [email or web address] Gastrointestinal Surgery 10/13/23 Quynh Chapman MD 271 [place] [phone] Landy@ [facility] Internal Medicine 10/13/23 Guerita Clayton MD 271 [place] [address] [email or web address] Radiation Oncology 10/13/23 Conchita Almaraz MD [address] [place] [address] [email or web address] Internal Medicine 10/13/23 documented as of this encounter Additional Source Comments The information contained in this document represents components of the legal health record. It is not the complete legal health record.[facility]
--- OUTSIDE RECORDS SUMMARY | 2025-07-14 07:24 | XMS_ITS | Encounter Summary ---
Author Organization [facility] Address [address] [place] [address] Phone Care Team Providers Care Pipe Coverer And Insulator Name Role Phone Denis Issa MD Primary Care Provider [phone] August Tolliver MD Unavailable Teri Nova MD Unavailable [phone] Willian Moss MD Unavailable [phone] Guerita Madrid MD Unavailable Quynh Chapman MD Unavailable [phone] Guerita Clayton MD Unavailable Conchita Almaraz MD Unavailable [phone] Encounter Details Date Type Department Care Team (Late st Contact Info) Description 05/17/2025 Documentation [facility] Blood Donor Center [address] [facility] 1st [place] [address] Palma Venegas PA-C [address] [facility] Transfusion Med, [facility] [place] [address] [email or web address] Social History Tobacco Use Types Packs/Day Years [...] high school, GED, job training, learning the [place]serratian language, technical skills, or developing parenting skills)? [...] Apheresis Collection Suitability Name: ?Mitch Barton MRN: ?[id number] Indication: ?MNC research [id number] iso rectal adenocarcinoma [...] flutter, sick sinus syndrome, or ventricular arrhythmias, CAD/NE, CHF, HTN, heart valve disease, diastolic dysfunction, [...] records. Palma Venegas PA-C Transfusion Medicine [facility] Transfusion Medicine Pager: [phone] documented in this encounter Plan of Treatment Upcoming Encounters Date Type Department Care Team (Late st Contact Info) Description 05/21/2025 Procedure Pass [facility], [facility], [place] [address] [facility], Floor L1 [place] [address] 05/21/2025 Procedure Pass [facility] Department, [facility], [place] [address] [facility], Floor L1 [place] [address] 07/31/2025 7:40 AM EDT Appointment [facility], [facility], [place] [address] [facility], Floor L1 [place] [address] Cristian Black MD [address] [place] [address] Geoff [email or web address] 07/31/2025 12:00 PM EDT Office Visit [facility], [address], 10th [place] [address] Cristian Black MD [address] [place] [address] Geoff contreras@[email or web address] documented as of this encounter Visit Diagnoses Not on filedocumented in this encounter Care Teams Pipe Coverer And Insulator Relationship Specialty Start Date End Date Denis Issa MD 222 [facility] 301 [place] [address] PCP - General Internal Medicine 08/05/23 August Tolliver MD 175 [facility] 110 [place] [address] General Surgery 08/05/23 Teri Nova MD [address] [place] [address] [email or web address] Medical Oncology 08/27/23 Willian Moss MD [address] [place] [address] [email or web address] Surgical Oncology 10/13/23 Guerita Madrid MD [address] [place] [address] [place] [address] [email or web address] Gastrointestinal Surgery 10/13/23 Quynh Chapman MD 271 [place] [phone] Landy@ [facility] Internal Medicine 10/13/23 Guerita Clayton MD 271 [place] [address] [email or web address] Radiation Oncology 10/13/23 Conchita Almaraz MD [address] [place] [address] [email or web address] Internal Medicine 10/13/23 documented as of this encounter Additional Source Comments The information contained in this document represents components of the legal health record. It is not the complete legal health record.[facility]
--- OUTSIDE RECORDS SUMMARY | 2025-07-14 07:25 | XMS_ITS | Encounter Summary ---
Author Organization [facility] Address [address] [facility] [address] [place] [address] Phone Care Team Providers Care Business Services Tech Name Role Phone Denis Issa MD Primary Care Provider [phone] August Tolliver MD Unavailable Teri Nova MD Unavailable [phone] Willian Moss MD Unavailable Guerita Madrid MD Unavailable [phone] Quynh Chapman MD Unavailable [phone] Guerita Clayton MD Unavailable [phone] Conchita Almaraz MD Unavailable [phone] Encounter Details Date Type Department Care Team (Late st Contact Info) Description 09/06/2023 Ancillary Orders Outside Imaging Guerita Madrid MD [address] [place] [address] 3rd [place] [address] [email or web address] Social History Tobacco Use Types Packs/Day Years Used Date Smoking Tobacco: Never Smokeless Tobacco: Never Alcohol Use Standard Drinks/Week Comments Yes 2 (1 standard drink = 0.6 oz [...] high school, GED, job training, learning the [place] Islander language, technical skills, or developing parenting skills)? [...] Contact Info) Description 05/21/2025 Procedure Pass [facility], [facility] [place], [place] [address] [facility], Floor L1 [place] [address] 05/21/2025 [facility], [facility] [place], [place] [address] [facility], Floor L1 [place] [address] 07/31/2025 7:40 AM EDT Appointment [facility], [facility] [place] [address] [facility], Floor L1 [place] [address] Cristian Black MD 450 [place] [address] Geoff [email or web address]@[facility] 07/31/2025 12:00 PM EDT Office Visit [facility], [facility] [address] [facility], 10th [place] [address] Cristian Black MD 450 [place] [address] Geoff contreras@[facility] documented as of this encounter Results * CT Chest Outside (No Interpretation) (05/05/2023 12:05 AM EDT) Other Narrative FRANCES - 09/06/2023 9:03 AM EDT This study is for PACS storage only and not for interpretation. us Guerita Madrid MD IMG OUTSIDE IMAGING W/OUT INTERPRETATION Final Result Performing Organization Address City/State/[facility] Co de Phone Number [facility] documented in this encounter Visit Diagnoses Not on filedocumented in this encounter Care Teams Business Services Tech Relationship Specialty Start Date End Date Denis Issa MD 222 [facility] 301 [place] [address] PCP - General Internal Medicine 08/05/23 August Tolliver MD 175 [facility] 110 [place] [address] General Surgery 08/05/23 Teri Nova MD 450 [place] [address] Jocelyn@[email or web address] Medical Oncology 08/27/23 Willian Moss MD [address] [place] [address] [email or web address]@[email or web address] Surgical Oncology 10/13/23 Guerita Madrid MD [address] [place] [address] [place] [address] [email or web address] Gastrointestinal Surgery 10/13/23 Quynh Chapman MD [address] [place] [phone] Landy@ [facility] Internal Medicine 10/13/23 Guerita Clayton MD [address] [place] [address] [email or web address] Radiation Oncology 10/13/23 Conchita Almaraz MD [address] [place] [address] [email or web address] Internal Medicine 10/13/23 documented as of this encounter Additional Source Comments The information contained in this document represents components of the legal health record. It is not the complete legal health record.[facility]
--- OUTSIDE RECORDS SUMMARY | 2025-07-14 07:25 | XMS_ITS | Encounter Summary ---
Author Organization [facility] Address [address] [facility] [address] [place] [address] Phone Care Team Providers Care Marketing Traffic Coordinator Name Role Phone Denis Issa MD Primary Care Provider [phone] August Tolliver MD Unavailable [phone] Teri Nova MD Unavailable [phone] Willian Moss MD Unavailable [phone] Guerita Madrid MD Unavailable [phone] Quynh Chapman MD Unavailable [phone] Guerita Clayton MD Unavailable Conchita Almaraz MD Unavailable [phone] Encounter Details Date Type Department Care Team (Late st Contact Info) Description 12/14/2024 Procedure Pass [facility] Professor Of Pathology [place] [address] [place] [address] Social History Tobacco Use Types Packs/Day Years [...] high school, GED, job training, learning the Kuwaiti language, technical skills, or developing parenting skills)? [...] Info) Description 05/21/2025 Procedure Pass [facility] Imaging Department, [facility] [place] [address] [facility], Floor L1 [place] [address] 05/21/2025 Procedure Pass [facility] Imaging Department, [facility] [place] [address] [facility], Floor L1 [place] [address] 07/31/2025 7:40 AM EDT Appointment [facility] Imaging Department, [facility] [place] [address] [facility], Floor [address]1 [place] [address] Cristian Black MD [address] [place] [address] Geoff contreras@[email or web address] 07/31/2025 12:00 PM EDT Office Visit [facility], [address], 10th [place] [address] Cristian Black MD [address] [place] [address] Geoff contreras@[email or web address] documented as of this encounter Visit Diagnoses Not on filedocumented in this encounter Care Teams Marketing Traffic Coordinator Relationship Specialty Start Date End Date Denis Issa MD 222 [facility] 301 [place] [address] PCP - General Internal Medicine 08/05/23 August Tolliver MD 175 [facility] 110 [place] [address] General Surgery 08/05/23 Teri Nova MD 450 [place] [address] Jocelyn@[email or web address] Medical Oncology 08/27/23 Willian Moss MD [address] [place] [address] [email or web address] Surgical Oncology 10/13/23 Guerita Madrid MD [address] [place] [address] [place] [address] [email or web address] Gastrointestinal Surgery 10/13/23 Quynh Chapman MD [address] [place] [phone] Landy@ [facility] Internal Medicine 10/13/23 Guerita Clayton MD 271 [place] [address] [email or web address] Radiation Oncology 10/13/23 Conchita Almaraz MD [address] [place] [address] [email or web address] Internal Medicine 10/13/23 documented as of this encounter Additional Source Comments The information contained in this document represents components of the legal health record. It is not the complete legal health record.[facility]
--- OUTSIDE RECORDS SUMMARY | 2025-07-14 07:25 | XMS_ITS | Encounter Summary ---
Author Organization [facility] Address [address] [facility] [address] [place] [address] Phone Care Team Providers Care Customer Service Analyst Name Role Phone Denis Issa MD Primary Care Provider [phone] August Tolliver MD Unavailable [phone] Teri Nova MD Unavailable [phone] Willian Moss MD Unavailable [phone] Guerita Madrid MD Unavailable [phone] Quynh Chapman MD Unavailable [phone] Guerita Clayton MD Unavailable [phone] Conchita Almaraz MD Unavailable [phone] Encounter Details Date Type Department Care Team (Late st Contact Info) Description 12/14/2024 Procedure Pass [facility]'s Spanish Lecturer [place] 221 [place] [address] Social History Tobacco Use Types Packs/Day Years [...] high school, GED, job training, learning the Namibian language, technical skills, or developing parenting skills)? [...] st Contact Info) Description 05/21/2025 Procedure Pass [facility] Imaging Department, [facility], [place] [address] [facility], Floor L1 [place] [address] 05/21/2025 Procedure Pass [facility] Imaging Department, [facility], [place] [address] [facility], Floor L1 [place] [address] 07/31/2025 7:40 AM EDT Appointment [facility] Imaging Department, [facility], [place] [address] [facility], Floor L1 [place] [address] Cristian Black MD [address] [place] [address] Geoff [email or web address] 07/31/2025 12:00 PM EDT Office Visit [facility], [address], 10th [place] [address] Cristian Black MD [address] [place] [address] Geoff contreras@[email or web address] documented as of this encounter Visit Diagnoses Not on filedocumented in this encounter Care Teams Customer Service Analyst Relationship Specialty Start Date End Date Denis Issa MD 222 [facility] 301 [place] [address] PCP - General Internal Medicine 08/05/23 August Tolliver MD 175 [facility] 110 [place] [address] General Surgery 08/05/23 Teri Nova MD 450 [place] [address] Jocelyn@[facility] Medical Oncology 08/27/23 Willian Moss MD [address] [place] [address] [email or web address]@[facility] Surgical Oncology 10/13/23 Guerita Madrid MD [address] [place] [address] [place] [address] [email or web address] Gastrointestinal Surgery 10/13/23 Quynh Chapman MD [address] [place] [phone] Landy@ [facility] Internal Medicine 10/13/23 Guerita Clayton MD 271 [place] [address] [email or web address] Radiation Oncology 10/13/23 Conchita Almaraz MD [address] [place] [address] [email or web address] Internal Medicine 10/13/23 documented as of this encounter Additional Source Comments The information contained in this document represents components of the legal health record. It is not the complete legal health record.[facility]
--- OUTSIDE RECORDS SUMMARY | 2025-07-14 07:25 | XMS_ITS | Encounter Summary ---
Author Organization [facility] Address [address] [facility] [address] [place] [address] Phone Care Team Providers Care Maid Cleaning Cooking Name Role Phone Denis Issa MD Primary Care Provider [phone] August Tolliver MD Unavailable Teri Nova MD Unavailable [phone] Willian Moss MD Unavailable [phone] Guerita Madrid MD Unavailable [phone] Quynh Chapman MD Unavailable [phone] Guerita Clayton MD Unavailable [phone] Conchita Almaraz MD Unavailable [phone] Encounter Details Date Type Department Care Team (Latest Contact Info) Description 09/15/2023 Transcribe Orders Virtual Department 30 [place] [address] Conchita Almaraz MD 574 [place] [address] [email or web address] Liver disease, unspecified (Primary Dx) Social History Tobacco Use Types Packs/Day Years [...] high school, GED, job training, learning the Rwandan language, technical skills, or developing parenting skills)? [...] Info) Description 05/21/2025 Procedure Pass [facility] Imaging Department, [facility] [place], [place] [address] [facility], Floor L1 [place] [phone] 05/21/2025 Procedure Pass [facility] Imaging Department, [facility], [place] [address] [facility], Floor L1 [place] [address] 07/31/2025 7:40 AM EDT Appointment [facility] Imaging Department, [facility], [place] [address] [facility], Floor L1 [place] [address] Cristian Black MD [address] [place] [address] Geoff contreras@[facility] 07/31/2025 12:00 PM EDT Office Visit [facility], [address], 10th [place] [address] Cristian Black MD [address] [place] [address] Geoff contreras@[facility] documented as of this encounter Visit Diagnoses Diagnosis Liver disease, unspecified- Primary documented in this encounter Care Teams Maid Cleaning Cooking Relationship Specialty Start Date End Date Denis Issa MD [address] [address] PCP - General Internal Medicine 08/05/23 August Tolliver MD [address] [address] General Surgery 08/05/23 Teri Nova MD [address] [place] [address] [email or web address] Medical Oncology 08/27/23 Willian Moss MD [address] [place] [address] [email or web address] Surgical Oncology 10/13/23 Guerita Madrid MD [address] [place] [address] [email or web address] Gastrointestinal Surgery 10/13/23 Quynh Chapman MD 271 [place] [address] Landy@ [facility] Internal Medicine 10/13/23 Guerita Clayton MD 271 [place] [address] [email or web address] Radiation Oncology 10/13/23 Conchita Almaraz MD [address] [place] [address] [email or web address] [email or web address] [facility] Internal Medicine 10/13/23 documented as of this encounter Additional Source Comments The information contained in this document represents components of the legal health record. It is not the complete legal health record.[facility]
--- OUTSIDE RECORDS SUMMARY | 2025-07-14 07:25 | XMS_ITS | Encounter Summary ---
Author Organization [facility] Address 399 [facility] [address] [place] [address] Phone Care Team Providers Care Toll Line Repairer Name Role Phone Denis Issa MD Primary Care Provider [phone] August Tolliver MD Unavailable [phone] Teri Nova MD Unavailable [phone] Willian Moss MD Unavailable [phone] Guerita Madrid MD Unavailable [phone] Quynh Chapman MD Unavailable [phone] Guerita Clayton MD Unavailable [phone] Conchita Almaraz MD Unavailable [phone] Encounter Details Date Type Department Care Team (Late st Contact Info) Description 09/07/2023 Procedure Pass [facility], Ct Scan - [facility] 30 [place] [address] Social History Tobacco Use Types Packs/Day Years [...] high school, GED, job training, learning the Mexican language, technical skills, or developing parenting skills)? [...] Contact Info) Description 05/21/2025 Procedure Pass [facility] Imaging Department, [facility], [place] [address] [facility], Floor L1 [place] [address] 05/21/2025 Procedure Pass [facility] Imaging Department, [facility], [place] [address] [facility], Floor L1 [place] [address] 07/31/2025 7:40 AM EDT Appointment [facility] Imaging Department, [facility], [place] [address] [facility], Floor L1 [place] [address] Cristian Black MD 450 [place] [address] Geoff contreras@[facility] 07/31/2025 12:00 PM EDT Office Visit [facility], [facility] [address] [facility] [address] [facility], 10th [place] [address] Cristian Black MD [address] [place] [address] Geoff contreras@[facility] documented as of this encounter Visit Diagnoses Not on filedocumented in this encounter Care Teams Toll Line Repairer Relationship Specialty Start Date End Date Denis Issa MD 222 [facility] 301 [place] [address] PCP - General Internal Medicine 08/05/23 August Tolliver MD 175 [facility] 110 [place] [address] General Surgery 08/05/23 Teri Nova MD [address] [place] [address] Jocelyn@[facility] Medical Oncology 08/27/23 Willian Moss MD [address] [place] [address] [email or web address] Surgical Oncology 10/13/23 Guerita [place] MD [address] 3rd [place] [address] [email or web address] Gastrointestinal Surgery 10/13/23 Quynh Chapman MD 271 [place] [address] Landy@ [facility] Internal Medicine 10/13/23 Guerita [place] MD 271 [place] [address] [email or web address] Radiation Oncology 10/13/23 Conchita Almaraz MD 5 [place] [address] [email or web address] Internal Medicine 10/13/23 documented as of this encounter Additional Source Comments The information contained in this document represents components of the legal health record. It is not the complete legal health record.[facility]
--- OUTSIDE RECORDS SUMMARY | 2025-07-14 07:25 | XMS_ITS | Encounter Summary ---
Author Organization [facility] Address [address] [facility] [employer] [address] [place] [address] Phone Care Team Providers Care Customer Quality Engineer Name Role Phone Denis Issa MD Primary Care Provider [phone] August Tolliver MD Unavailable [phone] Teri Nova MD Unavailable [phone] Willian Moss MD Unavailable [phone] Guerita [place] MD Unavailable Quynh Chapman MD Unavailable [phone] Guerita Clayton MD Unavailable Conchita Almaraz MD Unavailable [phone] Encounter Details Date Type Department Care Team (Late st Contact Info) Description 04/30/2025 Procedure Pass [facility], [facility], MRI [address] [facility], Floor L1 [place] [address] Social History Tobacco Use Types Packs/Day [...] high school, GED, job training, learning the Montenegrin language, technical skills, or developing parenting skills)? [...] Contact Info) Description 05/21/2025 Procedure Pass [facility], [facility] [place] [address] [facility], Floor L1 [place] [address] 05/21/2025 Procedure Pass [facility], [facility] [place] [address] [facility], Floor L1 [place] [address] 07/31/2025 7:40 AM EDT Appointment [facility] Imaging [facility], [facility] [place] [address] [facility], Floor L1 [place] [address] Cristian Black MD [address] [place] [address] Geoff contreras@[facility] 07/31/2025 12:00 PM EDT Office Visit [facility], [address], 10th [place] [address] Cristian Black MD [address] [place] [address] Geoff contreras@[email or web address] documented as of this encounter Visit Diagnoses Not on filedocumented in this encounter Care Teams Customer Quality Engineer Relationship Specialty Start Date End Date Denis Issa MD 222 [facility] 301 [place] [address] PCP - General Internal Medicine 08/05/23 August Tolliver MD 175 [facility] 110 [place] [address] General Surgery 08/05/23 Teri Nova MD 450 [place] [address] Jocelyn@[facility] Medical Oncology 08/27/23 Willian Moss MD [address] [place] [address] [email or web address] Surgical Oncology 10/13/23 Guerita [place] MD [address] [place] [address] [place] [address] [email or web address] Gastrointestinal Surgery 10/13/23 Quynh Chapman MD 271 [place] [address] Landy@ [facility] Internal Medicine 10/13/23 Guerita Clayton MD 271 [place] [address] [email or web address]@[facility] Radiation Oncology 10/13/23 Conchita Almaraz MD [address] [place] [address] [email or web address] Internal Medicine 10/13/23 documented as of this encounter Additional Source Comments The information contained in this document represents components of the legal health record. It is not the complete legal health record.[facility]
--- OUTSIDE RECORDS SUMMARY | 2025-07-14 07:25 | XMS_ITS | Encounter Summary ---
Author Organization [facility] Address 399 [facility] [address] [place] [address] Phone Care Team Providers Care Set Up Mechanic Coating Machines Name Role Phone Denis Issa MD Primary Care Provider [phone] August Tolliver MD Unavailable Teri Nova MD Unavailable [phone] Willian Moss MD Unavailable [phone] Guerita [place] MD Unavailable [phone] Quynh Chapman MD Unavailable [phone] Guerita Clayton MD Unavailable [phone] Conchita Almaraz MD Unavailable [phone] Encounter Details Date Type Department Care Team (Late st Contact Info) Description 10/16/2024 Procedure Pass [facility] CT Imaging, [place] [address] [place] [address] Social History Tobacco Use Types Packs/Day Years [...] high school, GED, job training, learning the Czech language, technical skills, or developing parenting skills)? [...] Date of Assessment Author No Risk Indicated 10/17/2024 9:20 AM Jackelin Chavez, SALINA * Sierra Suicide Severity Rating Scale (Screener/Recent Self-Report) Question Answer Date of Assessment Author 1. Wish to be (Past 1 Month) No 10/17/2024 9:20 AM Jackelin Wang, SALINA 2. Non-Specific Active Suicidal Thoughts (Past 1 Month) No 10/17/2024 9:20 AM Jackelin Wang, SALINA 6. Suicidal Behavior (Lifetime) No 10/17/2024 9:20 AM Jackelin Wang, SALINA documented as of this encounter Plan of Treatment Upcoming Encounters Date Type Department Care Team (Late st Contact Info) Description 05/21/2025 Procedure Pass [facility] Imaging Department, [facility], [place] [address] [facility], Floor L1 [place] [address] 05/21/2025 Procedure Pass [facility] Imaging Department, [facility], [place] [address] [facility], Floor L1 [place] [address] 07/31/2025 7:40 AM EDT Appointment [facility] Imaging Department, [facility], [place] [address] [facility], Floor L1 [place] [address] Cristian Black MD [address] [place] [address] Geoff contreras@[email or web address] 07/31/2025 12:00 PM EDT Office Visit [facility], [address], 10th [place] [address] Cristian Black MD [address] [place] [address] Geoff [email or web address] documented as of this encounter Visit Diagnoses Not on filedocumented in this encounter Care Teams Set Up Mechanic Coating Machines Relationship Specialty Start Date End Date Denis Issa MD [address] [address] PCP - General Internal Medicine 08/05/23 August Tolliver MD [address] [address] General Surgery 08/05/23 Teri Nova MD [address] [place] [address] Jocelyn@[facility] Medical Oncology 08/27/23 Willian Moss MD [address] [place] [address] honey@[facility] Surgical Oncology 10/13/23 Guerita [place] MD [address] [place] [address] [place] [address] [email or web address]@[facility] Gastrointestinal Surgery 10/13/23 Quynh Chapman MD 271 [place] [address] Landy@ [facility] Internal Medicine 10/13/23 Guerita [place] MD 271 [place] [address] [email or web address] Radiation Oncology 10/13/23 Conchita Almaraz MD [address] [place] [address] [email or web address] Internal Medicine 10/13/23 documented as of this encounter Additional Source Comments The information contained in this document represents components of the legal health record. It is not the complete legal health record.[facility]
--- OUTSIDE RECORDS SUMMARY | 2025-07-14 07:25 | XMS_ITS | Encounter Summary ---
Author Organization [facility] Address 399 [facility] [address] [place] [address] Phone Care Team Providers Care Dispatcher Tow Truck Name Role Phone Denis Issa MD Primary Care Provider [phone] August Tolliver MD Unavailable [phone] Teri Nova MD Unavailable [phone] Willian Moss MD Unavailable [phone] Guerita [place] MD Unavailable [phone] Quynh Chapman MD Unavailable [phone] Guerita Clayton MD Unavailable [phone] Conchita Almaraz MD Unavailable [phone] Encounter Details Date Type Department Care Team (Late st Contact Info) Description 10/25/2024 Procedure Pass [facility] CT Imaging, [place] [address] [place] [address] Social History Tobacco Use Types Packs/Day Years [...] high school, GED, job training, learning the Sri Lankan language, technical skills, or developing parenting skills)? [...] st Contact Info) Description 05/21/2025 Procedure Pass [facility] Imaging Department, [facility], [place] [address] [facility], Floor L1 [place] [address] 05/21/2025 Procedure Pass [facility] Imaging Department, [facility], [place] [address] [facility], Floor L1 [place] [address] 07/31/2025 7:40 AM EDT Appointment [facility] Imaging Department, [facility], [place] [address] [facility], Floor L1 [place] [address] Cristian Black MD [address] [place] [address] Geoff contreras@[facility] 07/31/2025 12:00 PM EDT Office Visit [facility], [address], 10th [place] [address] Cristian Black MD [address] [place] [address] Geoff contreras@[facility] documented as of this encounter Visit Diagnoses Not on filedocumented in this encounter Care Teams Dispatcher Tow Truck Relationship Specialty Start Date End Date Denis Issa MD 222 [facility] 301 [place] [address] PCP - General Internal Medicine 08/05/23 August Tolliver MD 175 [facility] 110 [place] [address] General Surgery 08/05/23 Teri Nova MD 450 [place] [address] Jocelyn@[email or web address] Medical Oncology 08/27/23 Willian Moss MD [address] [place] [address] [email or web address]@[facility] Surgical Oncology 10/13/23 Guerita [place] MD [address] [place] [address] [place] [address] [email or web address]@[facility] Gastrointestinal Surgery 10/13/23 Quynh [place] MD [address] [place] [phone] Landy@ [facility] Internal Medicine 10/13/23 Guerita [place] MD [address] [place] [address] [email or web address] Radiation Oncology 10/13/23 Conchita Almaraz MD [address] [place] [address] [email or web address]@[email or web address] centerGlobal [facility] Internal Medicine 10/13/23 documented as of this encounter Additional Source Comments The information contained in this document represents components of the legal health record. It is not the complete legal health record.[facility]
--- OUTSIDE RECORDS SUMMARY | 2025-07-14 07:25 | XMS_ITS | Encounter Summary ---
Author Organization [facility] Address [address] [facility] [address] [place] [address] Phone Care Team Providers Care Garden Implement Mechanic Name Role Phone Denis Issa MD Primary Care Provider [phone] August Tolliver MD Unavailable Teri Nova MD Unavailable [phone] Willian Moss MD Unavailable [phone] Guerita [place] MD Unavailable [phone] Quynh Chapman MD Unavailable [phone] Guerita Clayton MD Unavailable Conchita Almaraz MD Unavailable [phone] Encounter Details Date Type Department Care Team (Late st Contact Info) Description 09/06/2023 Procedure Pass [facility], Ct Scan - [facility] 30 [place] [address] Social History Tobacco Use Types Packs/Day Years [...] Pass [facility] Imaging Department, [facility], [place] [address] [facility], Floor L1 [place] [address] 05/21/2025 Procedure Pass [facility] Imaging Department, [facility], [place] [address] [facility], Floor L1 [place] [address] 07/31/2025 7:40 AM EDT Appointment [facility] Imaging Department, [facility], [place] [address] [facility], Floor L1 [place] [address] Cristian Black MD 450 [place] [address] Geoff [email or web address]@[email or web address] 07/31/2025 12:00 PM EDT Office Visit [facility], [facility] [address] [facility], 10th [place] [address] Cristian Black MD [address] [place] [address] Geoff contreras@[facility] documented as of this encounter Visit Diagnoses Not on filedocumented in this encounter Care Teams Garden Implement Mechanic Relationship Specialty Start Date End Date Denis Issa MD 222 [facility] 301 [place] [address] PCP - General Internal Medicine 08/05/23 August Tolliver MD 175 [facility] 110 [place] [address] General Surgery 08/05/23 Teri Nova MD [address] [place] [address] Jocelyn@[facility] Medical Oncology 08/27/23 Willian Moss MD [address] [place] [address] honey@[email or web address] Surgical Oncology 10/13/23 Guerita [place] MD [address] 3rd [place] [address] [email or web address] Gastrointestinal Surgery 10/13/23 Quynh [place] MD 271 [place] [address] Landy@ [facility] Internal Medicine 10/13/23 Guerita [place] MD 271 [place] [address] [email or web address] Radiation Oncology 10/13/23 Conchita Almaraz MD 5 [place] [address] [email or web address] Internal Medicine 10/13/23 documented as of this encounter Additional Source Comments The information contained in this document represents components of the legal health record. It is not the complete legal health record.[facility]
--- OUTSIDE RECORDS SUMMARY | 2025-07-14 07:25 | XMS_ITS | Encounter Summary ---
Author Organization [facility] Address 399 [facility] [address] [place] [address] Phone Care Team Providers Care Patient Access Name Role Phone Denis Issa MD Primary Care Provider [phone] August Tolliver MD Unavailable [phone] Teri Nova MD Unavailable [phone] Willian Moss MD Unavailable [phone] Guerita [place] MD Unavailable [phone] Quynh Chapman MD Unavailable [phone] Guerita Clayton MD Unavailable Conchita Almaraz MD Unavailable [phone] Encounter Details Date Type Department Care Team (Late st Contact Info) Description 11/01/2023 Procedure Pass [facility], Ct Scan - [facility] 30 [place] [address] Social History Tobacco Use Types Packs/Day Years [...] high school, GED, job training, learning the Congolese language, technical skills, or developing parenting skills)? [...] 05/21/2025 Procedure Pass [facility] Imaging Department, [facility] [place], [place] [address] [facility], Floor L1 [place] [address] 05/21/2025 Procedure Pass [facility] Imaging Department, [facility] [place], [place] [address] [facility], Floor L1 [place] [address] 07/31/2025 7:40 AM EDT Appointment [facility], [facility], [place] [address] [facility], Floor L1 [place] [address] Cristian Black MD 450 [place] [address] Geoff contreras@[facility] 07/31/2025 12:00 PM EDT Office Visit [facility], [facility] [address] [facility], 10th [place] [address] Cristian Black MD 450 [place] [address] Geoff contreras@[facility] documented as of this encounter Visit Diagnoses Not on filedocumented in this encounter Care Teams Patient Access Relationship Specialty Start Date End Date Denis Issa MD 222 [facility] 301 [place] [address] PCP - General Internal Medicine 08/05/23 August Tolliver MD 175 [facility] 110 [place] [address] General Surgery 08/05/23 Teri Nova MD [address] [place] [address] Jocelyn@[facility] Medical Oncology 08/27/23 Willian [place] MD [address] [place] [address] honey@[email or web address] Surgical Oncology 10/13/23 Guerita [place] MD [address] [place] [address] 3rd [place] [address] [email or web address] Gastrointestinal Surgery 10/13/23 Quynh [place] MD 271 [place] [address] Landy@ [facility] Internal Medicine 10/13/23 Guerita [place] MD 271 [place] [address] [email or web address] Radiation Oncology 10/13/23 Conchita Almaraz MD [address] [place] [address] [email or web address]@[facility] [email or web address]. [facility] Internal Medicine 10/13/23 documented as of this encounter Additional Source Comments The information contained in this document represents components of the legal health record. It is not the complete legal health record.[facility]
--- OUTSIDE RECORDS SUMMARY | 2025-07-14 07:25 | XMS_ITS | Encounter Summary ---
Author Organization [facility] Address [address] [facility] [address] [place] [address] Phone Care Team Providers Care Trim Carpenter Name Role Phone Denis Issa MD Primary Care Provider [phone] August Tolliver MD Unavailable Teri Nova MD Unavailable Willian Moss MD Unavailable Guerita [place] MD Unavailable [phone] Quynh Chapman MD Unavailable [phone] Guerita Clayton MD Unavailable Conchita Almaraz MD Unavailable [phone] Encounter Details Date Type Department Care Team (Late st Contact Info) Description 12/09/2023 [facility], MRI [address] [facility] 4th [place] [address] Social History Tobacco Use Types [...] 05/21/2025 Procedure Pass [facility] Imaging Department, [facility] [place], [place] [address] [facility], Floor L1 [place] [address] 05/21/2025 Procedure Pass [facility] Imaging Department, [facility], [place] [address] [facility], Floor L1 [place] [address] 07/31/2025 7:40 AM EDT Appointment [facility], [facility], [place] [address] [facility], Floor L1 [place] [address] Cristian Black MD 450 [place] [address] Geoff contreras@[facility] 07/31/2025 12:00 PM EDT Office Visit [facility], [facility] 450 [facility], 10th [place] [address] Cristian Black MD 450 [place] [address] Geoff contreras@[facility] documented as of this encounter Visit Diagnoses Not on filedocumented in this encounter Care Teams Trim Carpenter Relationship Specialty Start Date End Date Denis Issa MD 222 [facility] 301 [place] [address] PCP - General Internal Medicine 08/05/23 August Tolliver MD 175 [facility] 110 [place] [address] General Surgery 08/05/23 Teri Nova MD [address] [place] [address] Jocelyn@[facility] Medical Oncology 08/27/23 Willian Moss MD [address] [place] [address] [email or web address]@[email or web address] Surgical Oncology 10/13/23 Guerita [place] MD [address] [place] [address] 3rd [place] [address] [email or web address]@[facility] Gastrointestinal Surgery 10/13/23 Quynh [place] MD 271 [place] [phone] Landy@ [facility] hospitalL[facility] Internal Medicine 10/13/23 Guerita [place] MD 271 [place] [address] [email or web address]@[email or web address] Radiation Oncology 10/13/23 Conchita Almaraz MD [address] [place] [address] clarence@[facility] centerLumetricsriver[facility] hospital Internal Medicine 10/13/23 documented as of this encounter Additional Source Comments The information contained in this document represents components of the legal health record. It is not the complete legal health record.[facility]
--- OUTSIDE RECORDS SUMMARY | 2025-07-14 07:25 | XMS_ITS | Encounter Summary ---
Author Organization [facility] Address [address] [place] [address] Phone Care Team Providers Care Butcher Or Smallgoods Maker Name Role Phone Denis Issa MD Primary Care Provider [phone] August Tolliver MD Unavailable [phone] Teri Nova MD Unavailable [phone] Willian Moss MD Unavailable Guerita Madrid MD Unavailable [phone] Quynh Chapman MD Unavailable [phone] Guerita Clayton MD Unavailable Conchita Almaraz MD Unavailable [phone] Encounter Details Date Type Department Care Team (Late st Contact Info) Description 08/09/2024 Procedure Pass [facility] Aeronautical [facility] [address] [facility] [address] [place] [address] Social History Tobacco Use Types [...] high school, GED, job training, learning the Uzbek language, technical skills, or developing parenting skills)? [...] st Contact Info) Description 05/21/2025 Procedure Pass [facility] Imaging Department, [facility] [place] [address] [facility], Floor [address]1 [place] [address] 05/21/2025 Procedure Pass [facility] Imaging Department, [facility] [place] [address] [facility], Floor [address]1 [place] [address] 07/31/2025 7:40 AM EDT Appointment [facility] Imaging Department, [facility] [place] [address] [facility], Floor [address]1 [place] [address] Cristian Black MD 450 [place] [address] Geoff contreras@[facility] 07/31/2025 12:00 PM EDT Office Visit [facility], [address], 10th [place] [address] Cristian Black MD 450 [place] [address] Geoff contreras@[facility] documented as of this encounter Visit Diagnoses Not on filedocumented in this encounter Care Teams Butcher Or Smallgoods Maker Relationship Specialty Start Date End Date Denis Issa MD [address] [address] PCP - General Internal Medicine 08/05/23 August Tolliver MD [address] [place] [address] General Surgery 08/05/23 Teri Nova MD [address] [place] [address] Jocelyn@[email or web address] Medical Oncology 08/27/23 Willian Moss MD [address] [place] [address] [email or web address] Surgical Oncology 10/13/23 Guerita Madrid MD [address] [place] [address] [email or web address] Gastrointestinal Surgery 10/13/23 Quynh Chapman MD 271 [place] [address] Landy@ [facility] Internal Medicine 10/13/23 Guerita Clayton MD 271 [place] [address] [email or web address] Radiation Oncology 10/13/23 Conchita Almaraz MD [address] [place] [address] [email or web address] Internal Medicine 10/13/23 documented as of this encounter Additional Source Comments The information contained in this document represents components of the legal health record. It is not the complete legal health record.[facility]
--- OUTSIDE RECORDS SUMMARY | 2025-07-14 07:25 | XMS_ITS | Encounter Summary ---
Author Organization [facility] Address [address] [place] [address] Phone Care Team Providers Care Health And Wellness Advisor Name Role Phone Denis Issa MD Primary Care Provider [phone] August Tolliver MD Unavailable [phone] Teri Nova MD Unavailable [phone] Willian Moss MD Unavailable Guerita Madrid MD Unavailable [phone] Quynh Chapman MD Unavailable [phone] Guerita Clayton MD Unavailable [phone] Conchita Almaraz MD Unavailable [phone] Encounter Details Date Type Department Care Team (Late st Contact Info) Description 08/09/2024 Procedure Pass [facility] Process Excellence Manager Center [address] [facility] [address] [place] [address] Social History Tobacco Use Types [...] high school, GED, job training, learning the Mozambican language, technical skills, or developing parenting skills)? [...] st Contact Info) Description 05/21/2025 Procedure Pass [facility] Imaging Department, [facility], [place] [address] [facility], Floor [address]1 [place] [address] 05/21/2025 Procedure Pass [facility] Imaging Department, [facility] [place] [address] [facility], Floor [address]1 [place] [address] 07/31/2025 7:40 AM EDT Appointment [facility] Imaging Department, [facility], [place] [address] [facility], Floor [address]1 [place] [address] Cristian Black MD 450 [place] [address] Geoff contreras@[email or web address] 07/31/2025 12:00 PM EDT Office Visit [facility], [address], 10th [place] [address] Cristian Black MD 450 [place] [address] Geoff contreras@[facility] documented as of this encounter Visit Diagnoses Not on filedocumented in this encounter Care Teams Health And Wellness Advisor Relationship Specialty Start Date End Date Denis Issa MD [address] [address] PCP - General Internal Medicine 08/05/23 August Tolliver MD [address] [place] [address] General Surgery 08/05/23 Teri Nova MD [address] [place] [address] [email or web address]@[email or web address] Medical Oncology 08/27/23 Willian Moss MD [address] [place] [address] honey@[email or web address] Surgical Oncology 10/13/23 Guerita Madrid MD [address] [place] [address] [email or web address] Gastrointestinal Surgery 10/13/23 Quynh Chapman MD 271 [place] [address] Landy@ [facility] Internal Medicine 10/13/23 Guerita Clayton MD 271 [place] [address] [email or web address] Radiation Oncology 10/13/23 Conchita Almaraz MD [address] [place] [address] [email or web address] Internal Medicine 10/13/23 documented as of this encounter Additional Source Comments The information contained in this document represents components of the legal health record. It is not the complete legal health record.[facility]
--- OUTSIDE RECORDS SUMMARY | 2025-07-14 07:25 | XMS_ITS | Encounter Summary ---
Author Organization [facility] Address [address] [facility] [address] [place] [address] Phone Care Team Providers Care Team Manager Name Role Phone Denis Issa MD Primary Care Provider [phone] August Tolliver MD Unavailable Teri Nova MD Unavailable [phone] Willian Moss MD Unavailable [phone] Guerita Madrid MD Unavailable [phone] Quynh Chapman MD Unavailable [phone] Guerita Clayton MD Unavailable [phone] Conchita Almaraz MD Unavailable [phone] Encounter Details Date Type Department Care Team (Late st Contact Info) Description 10/25/2024 Procedure Pass [facility]'s Administrative Office Assistant [place] [address] [place] [address] Social History Tobacco Use Types Packs/Day Years [...] high school, GED, job training, learning the Eritrean language, technical skills, or developing parenting skills)? [...] st Contact Info) Description 05/21/2025 Procedure Pass [facility] Imaging Department, [facility] [place] [address], [address]1 [place] [address] 05/21/2025 Procedure Pass [facility] Imaging Department, [facility] [place] [address], [address] [place] [address] 07/31/2025 7:40 AM EDT Appointment [facility] Imaging Department, [facility], [place] [address], [address]1 [place] [address] Cristian Black MD [address] [place] [address] Geoff contreras@[facility] 07/31/2025 12:00 PM EDT Office Visit [facility], [address], 10th [place] [address] Cristian Black MD [address] [place] [address] Geoff contreras@[facility] documented as of this encounter Visit Diagnoses Not on filedocumented in this encounter Care Teams Team Manager Relationship Specialty Start Date End Date Denis Issa MD 222 [facility] 301 [place] [address] PCP - General Internal Medicine 08/05/23 August Tolliver MD [address] [facility] 110 [place] [address] General Surgery 08/05/23 Teri Nova MD 450 [place] [address] Jocelyn@[facility] Medical Oncology 08/27/23 Willian Moss MD [address] [place] [address] [email or web address]@[facility] Surgical Oncology 10/13/23 Guerita Madrid MD [address] [place] [address] [place] [address] [email or web address]@[facility] Gastrointestinal Surgery 10/13/23 Quynh Chapman MD [address] [place] [phone] Landy@ [facility] Internal Medicine 10/13/23 Guerita Clayton MD 271 [place] [address] [email or web address] Radiation Oncology 10/13/23 Conchita Almaraz MD [address] [place] [address] [email or web address] Internal Medicine 10/13/23 documented as of this encounter Additional Source Comments The information contained in this document represents components of the legal health record. It is not the complete legal health record.[facility]
--- OUTSIDE RECORDS SUMMARY | 2025-07-14 07:25 | XMS_ITS | Encounter Summary ---
Author Organization [facility] Address [address] [facility] [address] [place] [address] Phone Care Team Providers Care Relief Salesperson Name Role Phone Denis Issa MD Primary Care Provider [phone] August Tolliver MD Unavailable Teri Nova MD Unavailable [phone] Willian Moss MD Unavailable [phone] Guerita Madrid MD Unavailable [phone] Quynh Chapman MD Unavailable [phone] Guerita Clayton MD Unavailable Conchita Almaraz MD Unavailable [phone] Encounter Details Date Type Department Care Team (Late st Contact Info) Description 08/09/2024 Procedure Pass [facility] CT Imaging, [place] [address] [place] [address] Social History Tobacco Use Types Packs/Day Years [...] high school, GED, job training, learning the Jordanian language, technical skills, or developing parenting skills)? [...] Contact Info) Description 05/21/2025 Procedure Pass [facility] Imaging Department, [facility] [place], [place] [address] [facility], Floor L1 [place] [address] 05/21/2025 Procedure Pass [facility] Imaging Department, [facility] [place], [place] [address] [facility], Floor L1 [place] [address] 07/31/2025 7:40 AM EDT Appointment [facility] Imaging Department, [facility], [place] [address] [facility], Floor [address]1 [place] [address] Cristian Black MD 450 [place] [address] Geoff contreras@[facility] 07/31/2025 12:00 PM EDT Office Visit [facility], [facility] [address] [facility], 10th [place] [address] Cristian Black MD 450 [place] [address] Geoff contreras@[facility] documented as of this encounter Visit Diagnoses Not on filedocumented in this encounter Care Teams Relief Salesperson Relationship Specialty Start Date End Date Denis Issa MD 222 [facility] 301 [place] [address] PCP - General Internal Medicine 08/05/23 August Tolliver MD 175 [facility] 110 [place] [address] General Surgery 08/05/23 Teri Nova MD [address] [place] [address] Jocelyn@[facility] Medical Oncology 08/27/23 Willian Moss MD [address] [place] [address] honey@[facility] Surgical Oncology 10/13/23 Guerita Madrid MD 45 [facility] 3rd [place] [address] [email or web address] Gastrointestinal Surgery 10/13/23 Quynh Chapman MD 271 [place] [address] Landy@ [facility] Internal Medicine 10/13/23 Guerita Clayton MD 271 [place] [address] [email or web address] Radiation Oncology 10/13/23 Conchita Almaraz MD [address] [place] [address] [email or web address] Internal Medicine 10/13/23 documented as of this encounter Additional Source Comments The information contained in this document represents components of the legal health record. It is not the complete legal health record.[facility]
--- OUTSIDE RECORDS SUMMARY | 2025-07-14 07:25 | XMS_ITS | Encounter Summary ---
Author Organization [facility] Address [address] [facility] [address] [place] [address] Phone Care Team Providers Care Management Aide Name Role Phone Denis Issa MD Primary Care Provider [phone] August Tolliver MD Unavailable Teri Nova MD Unavailable [phone] Willian Moss MD Unavailable [phone] Guerita Madrid MD Unavailable [phone] Quynh Chapman MD Unavailable [phone] Guerita Clayton MD Unavailable Conchita Almaraz MD Unavailable [phone] Encounter Details Date Type Department Care Team (Late st Contact Info) Description 09/22/2023 Procedure Pass [facility] Cross Sectional Interventional Radiology [address] [place] [address] Social History Tobacco Use Types Packs/Day Years Used Date Smoking Tobacco: Some Days Cigars Smokeless Tobacco: Never Comments:Cigar on special oc casions Alcohol Use Standard Drinks/Week Comments Yes 2 [...] high school, GED, job training, learning the Norwegian language, technical skills, or developing parenting skills)? [...] Info) Description 05/21/2025 Procedure Pass [facility] Imaging Department, [facility] [place], [place] [address] [facility], Floor [address]1 [place] [address] 05/21/2025 Procedure Pass [facility] Imaging Department, [facility] [place], [place] [address] [facility], Floor L1 [place] [address] 07/31/2025 7:40 AM EDT Appointment [facility] Imaging Department, [facility], [place] [address] [facility], Floor [address]1 [place] [address] Cristian Black MD 450 [place] [address] Geoff contreras@[facility] 07/31/2025 12:00 PM EDT Office Visit [facility], [facility] [address] [facility], 10th [place] [address] Cristian Black MD 450 [place] [address] Geoff contreras@[facility] documented as of this encounter Visit Diagnoses Not on filedocumented in this encounter Care Teams Management Aide Relationship Specialty Start Date End Date Denis Issa MD 222 [facility] 301 [place] [address] PCP - General Internal Medicine 08/05/23 August Tolliver MD 175 [facility] 110 [place] [address] General Surgery 08/05/23 Teri Nova MD [address] [place] [address] Jocelyn@[email or web address] Medical Oncology 08/27/23 Willian Moss MD [address] [place] [address] [email or web address]@[facility] Surgical Oncology 10/13/23 Guerita Madrid MD [address] [place] [address] 3rd [place] [address] gopi@[facility] Gastrointestinal Surgery 10/13/23 Quynh Chapman MD 271 [place] [address] Landy@ [facility] Internal Medicine 10/13/23 Guerita Clayton MD 271 [place] [address] [email or web address]@[email or web address] Radiation Oncology 10/13/23 Conchita Almaraz MD [address] [place] [address] [email or web address]@[facility] Internal Medicine 10/13/23 documented as of this encounter Additional Source Comments The information contained in this document represents components of the legal health record. It is not the complete legal health record.[facility]
--- OUTSIDE RECORDS SUMMARY | 2025-07-14 07:25 | XMS_ITS | Encounter Summary ---
Author Organization [facility] Address [address] [facility] [address] [place] [address] Phone Care Team Providers Care Metal Spray Operator Name Role Phone Denis Issa MD Primary Care Provider [phone] August Tolliver MD Unavailable Teri Nova MD Unavailable [phone] Willian Moss MD Unavailable [phone] Guerita Madrid MD Unavailable Quynh Chapman MD Unavailable [phone] Guerita Clayton MD Unavailable [phone] Conchita Almaraz MD Unavailable [phone] Encounter Details Date Type Department Care Team (Late st Contact Info) Description 09/06/2023 Ancillary Orders [facility] General & GI Surgery [address] [facility] [address] [place] [address] Guerita Madrid MD 45 [facility]. 3rd [place] [address] [email or web address] Social History Tobacco Use Types Packs/Day Years [...] high school, GED, job training, learning the Zimbabwean language, technical skills, or developing parenting skills)? [...] Contact Info) Description 05/21/2025 Procedure Pass [facility] Imaging Department, [facility] [place], [place] [address] [facility], Floor [address]1 [place] [address] 05/21/2025 Procedure Pass [facility] Imaging Department, [facility], [place] [address] [facility], Floor [address]1 [place] [address] 07/31/2025 7:40 AM EDT Appointment [facility] Imaging Department, [facility], [place] [address] [facility], Floor [address]1 [place] [address] Cristian Black MD [address] [place] [address] Geoff contreras@[facility] 07/31/2025 12:00 PM EDT Office Visit [facility], [address], 10th [place] [address] Cristian Black MD [address] [place] [address] Geoff contreras@[facility] documented as of this encounter Visit Diagnoses Not on filedocumented in this encounter Care Teams Metal Spray Operator Relationship Specialty Start Date End Date Denis Issa MD [address] [address] PCP - General Internal Medicine 08/05/23 August Tolliver MD [address] [address] General Surgery 08/05/23 Teri Nova MD [address] [place] [address] Jocelyn@[email or web address] Medical Oncology 08/27/23 Willian Moss MD [address] [place] [address] [email or web address]@[facility] Surgical Oncology 10/13/23 Guerita Madrid MD [address] [place] [place] [address] gopi@[facility] Gastrointestinal Surgery 10/13/23 Quynh Chapman MD 271 [place] [address] Landy@ [facility] Internal Medicine 10/13/23 Guerita Clayton MD 271 [place] [address] [email or web address] Radiation Oncology 10/13/23 Conchita Almaraz MD [address] [place] [address] [email or web address]@[email or web address] Internal Medicine 10/13/23 documented as of this encounter Additional Source Comments The information contained in this document represents components of the legal health record. It is not the complete legal health record.[facility]
--- OUTSIDE RECORDS SUMMARY | 2025-07-14 07:25 | XMS_ITS | Encounter Summary ---
Author Organization [facility] Address [address] [address] Phone Care Team Providers Care Music Copyist Name Role Phone Denis Issa MD Primary Care Provider [phone] August Tolliver MD Unavailable [phone] Teri Nova MD Unavailable [phone] Willian Moss MD Unavailable [phone] Guerita Madrid MD Unavailable [phone] Quynh Chapman MD Unavailable [phone] Guerita Clayton MD Unavailable Cnochita Almaraz MD Unavailable [phone] Encounter Details Date Type Department Care Team (Late st Contact Info) Description 09/06/2023 Procedure Pass [address] [place] [address] Social History Tobacco Use Types Packs/Day Years [...] high school, GED, job training, learning the Guinean language, technical skills, or developing parenting skills)? [...] Contact Info) Description 05/21/2025 Procedure Pass [facility] Imaging Department, [facility] [address] [facility], Floor L1 [place] [address] 05/21/2025 Procedure Pass [facility] Imaging Department, [facility] [address] [facility], Floor L1 [place] [address] 07/31/2025 7:40 AM EDT Appointment [facility] Imaging Department, [facility], [place] [address] [facility], Floor L1 [place] [address] Cristian Black MD [address] [place] [address] Geoff contreras@[facility] 07/31/2025 12:00 PM EDT Office Visit [facility], [address], 10th [place] [address] Cristian Black MD [address] [place] [address] Geoff contreras@[facility] documented as of this encounter Visit Diagnoses Not on filedocumented in this encounter Care Teams Music Copyist Relationship Specialty Start Date End Date Denis Issa MD 222 [facility] 301 [place] [address] PCP - General Internal Medicine 08/05/23 August Tolliver MD 175 [facility] 110 [place] [address] General Surgery 08/05/23 Teri Nova MD [address] [place] [address] Jocelyn[facility] Medical Oncology 08/27/23 Willian Moss MD [address] [place] [address] honey@[facility] Surgical Oncology 10/13/23 Guerita Madrid MD [address] [place] [address] 3rd [place] [address] [email or web address] Gastrointestinal Surgery 10/13/23 Quynh Chapman MD 271 [place] [address] Landy@ [facility] Internal Medicine 10/13/23 Guerita Clayton MD 271 [place] [address] [email or web address] Radiation Oncology 10/13/23 Conchita Almaraz MD [address] [place] [address] [email or web address]@[email or web address] Internal Medicine 10/13/23 documented as of this encounter Additional Source Comments The information contained in this document represents components of the legal health record. It is not the complete legal health record.[facility]
--- OUTSIDE RECORDS SUMMARY | 2025-07-14 07:25 | XMS_ITS | Encounter Summary ---
Author Organization [facility] Address [address] [facility] [address] [place] [address] Phone Care Team Providers Care Trim Operator Name Role Phone Denis Issa MD Primary Care Provider [phone] August Tolliver MD Unavailable [phone] Teri Nova MD Unavailable [phone] Willian Msos MD Unavailable [phone] Guerita Madrid MD Unavailable [phone] Quynh Chapman MD Unavailable [phone] Guerita Clayton MD Unavailable Conchita Almaraz MD Unavailable [phone] Encounter Details Date Type Department Care Team (Late st Contact Info) Description 10/25/2024 Procedure Pass [facility] [employer] [facility] Chief Service Dispatcher [place] [address] [place] [address] Social History Tobacco Use Types Packs/Day Years [...] high school, GED, job training, learning the Cambodian language, technical skills, or developing parenting skills)? [...] Info) Description 05/21/2025 Procedure Pass [facility] Imaging Department, [facility], [place] [address] [facility], Floor [address]1 [place] [address] 05/21/2025 Procedure Pass [facility] Imaging Department, [facility] [place] [address] [facility], Floor [address] [place] [address] 07/31/2025 7:40 AM EDT Appointment [facility] Imaging Department, [facility] [place] [address] [facility], Floor [address] [place] [address] Cristian Black MD [address] [place] [address] Geoff [email or web address] 07/31/2025 12:00 PM EDT Office Visit [facility], [address] 10th [place] [address] Cristian Black MD [address] [place] [address] Geoff [email or web address] documented as of this encounter Visit Diagnoses Not on filedocumented in this encounter Care Teams Trim Operator Relationship Specialty Start Date End Date Denis Issa MD [address] [facility] 301 [place] [address] PCP - General Internal Medicine 08/05/23 August Tolliver MD 175 [facility] 110 [place] [address] General Surgery 08/05/23 Teri Nova MD 450 [place] [address] [email or web address] Medical Oncology 08/27/23 Willian Moss MD [address] [place] [address] [email or web address] Surgical Oncology 10/13/23 Guerita Madrid MD [address] [place] [address] [place] [address] [email or web address] Gastrointestinal Surgery 10/13/23 Quynh Chapman MD [address] [place] [phone] Landy@ [email or web address] Internal Medicine 10/13/23 Guerita Clayton MD [address] [place] [address] [email or web address] Radiation Oncology 10/13/23 Conchita Almaraz MD [address] [place] [address] [email or web address] Internal Medicine 10/13/23 documented as of this encounter Additional Source Comments The information contained in this document represents components of the legal health record. It is not the complete legal health record.[facility]
--- OUTSIDE RECORDS SUMMARY | 2025-07-14 07:25 | XMS_ITS | Encounter Summary ---
Author Organization [facility] Address [address] [facility] [address] [place] [address] Phone Care Team Providers Care Cooker Helper Name Role Phone Denis Issa MD Primary Care Provider [phone] August Tolliver MD Unavailable [phone] Teri Nova MD Unavailable [phone] Willian Moss MD Unavailable [phone] Guerita Madrid MD Unavailable [phone] Quynh Chapman MD Unavailable [phone] Guerita Clayton MD Unavailable [phone] Conchita Almaraz MD Unavailable [phone] Encounter Details Date Type Department Care Team (Late st Contact Info) Description 12/14/2024 Procedure Pass [facility] [address] [place] [address] Social History Tobacco Use Types Packs/Day Years [...] high school, GED, job training, learning the [place] language, technical skills, or developing parenting skills)? [...] Contact Info) Description 05/21/2025 Procedure Pass [facility] Imaging Department, [facility], [place] [address] [facility], Floor [address]1 [place] [address] 05/21/2025 Procedure Pass [facility] Imaging Department, [facility], [place] [address] [facility], [address] [place] [address] 07/31/2025 7:40 AM EDT Appointment [facility] Imaging Department, [facility], [place] [address] [facility], [address] [place] [address] Cristian Black MD [address] [place] [phone] Geoff [email or web address] 07/31/2025 12:00 PM EDT Office Visit [facility], [address], 10th [place] [address] Cristian Black MD [address] [place] [address] Geoff [email or web address] documented as of this encounter Visit Diagnoses Not on filedocumented in this encounter Care Teams Cooker Helper Relationship Specialty Start Date End Date Denis Issa MD 222 [facility] 301 [place] [address] PCP - General Internal Medicine 08/05/23 August Tolliver MD 175 [facility] 110 [place] [address] General Surgery 08/05/23 Teri Nova MD 450 [place] [address] [email or web address] Medical Oncology 08/27/23 Willian Moss MD [address] [place] [phone] [email or web address] Surgical Oncology 10/13/23 Guerita Madrid MD [address] [place] [address] [place] [address] [email or web address] Gastrointestinal Surgery 10/13/23 Quynh Chapman MD [address] [place] [phone] Landy@ [email or web address] Internal Medicine 10/13/23 Guerita Clayton MD [address] [place] [address] [email or web address] Radiation Oncology 10/13/23 Conchita Almaraz MD [address] [place] [address] [email or web address] Internal Medicine 10/13/23 documented as of this encounter Additional Source Comments The information contained in this document represents components of the legal health record. It is not the complete legal health record.[facility]
--- OUTSIDE RECORDS SUMMARY | 2025-07-14 07:25 | XMS_ITS | Encounter Summary ---
Author Organization [facility] Address [address] [facility] [address] [place] [address] Phone Care Team Providers Care Deputy Manager Name Role Phone Denis Issa MD Primary Care Provider [phone] August Tolliver MD Unavailable [phone] Teri Nova MD Unavailable [phone] Willian Moss MD Unavailable [phone] Guerita Madrid MD Unavailable [phone] Quynh Chapman MD Unavailable [phone] Guerita Clayton MD Unavailable Conchita Almaraz MD Unavailable [phone] Encounter Details Date Type Department Care Team (Late st Contact Info) Description 11/01/2023 Procedure Pass [facility], Ct Scan - [facility] [address] [place] [address] Social History Tobacco Use Types Packs/Day Years [...] high school, GED, job training, learning the [place] language, technical skills, or developing parenting skills)? [...] 05/21/2025 Procedure Pass [facility] Imaging [facility], [facility] [place], [place] [address] [facility], Floor [address]1 [place] [address] 05/21/2025 Procedure Pass [facility], [facility] [place] [address] [facility], Floor [address] [place] [address] 07/31/2025 7:40 AM EDT Appointment [facility], [facility], [place] [address] [facility], [address] [place] [address] Cristian Black MD 450 [place] [address] Geoff [email or web address] 07/31/2025 12:00 PM EDT Office Visit [facility], [facility] 450 [facility], 10th [place] [address] Cristian Black MD [address] [place] [address] Geoff [email or web address] documented as of this encounter Visit Diagnoses Not on filedocumented in this encounter Care Teams Deputy Manager Relationship Specialty Start Date End Date Denis Issa MD 222 [facility] 301 [place] [address] PCP - General Internal Medicine 08/05/23 August Tolliver MD 175 [facility] 110 [place] [address] General Surgery 08/05/23 Teri Nova MD [address] [place] [address] [email or web address] Medical Oncology 08/27/23 Willian Moss MD [address] [place] [phone] [email or web address] Surgical Oncology 10/13/23 Guerita Madrid MD [address] [place] [address] 3rd [place] [address] [email or web address] Gastrointestinal Surgery 10/13/23 Quynh Chapman MD [address] [place] [phone] Landy@ [facility] Internal Medicine 10/13/23 Guerita Clayton MD [address] [place] [address] [email or web address] Radiation Oncology 10/13/23 Conchita Almaraz MD [address] [place] [address] [email or web address] Biomedicalcache [facility] Internal Medicine 10/13/23 documented as of this encounter Additional Source Comments The information contained in this document represents components of the legal health record. It is not the complete legal health record.[facility]
[2025-07-14 08:24] LABS: Hematocrit 36.0 % (42.0-52.0); Hemoglobin 12.6 g/dl (14.0-18.0); Imm Gran Abs Auto 0.02 X10*3/uL (0.00-0.03); Imm Gran Pct Auto 0.7 % (0.0-0.4); Lymphocytes Absolute Auto 0.6 X10*3/uL (1.2-4.9); MANUAL DIFF FLAG SCAN; Mean Corpuscular HGB Conc 35.0 g/dl (31.0-36.0); Mean Corpuscular Hemoglobin 34.3 pg (27.0-33.0); Mean Corpuscular Volume 98.1 fL (80.0-98.0); NRBC Abs Auto 0.040 X10*3/uL (0.0-0.012); Platelet Count 109 X10*3/uL (160-400); Red Blood Count 3.67 X10*6/uL (4.60-5.80); SCAN SMEAR FLAG 1; White Blood Count 3.0 X10*3/uL (4.8-10.8)
[2025-07-14 08:25] LABS: NRBC Pct Auto 1.3 /100WBC (0.0-0.2)
[2025-07-14 08:58] LABS: Appearance Urine Clear; Glucose Urine UA Negative (Negative); PH 6.5 (5.0-9.0); Specific Gravity - Urine <= 1.005 (1.005-1.025)
[2025-07-14 09:05] LABS: Alanine Aminotransferase 62 U/L (0-40); Albumin Level 3.8 g/dL (3.5-5.0); Alkaline Phosphatase 144 U/L (39-117); Aspartate Amino Transferase 67 U/L (5-37); Blood Urea Nitrogen 3 mg/dL (9-16); Calcium 8.7 mg/dL (8.4-10.2); Estimated Glomerular Filt Rate > 60; Magnesium 1.7 mg/dL (1.6-2.6); Total Protein 6.3 g/dL (6.5-8.0)
[2025-07-14 09:15] LABS: Anion Gap 19 (12-20); Carbon Dioxide 24 mmol/L (22-29); Chloride 100 mmol/L (96-108); Sodium 140 mmol/L (135-145)
[2025-07-14 09:20] LABS: Potassium 2.8 mmol/L (3.3-5.1)
== END 2025-07-14 07:23 | disposition home or self-care (01) ==
LOC: HO.LAB 07:22
PROVIDERS: PCP Internal Medicine; Visit Provider Internal Medicine
DX: C20 Malignant neoplasm of rectum (principal)
CPT/HCPCS: 36415; 80053; 81003; 83735; 85025

== ENCOUNTER → 2025-10-29 14:46 | Outpatient (BNVA) | payer SELFPAY | PROVIDERS: PCP Internal Medicine; Visit Provider Physician Assistant Medical | DX: Z02.79 Encounter for issue of other medical certificate (principal) ==